=== PATIENT | female | born 1995 | race African-American/Black ===

== ENCOUNTER 2022-08-13 08:40 | Emergency (ER) | payer MEDICAID, SELFPAY ==
[2022-08-13 08:45] VITALS: BP 122/99; PULSE 83; RESP 18; TEMP 36.9; O2SAT 97; BMI 32.4
--- OUTSIDE RECORDS SUMMARY | 2022-08-13 09:08 | XMS_ITS | Clinical Summary ---
:1995 Author Organization [facility] Address [address], [place] [address] Care Team Providers Name Role Phone Unavailable Primary Care Provider Unavailable Source Comments You are receiving this document as you are listed as the primary care provider,follow-up provider, or the patient has been referred to you for consultation.This is in compliance with the Medicare and Medicaid EHR Incentive Program,which states Providers who transition their patient to another setting of careor provider of care or refers their patient to another provider of care shouldprovide summarycare record for each transition of care or referral. [facility] Allergies No known active allergies Medications Medication Sig Dispensed Refills Start Date End Date Status ULTICARE MINI PEN 0 12/25/2020 A ctive NEEDLES Blood Glucose Use to test test 1 Kit 0 06/04/2021 Active Monitoring Suppl blood sugars (ACCU-CHEK GUIDE) w/Device KITIndications: Uncontrolled type 2 diabetes mellitus with hyperglycemia (HRC) insulin NPH, human Inject 18 Units 30 mL 3 11/02/2021 12/2 05/2022 Active isophane, (HUMULIN subcutaneously every NPH) 100 UNIT/ML evening. injectionIndication s: Uncontrolled type 2 diabetes mellitus with hyperglycemia (HRC), Obesity, unspecified obesity severity, unspecified obesity type (HRC) ACCU-CHEK GUIDE Use 5-6 Each to test 200 Strip 6 02/01/2022 Active test daily. stripIndications: Uncontrolled type 2 diabetes mellitus with hyperglycemia (HRC) ACCU-CHEK SOFTCLIX Use 4-6 Each to test 200 Each 6 02/01/2022 Active lancetsIndications: daily. Uncontrolled type 2 diabetes mellitus with hyperglycemia (HRC) NOVOLOG FLEXPEN 100 Inject 20-25 units 75 mL 3 02/11/2022 Active UNIT/ML pen with each meal injectionIndication s: Uncontrolled type 2 diabetes mellitus with hyperglycemia (HRC), Obesity, unspecified obesity severity, unspecified obesity type (HRC) Active Problems Problem Noted Date Uncontrolled type 2 diabetes mellitus with hyperglycem ia 05/13/2021 complicated by pre-existing type 2 diabetes in first trimester 05/13/2021 Obesity, unspecified obesity severity, unspecified obe sity type 05/13/2021 Social History Tobacco Use Types Packs/Day Years Used Date Smoking Tobacco: Never Smokeless Tobacco: Never Alcohol Use Standard Drinks/Week Comments Never 0 (1 standard drink = 0.6 oz pure alcoho l) Alcohol Habits Answer Date Recorded How often do you have a drink containing alcohol? Never 05/08/2021 How many drinks containing alcohol do you have on a typical Not asked day when you are drinking? How often do you have six or more drinks on one occasion? No t asked Comment: Not asked Sex Assigned at Date Recorded Not on file Last Filed Vital Signs Vital Sign Reading Time Taken Comments Blood Pressure 127/96 01/12/2021 11:21 AM WOOD LATHE OPERATOR Pulse 79 01/12/2021 11:21 AM WOOD LATHE OPERATOR Temperature - - Respiratory Rate - - Oxygen Saturation - - Inhaled Oxygen Concentration - - Weight 87.1 kg (192 lb 1.6 oz) 01/12/2021 11:21 AM WOOD LATHE OPERATOR Height 165.1 cm (5' 5) 01/12/2021 11:21 AM WOOD LATHE OPERATOR Body Mass Index 31.97 01/12/2021 11:21 AM WOOD LATHE OPERATOR Plan of Treatment Upcoming Encounters Date Type Specialty Care Team Description 09/08/2022 Telemedicine Endocrinology Marsha Acosta ra, MD [address] [facility] [id number] (Wo rk) Health Maintenance Due Date Last Done Comments Cervical Cancer Screening Due 1993 Diabetes: Foot Exam 1993 COVID-19 Vaccine (#1) 1993 Pneumococcal (1 - PCV) 1999 HIV Screening (Preventive 2009 Services) Adult Preventive Visit 2011 DTaP/Tdap/Td (1 - Tdap) 2012 HepB (1) 2012 Diabetes: HGBA1C 03/28/2021 12/29/2020, 12/29/2020 Diabetes: Creatinine 12/29/2021 12/29/2020 Diabetes: Urine Microalbumin 12/29/2021 12/29/2020 Diabetes: Eye Exam 01/27/2022 01/27/2021 Influenza (#1) 2022 12/18/2020, 12/18/2020, 10/22/2019 Diabetes: Lipid Panel 12/29/2025 12/29/2020 Zoster/Shingles (1 of 2) 2043 HPV Vaccine Aged Out 12/18/2020, No longer eligib le based 05/13/2020, on patient's age to 10/22/2019 complete [facility] to [facility] Hep C Screening (Preventive Completed 01/12/2021 Services) HepA Aged Out No longer eligib le based on patient's age to complete this to pic Hib Aged Out No longer eligib le based on patient's age to complete this to pic IPV (Polio) Aged Out No longer eligib le based on patient's age to complete this to pic MCV4 Aged Out No longer eligib le based on patient's age to complete this to pic
--- OUTSIDE RECORDS SUMMARY | 2022-08-13 09:08 | XMS_ITS | Encounter Summary ---
:1995 Author Organization [facility] Address [address] [address] Care Team Providers Name Role Phone Unavailable Primary Care Provider Unavailable Encounter Details Date Type Department Care Team Description 02/11/2022 Notes/Orders [facility] [address] Lavern Santos Uncont rollgoldie type 2 diabetes mellitus with hyperglycemia (HRC); Endocrinology RN Obesity, unspecified obesity severity, unspecified obesity type [address] [place] [address] Social History Tobacco Use Types Packs/Day Years [...] Assigned at Date Recorded Not on file documented as of this encounter Progress Notes Lavern Santos RN - 02/11/2022 9:22 AM CDT Pt called asking for an updated Rx of Novolog to reflect her current dose of 20- 25 units per meal. She is 7 months and her OB increased her dose. She is out of insulin as of today. Please review Rx and sign if appropriate, thank you! documented in this encounter Plan of Treatment Upcoming Encounters Date Type Specialty Care Team Description 09/08/2022 Telemedicine Endocrinology Marsha Acosta ra, MD [address] [facility] [address] [id number] (Wo rk) documented as of this encounter Visit Diagnoses Diagnosis Uncontrolled type 2 diabetes mellitus wi th hyperglycemia (HRC) Obesity, unspecified obesity severity, u nspecified obesity type (HRC) documented in this encounter
--- OUTSIDE RECORDS SUMMARY | 2022-08-13 09:08 | XMS_ITS | Encounter Summary ---
:1995 Author Organization [facility] Address [address], [place] [address] Care Team Providers Name Role Phone Unavailable Primary Care Provider Unavailable Reason for Visit Reason Onset Date Comments Refill 02/11/2022 Encounter Details Date Type Department Care Team Description 02/11/2022 Refill [facility] 3800 Jeanette Flynn PA-C Refill Endocrinology [address] [place] [address] [place], [place] [id number] [phone] Social History Tobacco Use Types Packs/Day Years [...] on file documented as of this encounter Plan of Treatment Upcoming Encounters Date Type Specialty Care Team Description 09/08/2022 Telemedicine Endocrinology Marsha Acosta ra, MD [address] [facility] N [id number] (Wo rk) documented as of this encounter Visit Diagnoses Diagnosis Uncontrolled type 2 diabetes mellitus wi th hyperglycemia (HRC) Obesity, unspecified obesity severity, u nspecified obesity type (HRC) documented in this encounter
--- OUTSIDE RECORDS SUMMARY | 2022-08-13 09:08 | XMS_ITS | Encounter Summary ---
:1995 Author Organization [facility] Address [address] [address] Care Team Providers Name Role Phone Unavailable Primary Care Provider Unavailable Reason for Visit Reason Onset Date Comments Refill 02/01/2022 Encounter Details Date Type Department Care Team Description 02/01/2022 Refill [facility] 3800 Elizabeth Rodríguez MD Refill Endocrinology [address] [place] [address] [place] [address] [phone] Social History Tobacco Use Types Packs/Day Years [...] on file documented as of this encounter Nursing Notes Henrietta Otero RN - 02/01/2022 12:01 PM CDT Renewed medication per medication refill protocol. Requested Prescriptions Signed Prescriptions Disp Refills ??? ACCU-CHEK GUIDE test strip 200 Strip 6 Sig: Use 5-6 Each to test daily. Authorizing Provider: SANJU RODRÍGUEZ Ordering User: HENRIETTA OTERO ??? ACCU-CHEK SOFTCLIX lancets 200 Each 6 Sig: Use 4-6 Each to test daily. Authorizing Provider: SANJU RODRÍGUEZ Ordering User: HENRIETTA OTERO documented in this encounter Plan of Treatment Upcoming Encounters Date Type Specialty Care Team Description 09/08/2022 Telemedicine Endocrinology Marsha Rodríguez ra, MD [address] [facility] [id number] (Wo rk) documented as of this encounter Visit Diagnoses Diagnosis Uncontrolled type 2 diabetes mellitus wi th hyperglycemia (HRC) - Primary documented in this encounter
--- OUTSIDE RECORDS SUMMARY | 2022-08-13 09:09 | XMS_ITS | Encounter Summary ---
:1995 Author Organization [facility] Address [address], [place] [address] Care Team Providers Name Role Phone Unavailable Primary Care Provider Unavailable Encounter Details Date Type Department Care Team Description 11/02/2021 Telephone [facility] 3800 Celina Acosta , Endocrinology [address] [place] [address] [place] [address] (Wo rk) Social History Tobacco Use Types Packs/Day Years [...] documented as of this encounter Nursing Notes Jeanette Flynn PA-C - 11/02/2021 1:41 PM CST Prescriptions signed and sent in Dr. Acosta's absence. Thank you, Jeanette Flynn PA-C 11/02/2021, 1:41 PM ICAL LANGUAGES PROFESSOR Elizabeth Vaca RN - 11/02/2021 1:31 PM CST Pharmacy calling in. Pt is at pharmacy for refill. They do not have updated rx at [facility]. See note from 10/13. Please see pending rx and send if approved. Pt verified dosing with pharmacy. Routing to refrigeration service inspector as Dr. Acosta not in. ICAL LANGUAGES PROFESSOR documented in this encounter Plan of Treatment Upcoming Encounters Date Type Specialty Care Team Description 09/08/2022 Telemedicine Endocrinology Marsha Acosta ra, MD [address] [facility] N [id number] (Wo rk) documented as of this encounter Visit Diagnoses Diagnosis Uncontrolled type 2 diabetes mellitus wi th hyperglycemia (HRC) Obesity, unspecified obesity severity, u nspecified obesity type (HRC) documented in this encounter
--- OUTSIDE RECORDS SUMMARY | 2022-08-13 09:09 | XMS_ITS | Encounter Summary ---
:1995 Author Organization [employer] Address [address] [address] Care Team Providers Name Role Phone Unavailable Primary Care Provider Unavailable Reason for Visit Reason Comments Medication Change Encounter Details Date Type Department Care Team Description 10/09/2021 Telephone [facility] 38[address] Celina Acosta edication Change Endocrinology TMD [address] [place] [address] [address] [place], [place] [phone] (Wo rk) Social History Tobacco Use Types [...] documented as of this encounter Nursing Notes Tracey Clark, RN - 10/09/2021 2:00 PM CST Pt returning call for below message. She verbalizes understanding and is agreeable to the plan of care. She does not want to schedule with Grisel Alcala yet, stating she will call back another time. CARE RN Tracey Clark, RN - 10/09/2021 1:21 PM CST LVM for pt to call back for below. CARE RN Celina Acosta MD - 10/09/2021 12:55 PM CST She can start with just once at night and at 16 units only and follow up with Grisel in 1-[address] she will not have any lows. We will slowly titrate it depending on sugars. Celina Acosta MD Endocrinology Service CARE RN Tracey Clark, SAIMA - 10/09/2021 12:33 PM CST Pt calling today questioning new prescription for NPH insulin. She was under the understanding her new long acting insulin was going to be taken at night. She wants to verify she was prescribed the right drug with the right instructions. Reviewed visit note with pt- she still insisted MD be notified of her questions. CARE RN documented in this encounter Plan of Treatment Upcoming Encounters Date Type Specialty Care Team Description 09/08/2022 Telemedicine Endocrinology Marsha Acosta ra, MD [address] [facility] [address] [facility] [address] (Wo rk) documented as of this encounter Visit Diagnoses Not on filedocumented in this encounter
--- OUTSIDE RECORDS SUMMARY | 2022-08-13 09:09 | XMS_ITS | Encounter Summary ---
:1995 Author Organization [facility] Address [address], [place] [address] Care Team Providers Name Role Phone Unavailable Primary Care Provider Unavailable Reason for Visit Reason Comments Follow-up Encounter Details Date Type Department Care Team Description 06/03/2021 Telephone [facility] 3800 Sanju Rodríguez , Follow-up Endocrinology [address] [place] [address] [place], [place] [phone] (Wo rk) Social History Tobacco Use Types [...] as of this encounter Progress Notes Lavern Richmond, RN - 06/04/2021 9:37 AM CDT Addended by: LAVERN RICHMOND on: 06/04/2021 09:37 AM Modules accepted: Orders documented in this encounter Nursing Notes Lavern Richmond RN - 06/04/2021 9:35 AM CDT Pt. Verbalized understanding, agrees with plan, and has no further questions. Requested Prescriptions Signed Prescriptions Disp Refills ??? metFORMIN XR (GLUCOPHAGE XR) 500 MG 24 hour release tablet 30 Tablet 6 Sig: Take 1 Tablet by mouth every evening with a meal. Authorizing Provider: SANJU RODRÍGUEZ ??? Blood Glucose Monitoring Suppl (ACCU-CHEK GUIDE) w/Device KIT 1 Kit 0 Sig: Use to test test blood sugars Authorizing Provider: SANJU RODRÍGUEZ Ordering User: LAVERN RICHMOND Pt asked for a new meter as well. Lavern Richmond RN - 06/04/2021 8:50 AM CDT Left voicemail for Pt. To call back for message below. Sanju Rodríguez MD - 06/03/2021 5:44 PM CDT PLAN: DC insulin. Start Metformin 500 mg BID. FU in 3 months. Sanju Rodríguez MD Endocrinology Service Elizabeth Vaca RN - 06/03/2021 11:27 AM CDT Pt wanted to call and updated that she is no longer . She states since she is no longer , she should not use insulin. She wants to know what she should continue on now. She states her meter is reading the same numbers if she eats or not. If she tests before eating it will be 100 or less, and 1 hour after eating it is the same. She states she is getting multiple error messages. Pt wants you to advise. documented in this encounter Plan of Treatment Upcoming Encounters Date Type Specialty Care Team Description 09/08/2022 Telemedicine Endocrinology Marsha Rodríguez ra, MD [address] [facility] [address] [id number] (Wo rk) documented as of this encounter Visit Diagnoses Diagnosis Uncontrolled type 2 diabetes mellitus wi th hyperglycemia (HRC) - Primary documented in this encounter
--- OUTSIDE RECORDS SUMMARY | 2022-08-13 09:09 | XMS_ITS | Encounter Summary ---
:1995 Author Organization [facility] Address [address] [address] Care Team Providers Name Role Phone Unavailable Primary Care Provider Unavailable Reason for Visit Reason Comments Appt. Needed referral Encounter Details Date Type Department Care Team Description 12/26/[address] [facility] 3800 Nurse, [id number] End Appt. Needed Endocrinology [address] (referral) [address] [place] [id number] Social History Tobacco Use Types Packs/Day Years Used Date Smoking Tobacco: Never Assessed Sex Assigned at Date Recorded Not on file documented as of this encounter Nursing Notes Evangelina Smith - 12/26/2020 10:28 AM CST Faxed referral rec'd from [facility] for Hyperglycemia and DM2, records sent to scan doc AL SCIENCE INSTRUCTOR documented in this encounter Plan of Treatment Upcoming Encounters Date Type Specialty Care Team Description 09/08/2022 Telemedicine Endocrinology Marsha Acosta ra, MD [address] [facility] N [id number] (Wo rk) documented as of this encounter Visit Diagnoses Not on filedocumented in this encounter
--- OUTSIDE RECORDS SUMMARY | 2022-08-13 09:09 | XMS_ITS | Encounter Summary ---
:1995 Author Organization [facility] Address [address], [place] [address] Care Team Providers Name Role Phone Unavailable Primary Care Provider Unavailable Reason for Visit Reason Comments Blood Glucose Readings Encounter Details Date Type Department Care Team Description 10/13/2021 Telephone [facility] [address] Celina Acosta lood Glucose Readings Endocrinology MD Rasheed [address] [facility] [address] [facility] [place] [address] [phone] (Wo rk) Social History Tobacco Use Types [...] documented as of this encounter Nursing Notes Lavern Santos RN - 10/15/2021 2:49 PM CST LVM on Pt's recording with message below. WARE TOOLS BUILD ENGINEER Celina Acosta MD - 10/15/2021 2:37 PM CST Please set visit with me or one of our PA. In the mean time, increase Humulin to 18 units, novolog to 14 units per meal. Celina Acosta MD Endocrinology Service WARE TOOLS BUILD ENGINEER Lavern Santos, RN - 10/13/2021 3:58 PM CST Pt called to report high blood sugars. Novolog 12 units with each meal Humulin 16 units in PM 10/13 after breakfast 162, before lunch 153 12/ bedtime 161, 185 12/ before lunch 125, after lunch 148 These are the only readings Pt had at time of her call. Nurse: Can leave a detailed VM. WARE TOOLS BUILD ENGINEER documented in this encounter Plan of Treatment Upcoming Encounters Date Type Specialty Care Team Description 09/08/2022 Telemedicine Endocrinology Marsha Acosta ra, MD [address] [facility] [address] [id number] (Wo rk) documented as of this encounter Visit Diagnoses Not on filedocumented in this encounter
--- OUTSIDE RECORDS SUMMARY | 2022-08-13 09:09 | XMS_ITS | Encounter Summary ---
:1995 Author Organization [facility] Address [address], [place] [address] Care Team Providers Name Role Phone Unavailable Primary Care Provider Unavailable Reason for Referral Consult/Transfer Care (Routine) - Closed Specialty Diagnoses / Procedures Referred By Contact Refer red To Contact Diagnoses Eye pain, bilateral Sanju Rodríguez MD [address] [place], [place] [address] Referral ID Status Reason Start Date Expiration Date Visits Requ ested Visits Authorized [id number] Closed 01/12/2021 04/13/2022 1 1 Scheduling Instructions Your provider has recommended an appoint ment with V[address]ana Rend[facility]. You may call [phone] to schedule your appoi ntment. STANT COMMUNITY DIRECTOR Reason for Visit Reason Comments Diabetes Encounter Details Date Type Department Care Team Description 01/12/2021 Office Visit Sanju Donovan Uncontrol led type 2 diabetes mellitus with hyperglycemia (HRC) (Primary Dx); Endocrinology Akash Iqbal MD Eye pain, bilateral [address] [facility] [place] [address] [address] [phone] [place] [address] Social History Tobacco Use Types Packs/Day Years Used Date Smoking Tobacco: Never Smokeless Tobacco: Never Sex Assigned at Date Recorded Not on file documented as of this encounter Last Filed Vital Signs Vital Sign Reading Time Taken Comments Blood Pressure 127/96 01/12/2021 11:21 AM ASSISTANT COMMUNITY DIRECTOR Pulse 79 01/12/2021 11:21 AM ASSISTANT COMMUNITY DIRECTOR Temperature - - Respiratory Rate - - Oxygen Saturation - - Inhaled Oxygen Concentration - - Weight 87.1 kg (192 lb 1.6 oz) 01/12/2021 11:21 AM ASSISTANT COMMUNITY DIRECTOR Height 165.1 cm (5' 5) 01/12/2021 11:21 AM ASSISTANT COMMUNITY DIRECTOR Body Mass Index 31.97 01/12/2021 11:21 AM ASSISTANT COMMUNITY DIRECTOR documented in this encounter Patient Instructions Patient InstructionsShSanju bucio MD - 01/12/2021 11:00 AM ASSISTANT COMMUNITY DIRECTOR Stop Lantus and before meal Humalog after you start using Bydureon. Start Bydureon 2 mg every week This medication will require you to change doses based on your blood sugar. See below for specific details: Blood sugar <150, give 0 units Blood sugar 151-200, give 2 units Blood sugar 201-250, give 4 units If higher than 251-300, give 6 units If higher than 301 use 8 units and call your doctor STANT COMMUNITY DIRECTOR documented in this encounter Progress Notes Sanju Rodríguez MD - 01/12/2021 11:00 AM ASSISTANT COMMUNITY DIRECTOR Addended by: SANJU RODRÍGUEZ on: 01/12/2021 03:54 PM Modules accepted: Orders STANT COMMUNITY DIRECTOR Sanju Rodríguez MD - 01/12/2021 11:00 AM CST ENDOCRINOLOGY VISIT OFFICE VISIT Date of visit: 01/12/2021 REASON FOR VISIT: Type 2 DM INTERVAL HISTORY: Ermelinda presents today for follow-up on type 2 diabetes mellitus, was late for appt. She was diagnosed with type 2 diabetes mellitus in December 2020. Ermelinda gained nearly 20 lbs over the last year or 2 after moving to [place] from [place]. She had polyuria and polydipsia and decided to go to the PCP. Her vision was blurry. Blood test showed BG>400 She was intially started on Metformin but BG did not improve, random testing was 530; when the dose was increased to 1000 mg daily, she had nausea She was then started on Glargine 10 units with Humalog 6 units with meals. During initial visit with me, we did a C-peptide levels which were normal, christ and other antibodies were negative. During our last visit, dose of Lantus was increased. She is currently taking 18 units. She continues to take Humalog 5 units with each meal. She did not bring her blood glucose meter but states that morning blood sugars are in the 70s and she feels shaky in the morning. She otherwise feels well except for pain in her eye. It is bilateral, retro orbital, and she has been seeing some halos around the like source No symptoms of neuropathy. No polyuria or polydipsia. Weight has remained stable, she is interested in weight loss I reviewed the lab results with the patient. We did not discuss about the elevated ALT levels but I have ordered full hepatic panel and hepatitispanel ASSESSMENT Ermelinda Calderon is a 25 y.o. female with: Hyperglycemia from Diabetes mellitus, type unknown. Diagnosed 12/2020 Weight gain, obesity BMI 31.4 Elevated LFTs Retro-orbital pain Barriers to achieving glycemic goals: None identified. PLAN: Start Bydureon 2 mg every week, I discussed the side effects with her in detail (no family history of thyroid cancers, no personal history of pancreatitis) She had side effects from metformin, we will hold this off. In future, we can restart metformin at 500 mg every day. Once she has started Bydureon some a she can use Humalog as sliding scale 2 units for every 50 mg/dLrise over 150. She can discontinue Lantus as well as pre meal Humalog Prevention: I made eye referral today because of the retro-orbital pain for assessment of glaucoma Return in about 3 months (around 04/14/2021) for Blood sugar review.. Sanju Rodríguez MD Endocrinology Service Test and/or medications prescribed today: Orders Placed This Encounter ??? Hepatic Function Panel ??? Hepatitis Panel with Reflex to Confirmation ??? Ophthalmology Consult-Adult/Peds Patient Instructions Stop Lantus and before meal Humalog after you start using Bydureon. Start Bydureon 2 mg every week This medication will require you to change doses based on your blood sugar. See below for specific details: Blood sugar <150, give 0 units Blood sugar 151-200, give 2 units Blood sugar 201-250, give 4 units If higher than 251-300, give 6 units If higher than 301 use 8 units and call your doctor HPI: Diabetes mellitus: Newly diagnosed. 12/2020 Ermelinda gained nearly 20 lbs over the last year or 2 after moving to [place] from [place]. She had polyuria and polydipsia and decided to go to the PCP Her vision was blurry. Blood test showed BG>400 She was intially started on Metformin but BG did not improve, random testing was 530 She was then started on Glargine 10 units with Humalog 6 units with meals. Diabetes Complications: None Current Diabetes Treatment Regimen: Lantus 18 units daily Humalog 5 units with meal Relevant PMSFSH: MGM with T2DM Pump Data: Meter Download Summary: No meter Diet: Eating lower carb Exercise: Started exercising, BG improves with exercise. Weight trend Wt Readings from Last 4 Encounters: 01/12/21 192 lb 1.6 oz (87.1 kg) 12/29/20 188 lb 8 oz (85.5 kg) A1c today is No components found for: A1C Review of Systems No polyuria or polydipsia. 10 point ROS was otherwise unremarkable. I have reviewed PMH/ PSH / FH / SH / MED / ALL in [facility]. OBJECTIVE BP (!) 127/96 (BP Location: Right Arm, BP Cuff Size: Large) Pulse 79 Ht 5' 5 (1.651 m) Wt 192lb 1.6 oz (87.1 kg) BMI 31.97 kg/m?? Constitutional: Pleasant and cooperative. No distress. EYES: PER, EOMI HEENT: Mouth/Throat: Mucous membrane is moist. No adenopathy. No large goiter Cardiovascular: RRR, S1, S2 normal. No tachycardia Pulmonary/Chest: CTAB. No wheezing or rales Abdominal: +BS. Nontender to palpation. Neurological: Alert. Normal speech and gait. Extremities: No clubbing, cyanosis or inflammation Skin: normal texture, color Lymphatic: no cervical lymphadenopathy. Psychological: appropriate mood In House Labs: Lab Results Component Value Date Hemoglobin A1C 11.5 (H) 12/29/2020 Hemoglobin A1C, POCT 10.5 (A) 12/29/2020 STANT COMMUNITY DIRECTOR documented in this encounter Plan of Treatment Upcoming Encounters Date Type Specialty Care Team Description 09/08/2022 Telemedicine Endocrinology Marsha Rodríguez ra, MD [address] [facility] [id number] (Wo rk) Scheduled Referrals Name Type Priority Associated Diagnoses Order S chedule Ophthalmology Referral Routine Eye pain, bilateral Ordered : 01/12/2021 Consult-Adult/Peds documented as of this encounter Results Hepatitis Panel with Reflex to Confirmation (01/12/2021 12:13 PM ASSISTANT COMMUNITY DIRECTOR) [facility] Method Time Signature Hepatitis A Negative Negative 01/12/2021 [facility] Antibody, IgM (Non (Non 8:06 PM ASSISTANT COMMUNITY DIRECTOR LABORATORY Reactive) Reactive) Comment: IgM anti-HAV not detected. Does not exclude the possibility of exposure to or infection with HAV. Levels of IgM ant i-HAV may be below the cut-off in early infection. Hepatitis Bc Negative (Non Negative 01/12/2021 8:[address] Antibody,IgM Reactive) (Non-Reactive) PM ASSISTANT COMMUNITY DIRECTOR LABORATORY Comment: IgM anti-HBc not detected. Does not exclude the possibility of exposure to or infection with HBV. Hepatitis B Negative (Non Negative (Non 01/12/2021 8:06 [facility] Surface Antigen Reactive) Reactive) PM ASSISTANT COMMUNITY DIRECTOR LABORATORY Hepatitis C Negative (Non Negative (Non 01/12/2021 8:06 [facility] Antibody Reactive) Reactive) PM ASSISTANT COMMUNITY DIRECTOR LABORATORY Comment: Antibodies to HCV not detected. Does not exclude the possiblity of exposure to HCV. Specimen Anatomical Collection Method / Collection Time Recei chantelle Time (Source) Location / Volume Laterality Blood Venipuncture / 01/12/2021 12:13 03/08/202 1 Unknown PM ASSISTANT COMMUNITY DIRECTOR 12:13 PM ASSISTANT COMMUNITY DIRECTOR Sanju Rodríguez MD LAB_1 Performing Organization Address City/State/ZIP Code Phon e Number [facility] [address] [place] [address] (ABNORMAL) Hepatic Function Panel (01/12/2021 12:13 PM ASSISTANT COMMUNITY DIRECTOR) [facility] Method Time Signature Alkaline 91 40 - 150 01/12/2021 [facility] Phosphatase U/L 3:05 PM ASSISTANT COMMUNITY DIRECTOR LABORATORY Bilirubin, Total 0.2 0.2 - 1.2 01/12/2021 [facility] mg/dL 3:05 PM ASSISTANT COMMUNITY DIRECTOR LABORATORY Bilirubin, 0.1 0.0 - 0.5 01/12/2021 [facility] Direct mg/dL 3:05 PM ASSISTANT COMMUNITY DIRECTOR LABORATORY AST (SGOT) 21 10 - 40 01/12/2021 [facility] U/L 3:05 PM ASSISTANT COMMUNITY DIRECTOR LABORATORY ALT (SGPT) 26 0 - 55 U/L 01/12/2021 [facility] 3:05 PM ASSISTANT COMMUNITY DIRECTOR LABORATORY Protein, Total 6.7 6.4 - 8.3 01/12/2021 [facility] g/dL 3:05 PM ASSISTANT COMMUNITY DIRECTOR LABORATORY Albumin 3.1 (L) 3.5 - 5.0 01/12/2021 [facility] g/dL 3:05 PM ASSISTANT COMMUNITY DIRECTOR LABORATORY Specimen Anatomical Collection Method / Collection Time Recei chantelle Time (Source) Location / Volume Laterality Blood Venipuncture / 01/12/2021 12:13 1 Unknown PM ASSISTANT COMMUNITY DIRECTOR 12:13 PM ASSISTANT COMMUNITY DIRECTOR Sanju Rodríguez MD LAB_1 Performing Organization Address City/State/ZIP Code Phon e Number [facility] [address] [place] [address] documented in this encounter Visit Diagnoses Diagnosis Uncontrolled type 2 diabetes mellitus wi th hyperglycemia (HRC) - Primary Eye pain, bilateral documented in this encounter
--- OUTSIDE RECORDS SUMMARY | 2022-08-13 09:09 | XMS_ITS | Encounter Summary ---
:1995 Author [facility] Address [address] [address] Care Team Providers Name Role Phone Unavailable Primary Care Provider Unavailable Reason for Visit Reason Comments LAB RESULTS Encounter Details Date Type Department Care Team Description 03/02/2021 Telephone [facility] [address] , LAB RESULTS Endocrinology [address] [place] [address] [place], [place] [address] (Wo rk) Social History Tobacco Use Types Packs/Day Years Used Date Smoking Tobacco: Never Smokeless Tobacco: Never Sex Assigned at Date Recorded Not on file documented as of this encounter Nursing Notes Lavern Asher RN - 03/02/2021 9:38 AM CDT Pt. Verbalized understanding, agrees with plan, and has no further questions. Lavern Asher RN - 03/02/2021 8:58 AM CDT Left voicemail for Pt. To call back for message below. Lavern Asher RN - 03/02/2021 8:58 AM CDT ----- Message from Celina Acosta MD sent at 03/01/2021 2:49 PM CDT ----- Please report to Ermelinda that lipase is normal -- no evidence to support pancreatitis, which is reassuring. Best regards, Celina Acosta MD Endocrinology Service documented in this encounter Plan of Treatment Upcoming Encounters Date Type Specialty Care Team Description 09/08/2022 Telemedicine Endocrinology Marsha Acosta ra, MD [address] [facility] [place] [address] (Wo rk) documented as of this encounter Visit Diagnoses Not on filedocumented in this encounter
--- OUTSIDE RECORDS SUMMARY | 2022-08-13 09:09 | XMS_ITS | Encounter Summary ---
:1995 Author Organization [email or web address] Address [address], [place] [address] Care Team Providers Name Role Phone Unavailable Primary Care Provider Unavailable Reason for Visit Reason Comments Appt. Needed 2 week f/u with Gr[facility] Encounter Details Date Type Department Care Team Description 10/02/2021 Telephone [facility] 38[address] Nurse, [id number] End Appt. Needed (2 week Endocrinology [address] f/u with Grisel) [address] [place] [id number] Social History Tobacco Use Types Packs/Day Years [...] this encounter Nursing Notes Evangelina Smith - 10/02/2021 11:22 AM CST LVM to schedule 2W f/u with [facility] pt does not have [facility] LY SIGN LANGUAGE INTERPRETER documented in this encounter Plan of Treatment Upcoming Encounters Date Type Specialty Care Team Description 09/08/2022 Telemedicine Endocrinology Marsha Acosta ra, MD [address] [facility] N [id number] (Wo rk) documented as of this encounter Visit Diagnoses Not on filedocumented in this encounter
--- OUTSIDE RECORDS SUMMARY | 2022-08-13 09:09 | XMS_ITS | Encounter Summary ---
:1995 Author Organization [facility] Address [address], [place] [address] Care Team Providers Name Role Phone Unavailable Primary Care Provider Unavailable Reason for Visit Reason Comments LAB RESULTS Encounter Details Date Type Department Care Team Description 01/06/2021 Telephone [facility] [address] , LAB RESULTS Endocrinology [address] [place] [address] [place], [place] [id number] (Wo rk) Social History Tobacco Use Types Packs/Day Years Used Date Smoking Tobacco: Never Smokeless Tobacco: Never Sex Assigned at Date Recorded Not on file documented as of this encounter Nursing Notes Lavern Asher, RN - 01/06/2021 4:29 PM CST Pt already spoke to a previous nurse about this. ER MACHINE Lavern Asher RN - 01/06/2021 4:28 PM CST ----- Message from Celina Acosta MD sent at 01/06/2021 3:54 PM ETCHER MACHINE ----- Please report to Ms. Calderon that labs show uncontrolled A1c, elevated LDL, and is consistent with type 2 diabetes. One of the test for liver enzyme is slightly high which can be from weight gain but we will follow this lab in future labs. Also, please change the appt to next available (1 -2 week) to discuss medication changes. Celina Acosta MD Endocrinology Service ER MACHINE documented in this encounter Plan of Treatment Upcoming Encounters Date Type Specialty Care Team Description 09/08/2022 Telemedicine Endocrinology Marsha Acosta ra, MD [address] [facility] [place] [id number] (Wo rk) documented as of this encounter Visit Diagnoses Not on filedocumented in this encounter
--- OUTSIDE RECORDS SUMMARY | 2022-08-13 09:09 | XMS_ITS | Encounter Summary ---
:1995 Author Organization [facility] Address [address], [place] [address] Care Team Providers Name Role Phone Unavailable Primary Care Provider Unavailable Reason for Visit Reason Comments Medication Questions Encounter Details Date Type Department Care Team Description 01/12/2021 Telephone [facility] [address] edication Questions Endocrinology MD Ras[place] [address] [facility] [address] [facility] [place] [address] [phone] (Wo rk) Social History Tobacco Use Types Packs/Day Years Used Date Smoking Tobacco: Never Smokeless Tobacco: Never Sex Assigned at Date Recorded Not on file documented as of this encounter Nursing Notes Nelli Serrano RN - 01/14/2021 10:44 AM CST Called pt; left a detailed vm (see ok to leave msg below) outlining message below. LER SECTIONS ASSEMBLER Wagner Castellanos RN - 01/12/2021 4:05 PM CST Images from the original note were not included. Celina Acosta MD Endo Pn Nursing Team 1 Bydureon was sent to [facility]. Metformin: We planned not to start this at this time given the risk of side effects of starting 2 medications. She should start Bydureon and stop the insulin as discussed. If the sugars are higher, call clinic with BG report and we will plan to add Metformin. Thanks RTS Left message requesting patient return call for provider recommendations above. LER SECTIONS ASSEMBLER Grace Ryan RN - 01/12/2021 1:28 PM CST Patient calling requesting prescription for metformin and bydureon. Scripts not previously filled byour department, RN unable to sign. Pt. States she is not sure what doses and when to take these medications, please advise and order asindicated. Thank you NURSE: okay to LVM LER SECTIONS ASSEMBLER documented in this encounter Plan of Treatment Upcoming Encounters Date Type Specialty Care Team Description 09/08/2022 Telemedicine Endocrinology Marsha Acosta ra, MD [address] [facility] [place] [address] (Wo rk) documented as of this encounter Visit Diagnoses Not on filedocumented in this encounter
--- OUTSIDE RECORDS SUMMARY | 2022-08-13 09:09 | XMS_ITS | Encounter Summary ---
:1995 Author Organization [facility] Address [address], [place] [address] Care Team Providers Name Role Phone Unavailable Primary Care Provider Unavailable Encounter Details Date Type Department Care Team Description 02/27/2021 Lab Visit [facility] Uncontrolled type 2 diabetes [address] [facility] mellitus [place] [address] ([facility]) [phone] Social History Tobacco Use Types Packs/Day Years Used Date Smoking Tobacco: Never Smokeless Tobacco: Never Sex Assigned at Date Recorded Not on file documented as of this encounter Plan of Treatment Upcoming Encounters Date Type Specialty Care Team Description 09/08/2022 Telemedicine Endocrinology Marsha Acosta ra, MD [address] [facility] [address] (Wo rk) documented as of this encounter Procedures Procedure Name Priority Date/Time Associated Diagnosis Comme nts LIPASE Routine 02/27/2021 4:38 PM Uncontrolled type 2 Re sults for this CDT diabetes mellitus with proce dure are in hyperglycemia (HRC) the resu lts section. documented in this encounter Results Lipase (02/27/2021 4:38 PM CDT) P athologist Signature Lipase 19 8 - 78 U/L 02/27/2021 [place] 5:20 PM CDT LABORATORY Specimen Anatomical Collection Method / Collection Time Recei chantelle Time (Source) Location / Volume Laterality Blood Venipuncture / 02/27/2021 4:38 02/27/2021 4:38 Unknown PM CDT PM CDT Celina Aocsta MD LAB_1 Performing Organization Address City/State/ZIP Code Phon e Number [facility] [address] [place] [address] documented in this encounter Visit Diagnoses Diagnosis Uncontrolled type 2 diabetes mellitus wi th hyperglycemia (HRC) documented in this encounter
--- OUTSIDE RECORDS SUMMARY | 2022-08-13 09:09 | XMS_ITS | Encounter Summary ---
:1995 Author Organization [facility] Address [address], [place] [address] Care Team Providers Name Role Phone Unavailable Primary Care Provider Unavailable Reason for Visit Reason Comments Diabetes Eye Exam Pt 5 mins late Encounter Details Date Type Department Care Team Description 01/27/2021 Office Visit [place] [address] Bryanna Kim, OD Diabetes mellitus type 2 without retinop athy (HRC) (Primary Dx); Ophthalmology [address] [facility] Examination [place] on; [address] [place]; [place], [place] Dry eyes [id number] [phone] (Wo rk) Social History Tobacco Use Types Packs/Day Years Used Date Smoking Tobacco: Never Smokeless Tobacco: Never Sex Assigned at Date Recorded Not on file documented as of this encounter Progress Notes AndreinaBryanna hadley, OD - 01/27/2021 1:40 PM CDT General medical assessment: Patient is alert and feeling well. Medical history, current medications,and allergies reviewed. Assessment: 1. Diabetes mellitus type 2 without retinopathy (HRC) 2. Examination of eyes and vision 3. [place] 4. Dry eyes Plan: 1. No diabetic retinopathy both eyes. Patient educated on taking medications as directed, good bloodsugar control, healthy diet, routine exercise, and regular follow-ups with PCP. Monitor annually with dilated eye exam. 2-3. No glasses necessary at this time. 4. Discussed relationship between intermittent eye pain and dry eyes. Advised to use artifical tearsBID-QID PRN painful/watery eyes. Call if symptoms worsen or persist. RTC 1 year or sooner with any changes. documented in this encounter Plan of Treatment Upcoming Encounters Date Type Specialty Care Team Description 09/08/2022 Telemedicine Endocrinology Marsha Acosta ra, MD [address] [facility] [place] [address] (Wo rk) documented as of this encounter Visit Diagnoses Diagnosis Diabetes mellitus type 2 without retinop athy (HRC) - Primary Type II or unspecified type diabetes sushma litus without mention of complication, not stated as uncontrolled Examination of eyes and vision [place] Screening for other eye conditions Dry eyes Tear film insufficiency, unspecified documented in this encounter
--- OUTSIDE RECORDS SUMMARY | 2022-08-13 09:09 | XMS_ITS | Encounter Summary ---
:1995 [facility] Address [address], [place] [address] Care Team Providers Name Role Phone Unavailable Primary Care Provider Unavailable Encounter Details Date Type Department Care Team Description 01/12/2021 Lab Visit [facility] Uncontrolled type 2 diabetes [id number] [facility] [place] [address] ([facility]) [phone] Social History Tobacco Use Types Packs/Day Years Used Date Smoking Tobacco: Never Smokeless Tobacco: Never Sex Assigned at Date Recorded Not on file documented as of this encounter Plan of Treatment Upcoming Encounters Date Type Specialty Care Team Description 09/08/2022 Telemedicine Endocrinology Marsha Acosta ra, MD [address] [facility] [id number] (Wo rk) documented as of this encounter Procedures Procedure Name Priority Date/Time Associated Diagnosis Comme nts HEPATITIS PANEL ACUTE Routine 01/12/2021 12:13 Uncontrolled ty pe 2 Results for this WITH REFLEX TO PM [facility]PERATOR diabetes mellitus procedur e are in CONFIRMATION with hyperglycemia the [facility] ([facility]) section. LIVER PANEL(HEPATIC Routine 01/12/2021 12:13 Uncontrolled type 2 Results for this FUNCTION PANEL) PM [employer]PER[facility] diabetes mellitus procedu re are in with hyperglycemia the [facility] ([facility]) section. documented in this encounter Results Hepatitis Panel with Reflex to Confirmation (01/12/2021 12:13 PM LIGHT OIL OPERATOR) [facility] Method Time Signature Hepatitis A Negative Negative 01/12/2021 [facility] Antibody, IgM (Non (Non 8:06 PM [facility] Reactive) Reactive) Comment: IgM anti-HAV not detected. Does not exclude the possibility of exposure to or infection with HAV. Levels of IgM ant i-HAV may be below the cut-off in early infection. Hepatitis Bc Negative (Non Negative 01/12/2021 8:[address] Antibody,IgM Reactive) (Non-Reactive) PM [facility] Comment: IgM anti-HBc not detected. Does not exclude the possibility of exposure to or infection with HBV. Hepatitis B Negative (Non Negative (Non 01/12/2021 8:06 [facility] Surface Antigen Reactive) Reactive) PM [facility] Hepatitis C Negative (Non Negative (Non 01/12/2021 8:06 [facility] Antibody Reactive) Reactive) PM [facility] Comment: Antibodies to HCV not detected. Does not exclude the possiblity of exposure to HCV. Specimen Anatomical Collection Method / Collection Time Recei chantelle Time (Source) Location / Volume Laterality Blood Venipuncture / 01/12/2021 12:13 Unknown PM [facility]IL OPERATOR 12:13 PM L[facility] OIL OPERATOR Celina Acosta MD LAB_1 Performing Organization Address City/State/ZIP Code Phon e Number [facility] [address] [place] [address] (ABNORMAL) Hepatic Function Panel (01/12/2021 12:13 PM LIGHT OIL OPERATOR) [facility] Method Time Signature Alkaline 91 40 - 150 01/12/2021 [facility] Phosphatase U/L 3:05 PM [facility] Bilirubin, Total 0.2 0.2 - 1.2 01/12/2021 [facility] mg/dL 3:05 PM [facility] Bilirubin, 0.1 0.0 - 0.5 01/12/2021 [facility] Direct mg/dL 3:05 PM [facility] AST (SGOT) 21 10 - 40 01/12/2021 [facility] U/L 3:05 PM [facility] ALT (SGPT) 26 0 - 55 U/L 01/12/2021 [facility] 3:05 PM [facility] Protein, Total 6.7 6.4 - 8.3 01/12/2021 [facility] g/dL 3:05 PM [facility] Albumin 3.1 (L) 3.5 - 5.0 01/12/2021 [facility] g/dL 3:05 PM [facility] Specimen Anatomical Collection Method / Collection Time Recei chantelle Time (Source) Location / Volume Laterality Blood Venipuncture / 01/12/2021 12:13 1 Unknown PM LIGHT OIL OPERATOR 12:13 PM LIGHT OIL OPERATOR Celina Acosta MD LAB_1 Performing Organization Address City/State/[facility] Code Phon e Number [facility] [id number] [place] [address] documented in this encounter Visit Diagnoses Diagnosis Uncontrolled type 2 diabetes mellitus wi th hyperglycemia (HRC) documented in this encounter
--- OUTSIDE RECORDS SUMMARY | 2022-08-13 09:09 | XMS_ITS | Encounter Summary ---
:1995 Author Organization [facility] Address [address] [address] Care Team Providers Name Role Phone Unavailable Primary Care Provider Unavailable Reason for Visit Reason Comments Appt. Needed 4W f/u w/APC Encounter Details Date Type Department Care Team Description 05/14/2021 Telephone [facility] [address] Celina Acosta ppt. Needed (4W f/u Endocrinology T, w/APC) [address] [facility] [place] [address] [phone] (Wo rk) Social History Tobacco Use Types [...] this encounter Nursing Notes Evangelina Smith - 06/02/2021 9:44 AM CDT LVM #2 to schedule 4W f/u w/[facility] Evangelina Smith - 05/14/2021 11:17 AM CDT LVM to schedule 4W f/u with one of the [employer] [facility]/PA's documented in this encounter Plan of Treatment Upcoming Encounters Date Type Specialty Care Team Description 09/08/2022 Telemedicine Endocrinology Marsha Acosta ra, MD [address] [facility] Alexandra SHEIKH [id number] (Wo rk) documented as of this encounter Visit Diagnoses Not on filedocumented in this encounter
--- OUTSIDE RECORDS SUMMARY | 2022-08-13 09:09 | XMS_ITS | Encounter Summary ---
:1995 Author Organization [facility] Address [address], [place] [address] Care Team Providers Name Role Phone Unavailable Primary Care Provider Unavailable Reason for Referral Consult/Transfer Care (Routine) - Closed Specialty Diagnoses / Procedures Referred By Contact Refer red To Contact Diagnoses Uncontrolled type 2 diabetes mellitus with hyperglycemia (HRC) Celina Acosta MD [address] [place], [place] [address] Referral ID Status Reason Start Date Expiration Date Visits Requ ested Visits Authorized [id number] Closed 05/13/2021 08/12/2022 1 1 Scheduling Instructions Your provider has recommended an appoint ment with [facility]. You may call [phone] to schedule yo ur appointment. We suggest you call your health insurance company about your cove rage and benefits for this appointment. Reason for Visit Reason Comments Follow-up Encounter Details Date Type Department Care Team Description 05/13/2021 Telemedicine [facility] [address] Celina Acosta Unc ontrolled type 2 diabetes mellitus with hyperglycemia (HRC) (Primary Dx); Brian Iqbal MD complicated by pre-existing ty pe 2 diabetes in first trimester; Yasmany Rendon [address], unspecified obesity severity, unspecified obesity [place] [address] [phone] Social History Tobacco Use Types Packs/Day Years [...] documented as of this encounter Progress Notes aWgner Castellanos RN - 05/13/2021 3:00 PM CDT LVM on 05/08 requesting pt return call for chart prep. Colin Marshall RN - 05/13/2021 3:00 PM CDT Pre-Visit Planning for Phone/Video Visit: Diabetes Pre-visit planning completed. Reviewed the following: - Medications (pended refills) - Pharmacy - Allergies - Last foot & eye exam - Tobacco/alcohol use Current Diabetes Medications Insulin: Glargine (Lantus) 10 units daily Oral: Metformin (Glucophage) 500 mg daily Insulin: Aspart (Novolog) 5 units TID AC Patient Concerns: Pt wants to know if there are alternative treatments to insulin, that is a non-injectable. Reported Glucose Results: Date Fasting 1-2 hr post Pre-lunch 1-2 hr post Pre-dinner 1-2 hr post HS 05/08 105 136 7/ 105 135 106 133 05/06 116 121 05/05 05/03* 121 146* 146* 146* 05/02 134 172 190 No data No data *blood glucose stayed the same per pt. Celina Acosta MD - 05/13/2021 3:00 PM CDT ENDOCRINOLOGY VISIT OFFICE VISIT Date of visit: 05/13/2021 REASON FOR VISIT: Type 2 DM HPI Ermelinda presents today for follow-up on type 2 diabetes mellitus She was diagnosed with type 2 diabetes mellitus in December 2020. Ermelinda gained nearly 20 lbs over the last year or 2 after moving to [place] from [place]. She had polyuria and polydipsia and decided to go to the PCP. Her vision was blurry. Blood test showed BG>400 With Metformin but BG did not improve, random testing was 530; when the dose was increased to 1000 mg daily, she had nausea She was then started on Glargine 10 units with Humalog 6 units with meals. During initial visit with me, we did a C-peptide levels which were normal, christ and other antibodies were negative. ROS otherwise noncontributory to current presentation. I have reviewed PMH / PSH / FH and SH, Medications and Allergies in Epic today. Relevant PMSFSH: MGM with T2DM Diet: discussed spreading the carbs thru out the day. Exercise: encouraged using treadmill. INTERVAL HISTORY 7 weeks now. Saw OB -- advised to start Glargine and Aspart. Unclear if she stopped it in the interim She has been using it, but concerned about using glargine during after she read blogs. Also worried about using belly site. Reassured. BG reviewed, AM sugars are higher than target range. ASSESSMENT Ermelinda Calderon is a 26 y.o. female with: T2DM Diagnosed 12/2020, sub-optimal control without DM complications. First trimester . Weight gain, Obesity BMI 31.4 Elevated LFTs,, resolved Barriers to achieving glycemic goals: Reluctance to use insulin. Discussed importance of using insulin during , can try differentoptions after delivery. (Bydureon was covered but it is no longer manufactured) Side effects from metformin. : Discussed insulin resistance, safest options for sugar management during . PLAN: Switch to levemir 14 units daily. Fasting <95 desired. Novolog 5 units per meal. Post meal <120 desired. Learn carb count - closely work with CDE, FARZANA teams to closely follow progress. Return in about 4 weeks (around 06/10/2021) for Blood sugar review., With Diabetic PA. Celina Acosta MD Endocrinology Service Test and/or medications prescribed today: Orders Placed This Encounter ??? Diabetes Education Visit ??? insulin detemir (LEVEMIR FLEXTOUCH) 100 UNIT/ML pen There are no Patient Instructions on file for this visit. Weight trend Wt Readings from Last 4 Encounters: 01/12/21 192 lb 1.6 oz (87.1 kg) 12/29/20 188 lb 8 oz (85.5 kg) A1c today is No components found for: A1C In House Labs: Lab Results Component Value Date Hemoglobin A1C 11.5 (H) 12/29/2020 Hemoglobin A1C 10.5 (A) 12/29/2020 documented in this encounter Plan of Treatment Upcoming Encounters Date Type Specialty Care Team Description 09/08/2022 Telemedicine Endocrinology Marsha Acosta ra, MD [address] [facility] [id number] (Wo rk) Scheduled Referrals Name Type Priority Associated Diagnoses Order S chedule Diabetes Education Referral Routine Uncontrolled type 2 Or dered: 05/13/2021 Visit diabetes mellitus with hyperglycemia (HRC) documented as of this encounter Visit Diagnoses Diagnosis Uncontrolled type 2 diabetes mellitus wi th hyperglycemia (HRC) - Primary complicated by pre-existing ty pe 2 diabetes in first trimester Obesity, unspecified obesity severity, u nspecified obesity type (HRC) documented in this encounter
--- OUTSIDE RECORDS SUMMARY | 2022-08-13 09:09 | XMS_ITS | Encounter Summary ---
:1995 Author Organization [facility] Address [address], [place] [address] Care Team Providers Name Role Phone Unavailable Primary Care Provider Unavailable Reason for Visit Reason Comments Diabetes Encounter Details Date Type Department Care Team Description 12/29/2020 Office Visit [place] Celina Acosta [facility] led type 2 Endocrinology Akash Iqbal MD diabetes mellitus with [address] ADOP [address] [facility] hyperglycemia (HRC) [place] [address] Blvd (Primary Dx) [phone] [place], [place] [id number] Social History Tobacco Use Types Packs/Day Years Used Date Smoking Tobacco: Never Smokeless Tobacco: Never Sex Assigned at Date Recorded Not on file documented as of this encounter Last Filed Vital Signs Vital Sign Reading Time Taken Comments Blood Pressure 119/82 12/29/2020 1:52 PM TEXTILE ENGINEER Pulse 87 12/29/2020 1:52 PM TEXTILE ENGINEER Temperature - - Respiratory Rate - - Oxygen Saturation - - Inhaled Oxygen Concentration - - Weight 85.5 kg (188 lb 8 oz) 12/29/2020 1:52 PM TEXTILE ENGINEER Height 165.1 cm (5' 5) 12/29/2020 1:52 PM TEXTILE ENGINEER Body Mass Index 31.37 12/29/2020 1:52 PM TEXTILE ENGINEER documented in this encounter Progress Notes Demetri Rubalcava - 12/29/2020 1:30 PM CST Images from the original note were not included. ILE ENGINEER Celina Acosta MD - 12/29/2020 1:30 PM CST ENDOCRINOLOGY VISIT OFFICE VISIT Date of visit: 12/29/2020 REASON FOR VISIT: NEW ONSET DM ASSESSMENT Ermelinda Calderon is a 25 y.o. female with: Hyperglycemia from Diabetes mellitus, type unknown. Diagnosed 12/2020 Weight gain, obesity BMI 31.4 Barriers to achieving glycemic goals: None identified. PLAN: Check insulin Ab panel. Check C-peptide and glucose. glargine -- reduce dose to 18 units, given patients concern for low BG Continue Humalog 6 units with meals. She had side effects from metformin, we will hold this off until we have labs. Prevention: Regular preventive exams should include urine eval, foot and eye. Hypoglycemia prevention: CAD / PAD prevention: Return in about 4 weeks (around 01/26/2021) for Lab review.. Celina Acosta MD Endocrinology Service Test and/or medications prescribed today: Orders Placed This Encounter ??? Insulin Antibodies Panel ??? Glutamic Acid Decarboxylase Antibody ??? IA-2 Antibody ??? Islet Cell IGG Antibody ??? Glucose ??? C-Peptide, Serum or Plasma ??? Basic Metabolic Panel ??? LDL Cholesterol, Direct Measured ??? CK, Total ??? Vitamin B12 Only ??? Hgb A1C ??? TSH with Free T4 (if TSH Abnormal) ??? Microalbumin/Creatinine Ratio ??? ALT (SGPT) ??? POCT glycosylated hemoglobin (Hb A1C) There are no Patient Instructions on file for this visit. HPI: Diabetes mellitus: Newly diagnosed. 12/2020 Ermelinda gained nearly 20 lbs over the last year or 2 after moving to [place] from [place]. She had polyuria and polydipsia and decided to go to the PCP Her vision was blurry. Blood test showed BG>400 She was intially started on Metformin but BG did not improve, random testing was 530 She was then started on Glargine 10 units with Humalog 6 units with meals. 6 days ago, Glargine was increased to 20 units Yesterday BG improved to 150s and she lowered the Lantus to 10 units. Diabetes Complications: None Current Diabetes Treatment Regimen: Lantus 20 units daily Humalog 5 units with meal Relevant PMSFSH: MGM with T2DM Pump Data: Meter Download Summary: Reviewed. BG -- in 300-450 range when Lantus was 10 units per day. BG 150 with Lantus 20 units plus 6 units of Humalog with meals. Diet: Eating lower carb Exercise: Started exercising, BG improves with exercise. Weight trend Wt Readings from Last 4 Encounters: 12/29/20 188 lb 8 oz (85.5 kg) A1c today is No components found for: A1C Review of Systems No polyuria or polydipsia. 10 point ROS was otherwise unremarkable. I have reviewed PMH/ PSH / FH / SH / MED / ALL in [facility]. OBJECTIVE BP 119/82 (BP Location: Right Arm, BP Cuff Size: Regular) Pulse 87 Ht 5' 5 (1.651 m) Wt 188 lb 8 oz (85.5 kg) BMI 31.37 kg/m?? Constitutional: Pleasant and cooperative. No distress. [...] Labs: Lab Results Component Value Date Hemoglobin A1C, POCT 10.5 (A) 12/29/2020 ILE ENGINEER documented in this encounter Plan of Treatment Upcoming Encounters Date Type Specialty Care Team Description 09/08/2022 Telemedicine Endocrinology Marsha Acosta ra, MD [address] [facility] [place] N [address] (Wo rk) documented as of this encounter Procedures Procedure Name Priority Date/Time Associated Diagnosis Comme nts POCT GLYCOSYLATED Routine 12/29/2020 2:12 Uncontrolled type 2 Results for this HEMOGLOBIN (HGB A1C) PM TEXTILE ENGINEER diabetes mellitus pr ocedure are in with hyperglycemia [facility] ts (HRC) section. documented in this encounter Results Microalbumin/Creatinine Ratio (12/29/2020 2:51 PM TEXTILE ENGINEER) athologist Signature Albumin, 27.4 mg/L 12/29/2020 [facility] Urine, Random 4:45 PM [facility] Creatinine, 165 >20 mg/dL 12/29/2020 [facility] Urine, Random 4:45 PM TEXTILE ENGINEER LABOR[facility] Albumin/Creati 17 <30 mg/g 12/29/2020 [facility] nine Ratio, 4:45 PM TEXTILE ENGINEER LABORATORY Urine, Random Specimen Anatomical Collection Method Collection Time Receive d Time (Source) Location / / Volume Laterality Urine Non-blood 12/29/2020 2:51 PM 2:51 Collection / TEXTILE ENGINEER PM TEXTILE ENGINEER Unknown Celina Acosta MD LAB_1 Performing Organization Address City/[facility]/ZIP Code Phon e Number [facility] [address] [place], [place] [phone] (ABNORMAL) ALT (SGPT) (12/29/2020 2:32 PM TEXTILE ENGINEER) athologist [facility] ALT (SGPT) 61 (H) 0 - 55 U/L 12/29/2020 [facility] 4:19 PM TEXTILE ENGINEER LABORATORY Specimen Anatomical Collection Method / Collection Time Recei chantelle Time (Source) Location / Volume Laterality Blood Venipuncture / 12/29/2020 2:32 12/29/2020 2:32 Unknown PM TEXTILE ENGINEER PM TEXTILE ENGINEER Celina Acosta MD LAB_1 Performing Organization Address City/[facility]/ZIP [facility] Phon e Number [facility] [address] [place], [place] [phone] TSH with Free T4 (if TSH Abnormal) (12/29/2020 2:32 PM TEXTILE ENGINEER) athologist Signature TSH, Reflex 2.39 0.30 - 4.50 12/29/2020 [facility] uIU/mL 7:10 PM TEXT[facility]INEER LAB[facility] Specimen Anatomical Collection Method / Collection Time Recei chantelle Time (Source) Location / Volume Laterality Blood Venipuncture / 12/29/2020 2:32 12/29/2020 2:32 Unknown PM TEXTILE ENGINEER PM TEXTILE ENGINEER Narrative [facility] - 12/29/2020 7:10 P M TEXTILE ENGINEER Lab will automatically reflex to Free T4 when TSH results are <0.30 uIU/mL or >4.50 mIU/mL. Celina Acosta MD LAB_1 Performing Organization Address City/[facility] Phon e Number [facility] [address] [place] [address] (ABNORMAL) Hgb A1C (12/29/2020 2:32 PM TEXTILE ENGINEER) [facility] Method Time Signature Hemoglobin A1C 11.5 (H) <=5.6 % 12/30/2020 [facility] 12:24 PM TEXTILE ENGINEER CENTRAL LAB Specimen Anatomical Collection Method / Collection Time Recei chantelle Time (Source) Location / Volume Laterality Blood Venipuncture / 12/29/2020 2:32 12/29/2020 2:32 Unknown PM TEXTILE ENGINEER PM TEXTILE ENGINEER Narrative [facility] - 12/30/2020 12:24 PM TEXTILE ENGINEER For patients not previously diagnosed with diabetes: 5.7-6.4%: Increased risk for diabetes 6.5% and greater: Diagnostic for diabete s For patients diagnosed with diabetes: <8.0%: Goal of therapy for ages 18-75 Clinicians may recommend a higher or low er goal for specific individuals. Celina Acosta MD LAB_1 Performing Organization Address City/[facility] Phon e Number [facility] [address] [address] Vitamin B12 Only (12/29/2020 2:32 PM TEXTILE ENGINEER) athologist Signature Vitamin B12 680 144 - 684 12/29/2020 [facility] pg/mL 7:10 PM TEXTILE ENGINEER LABORATORY Specimen Anatomical Collection Method / Collection Time Recei chantelle Time (Source) Location / Volume Laterality Blood Venipuncture / 12/29/2020 2:32 12/29/2020 2:32 Unknown PM TEXTILE ENGINEER PM TEXTILE ENGINEER Celina Acosta MD LAB_1 Performing Organization Address City/State/ZIP Code Phon e Number [facility] [address] [place] [address] CK, Total (12/29/2020 2:32 PM TEXTILE ENGINEER) P athologist Signature CK, Total 75 29 - 168 12/29/2020 [place] U/L 4:19 PM TEXTILE ENGINEER LABORATORY Specimen Anatomical Collection Method / Collection Time Recei chantelle Time (Source) Location / Volume Laterality Blood Venipuncture / 12/29/2020 2:32 12/29/2020 2:32 Unknown PM TEXTILE ENGINEER PM TEXTILE ENGINEER Celina Acosta MD LAB_1 Performing Organization Address City/[facility]/ZIP Code Phon e Number [facility] [address] [place], [place] [phone] (ABNORMAL) LDL Cholesterol, Direct Measured (12/29/2020 2:32 PM TEXTILE ENGINEER) P athologist Signature LDL, Direct 160 (H) <=130 12/29/2020 [facility] mg/dL 4:19 PM TEXTILE ENGINEER LABORATORY Specimen Anatomical Collection Method / Collection Time Recei chantelle Time (Source) Location / Volume Laterality Blood Venipuncture / 12/29/2020 2:32 12/29/2020 2:32 Unknown PM TEXTILE ENGINEER PM TEXTILE ENGINEER Celina Acosta MD LAB_1 Performing Organization Address City/[facility]/ZIP Code Phon e Number [facility] [address] [place] [phone] (ABNORMAL) Basic Metabolic Panel (12/29/2020 2:32 PM TEXTILE ENGINEER) Analysis Performed At Patho logist Time Signature Sodium 137 136 - 145 12/29/2020 [place] mmol/L 4:19 PM TEXTILE ENGINEER LABORATORY Potassium 3.8 3.5 - 5.1 12/29/2020 [place] mmol/L 4:19 PM TEXTILE ENGINEER LABORATORY Chloride 105 98 - 109 12/29/2020 [place] mmol/L 4:19 PM TEXTILE ENGINEER LABORATORY CO2 24 20 - 29 12/29/2020 [place] mmol/L 4:19 PM TEXTILE ENGINEER LABORATORY Anion Gap 8 7 - 16 12/29/2020 [facility] mmol/L 4:19 PM TEXTILE ENGINEER LABORATORY Calcium 8.9 8.4 - 10.4 12/29/2020 [facility] mg/dL 4:19 PM TEXTILE ENGINEER LABORATORY BUN 11 7 - 26 12/29/2020 [facility] mg/dL 4:19 PM TEXTILE ENGINEER LABORATORY Creatinine 0.60 0.55 - 12/29/2020 [facility] 1.02 mg/dL 4:19 PM TEXTILE ENGINEER LABORATORY GFR, Est If >60 >60 12/29/2020 [facility] mL/min/1.7 4:19 PM TEXTILE ENGINEER LABORATORY [place] 3m2 Glucose 273 (H) 70 - 100 12/29/2020 [facility] mg/dL 4:19 PM TEXTILE ENGINEER LABORATORY Comment: The given reference range is fo r the fasting state. Non-fasting reference range for glucose is 70 - 180 mg/dL. Hours Fasting 2 12/29/2020 4:19 PM TEXTILE ENGINEER [facility] Specimen Anatomical Collection Method / Collection Time Recei chantelle Time (Source) Location / Volume Laterality Blood Venipuncture / 12/29/2020 2:32 12/29/2020 2:32 Unknown PM TEXTILE ENGINEER PM TEXTILE ENGINEER Celina Acosta MD LAB_1 Performing Organization Address City/State/ZIP Code Phon e Number [address] [phone] C-Peptide, Serum or Plasma (12/29/2020 2:32 PM TEXTILE ENGINEER) athologist Signature C-Peptide 2.2 0.8 - 3.5 12/31/2020 [facility] ng/mL 2:38 PM TEXTILE ENGINEER Comment: INTERPRETIVE INFORMATION: C-Peptide, Ser um or Plasma Reference Interval applies to fasting sp ecimens. To convert to nmol/L, multiply by 0.33 Performed By: [facility] [address] [place] [address] Group Supervisor Yard: Yaneli Lopez MD Specimen Anatomical Collection Method / Collection Time Recei chantelle Time (Source) Location / Volume Laterality Blood Venipuncture / 12/29/2020 2:32 12/29/2020 2:32 Unknown PM TEXTILE ENGINEER PM TEXTILE ENGINEER Celina Acosta MD LAB_1 Performing Organization Address City/State/[facility] Phon e Number [facility] [address] [place], [place] [phone] Islet Cell IGG Antibody (12/29/2020 2:32 PM TEXTILE ENGINEER) athologist Signature Islet Cell <1:4 <1:4 12/31/2020 [facility] Antibody 5:20 PM TEXTILE ENGINEER LAB[facility]ATORIES Comment: INTERPRETIVE INFORMATION: Islet Cell Ab, IgG Islet cell antibodies (ICAs) are associa yair with type 1 diabetes (TID), an autoimmune endocrine disorder. ICAs may be present years before the onset of clinical symptoms. T o calculate Juvenile Diabetes Foundation (JDF) units: multipl y the titer x 5 (1:8 ??8 x 5 = 40 JDF Units). This test was developed and its performa nce characteristics determined by [facility]. It has not been cleared or approved by the [place] Food and Drug Adminis tration. This test was performed in a CLIA certified laboratory and is intended for clinical purposes. Performed By: [facility] [address] [place] [address] Group Supervisor Yard: Yaneli Lopez MD Specimen Anatomical Collection Method / Collection Time Recei chantelle Time (Source) Location / Volume Laterality Blood Venipuncture / 12/29/2020 2:32 12/29/2020 2:32 Unknown PM TEXTILE ENGINEER PM TEXTILE ENGINEER Celina Acosta MD LAB_1 Performing Organization Address [facility] Phon e Number [facility] [address] [place], [place] [phone] IA-2 Antibody (12/29/2020 2:32 PM TEXTILE ENGINEER) athologist Signature IA-2 Antibody <5.4 0.0 - 7.4 01/02/2021 [facility] U/mL 11:01 AM TEXTILE ENGINEER LABORATORIES Comment: INTERPRETIVE INFORMATION: Islet Antigen- 2 (IA-2) ?A utoantibody, Serum A value greater than or equal to 7.5 Uni ts/mL is considered positive for IA-2 autoantibodies. This assay is intended for the quantitat tani determination of autoantibodies to Islet Antigen-2 (IA-2) in human serum. Results should be interpreted within the context of clinical symptoms. Performed By: [facility] [address] [place] [address] Group Supervisor Yard: Yaneli Lopez MD Specimen Anatomical Collection Method / Collection Time Recei chantelle Time (Source) Location / Volume Laterality Blood Venipuncture / 12/29/2020 2:32 12/29/2020 2:32 Unknown PM TEXTILE ENGINEER PM TEXTILE ENGINEER Celina Acosta MD LAB_1 Performing Organization Address [facility] e Number [place] [phone] Glutamic Acid Decarboxylase Antibody (12/29/2020 2:32 PM TEXTILE ENGINEER) Patholo gist Method Time Signature GLUTAMIC ACID <5.0 0.0 - 5.0 01/01/2021 [facility] DECARBOXYLASE IU/mL 5:34 PM TEXTILE ENGINEER LABORATORIES ANTIBODY Comment: INTERPRETIVE INFORMATION: ??Glutamic Aci d Decarboxylase Antibody A value greater than 5.0 IU/mL is consid ered positive for Glutamic Acid Decarboxylase Antibody (RACHEL Ab). Th is assay is intended for the semi-quantitative determination of t he RACHEL Ab in human serum. Results should be interpreted within the context of clinical symptoms. Performed By: [facility] [address] [place] [address] Group Supervisor Yard: Yaneli Lopez MD Specimen Anatomical Collection Method / Collection Time Recei chantelle Time (Source) Location / Volume Laterality Blood Venipuncture / 12/29/2020 2:32 12/29/2020 2:32 Unknown PM TEXTILE ENGINEER PM TEXTILE ENGINEER Celina Acosta MD LAB_1 Performing Organization Address [facility] Phon e Number [place] [phone] Insulin Antibodies Panel (12/29/2020 2:32 PM TEXTILE ENGINEER) Analysis Performed At Patho logist Time Signature Insulin <0.4 0.0 - 0.4 01/07/2021 [facility] Antibodies U/mL 12:45 PM TEXTILE ENGINEER LABORATORIES Comment: INTERPRETIVE INFORMATION: Insulin Antibo dy A value greater than 0.4 Kronus Units/mL is considered positive for Insulin Antibody. Kronus units are a rbitrary. Kronus Units = U/mL. This assay is intended for the semi-mode titative determination of antibodies to endogenous insulin or anti bodies to exogenous insulin in human serum. Antibodies to ex ogenous insulin therapies may be detected using this method. The m agnitude of the measured result is not related to disease progres chiquita. Results should be interpreted within the context of clinic al symptoms. Performed By: [facility] [address] [place] [address] Group Supervisor Yard: Yaneli Lopez MD Specimen Anatomical Collection Method / Collection Time Recei chantelle Time (Source) Location / Volume Laterality Blood Venipuncture / 12/29/2020 2:32 12/29/2020 2:32 Unknown PM TEXTILE ENGINEER PM TEXTILE ENGINEER Narrative [facility] - 01/07/2021 12:45 PM TEXTILE ENGINEER Test delayed. Expected completion 01/11/21 . Due to Unexpected bolus of specimens. Celina Acosta MD LAB_1 Performing Organization Address City/[facility] Code Phon e Number [facility] [address] [place], [place] [phone] (ABNORMAL) POCT glycosylated hemoglobin (Hb A1C) (12/29/2020 2:12 PM TEXTILE ENGINEER) Analysis Performed At Patho logist Time Signature Hemoglobin A1C 10.5 (A) 5.6 % POCT (Rapid) Cartridge Lot# [id number] POCT Specimen (Source) Anatomical Collection Method Collection Time Re ceived Time Location / / Volume Laterality Blood 12/29/2020 2:12 PM TEXTILE ENGINEER Celina Acosta MD ET POINT OF CARE TEST ENTER/ EDIT ORDERABLES Performing Organization Address City/[facility]/ZIP Code Phon e Number POCT documented in this encounter Visit Diagnoses Diagnosis Uncontrolled type 2 diabetes mellitus wi th hyperglycemia (HRC) - Primary documented in this encounter
--- OUTSIDE RECORDS SUMMARY | 2022-08-13 09:09 | XMS_ITS | Encounter Summary ---
:1995 Author Organization [facility] Address [address] [place] [address] Care Team Providers Name Role Phone Unavailable Primary Care Provider Unavailable Reason for Visit Reason Comments Referral Patient Calling Back Encounter Details Date Type Department Care Team Description 01/13/2021 Telephone Alyson Needs Pcp, Referral; [facility] Ophthalmology Assignment Calling Back [address] [place] [address] [place], [place] [phone] Social History Tobacco Use Types Packs/Day Years Used Date Smoking Tobacco: Never Smokeless Tobacco: Never Sex Assigned at Date Recorded Not on file documented as of this encounter Nursing Notes Yany Langston - 01/13/2021 1:38 PM CST Made a CEDM check with TS [employer] Emilee Johnson - 01/13/2021 1:17 PM CST Pt calling back [employer] Renetta Linton COT - 01/13/2021 10:19 AM CST LMTCB [employer] Isabela Flaherty - 01/13/2021 10:14 AM CST Patient has referral for eye pain and halos. [employer] RESEARCH documented in this encounter Plan of Treatment Upcoming Encounters Date Type Specialty Care Team Description 09/08/2022 Telemedicine Endocrinology Marsha Acosta ra, MD [address] [facility] Alexandra SHEIKH [address] (Wo rk) documented as of this encounter Visit Diagnoses Not on filedocumented in this encounter
--- OUTSIDE RECORDS SUMMARY | 2022-08-13 09:09 | XMS_ITS | Encounter Summary ---
:1995 Author Organization [facility] Address [address], [place] [address] Care Team Providers Name Role Phone Unavailable Primary Care Provider Unavailable Reason for Visit Reason Comments Appt. Needed Encounter Details Date Type Department Care Team Description 12/30/2020 Telephone [facility] [address] Celina Acosta , Appt. Needed Endocrinology [address] [place] [address] [place] [address] [phone] (Wo rk) Social History Tobacco Use Types Packs/Day Years Used Date Smoking Tobacco: Never Smokeless Tobacco: Never Sex Assigned at Date Recorded Not on file documented as of this encounter Nursing Notes Evangelina Smith - 12/30/2020 12:13 PM CST LVM to schedule 4 week f/u with Dr. Acosta ICAL RESOURCE NURSE documented in this encounter Plan of Treatment Upcoming Encounters Date Type Specialty Care Team Description 09/08/2022 Telemedicine Endocrinology Marsha Acosta ra, [address] [facility] [id number] (Wo rk) documented as of this encounter Visit Diagnoses Not on filedocumented in this encounter
--- OUTSIDE RECORDS SUMMARY | 2022-08-13 09:09 | XMS_ITS | Encounter Summary ---
:1995 Author Organization [facility] Address [address], [place] [address] Care Team Providers Name Role Phone Unavailable Primary Care Provider Unavailable Reason for Referral Consult/Transfer Care (Routine) - New Request Specialty Diagnoses / Procedures Referred By Contact Refer red To Contact Diagnoses Uncontrolled type 2 diabetes mellitus with hyperglycemia (HRC) Obesity, unspecified obesity severity, unspecified obesity type (HRC) Celina Acosta MD [address] [place], [place] [address] Referral ID Status Reason Start Date Expiration Date Visits V isits Requested Authorized [id number] New Request 09/30/2021 12/30/2022 1 1 Scheduling Instructions Your provider has recommended an appoint ment with [facility]. You may call [phone] to schedule yo ur appointment. We suggest you call your health insurance company about your cove rage and benefits for this appointment. [employer] Encounter Details Date Type Department Care Team Description 09/30/2021 Telemedicine [facility] [address] Celina Acosta [facility] ontrolled type 2 diabetes mellitus with hyperglycemia (HRC) (Primary Dx); Endocrinology Akash Iqbal MD Obesity, unspecified obesity severity, u nspecified obesity type [address] [place] [address] [phone] Social History Tobacco Use Types Packs/Day Years [...] on file documented as of this encounter Patient Instructions Patient InstructionsShCelina bucio MD - 09/30/2021 3:00 PM [employer] Switch to NPH. Fasting glucose should be less than 95 Novolog 10 units per meal. Post meal At 1 hour should be less than 140 Learn carb count - closely work with CDE, FARZANA teams to closely follow progress. [employer] documented in this encounter Progress Notes Celina Acosta MD - 09/30/2021 3:00 PM CST ENDOCRINOLOGY VISIT OFFICE VISIT Date of visit: 09/30/2021 REASON FOR VISIT: Type 2 DM DAVE Wadsworth presents today for follow-up on type 2 diabetes mellitus She was diagnosed with type 2 diabetes mellitus in December 2020. Ermelinda gained nearly 20 lbs over the last year or 2 after moving to [place] from [place]. She had polyuria and polydipsia [...] normal, christ and other antibodies were negative. In summer she had an ectopic . INTERVAL HISTORY 11 weeks now. She is using Metformin but causing GI distress. Levemir - injections sites have bruise, bump and itchiness, happens with every injection. BG data no available. Fasting 100-120 Prandial at 1 hour >140 on many occasion by her accounts. ROS otherwise noncontributory to current presentation. I have reviewed PMH / PSH / FH and SH, Medications and Allergies in Epic today. Relevant PMSFSH: MGM with T2DM Diet: discussed spreading the carbs thru out the day. Exercise: encouraged using treadmill. ASSESSMENT Ermelinda Calderon is a 26 y.o. female with: T2DM Diagnosed 12/2020, sub-optimal control without DM complications. First trimester . Weight gain, Obesity BMI 31.4 Elevated LFTs, resolved Barriers to achieving glycemic goals: Possibly higher carb diet - spread thru out the day. Side effects from metformin. : Discussed insulin resistance, safest options for sugar management during . PLAN: Switch to NPH. Fasting glucose should be less than 95 Novolog 10 units per meal. Post meal At 1 hour should be less than 140 Learn carb count - closely work with CDE, FARZANA teams to closely follow progress. Return in about 2 weeks (around 10/14/2021) for Blood sugar review. With Grisel Alcala. Celina Acosta MD Endocrinology Service Test and/or medications prescribed today: Orders Placed This Encounter ??? NOVOLOG FLEXPEN 100 UNIT/ML pen injection ??? insulin NPH, human isophane, (HUMULIN NPH) 100 UNIT/ML injection There are no Patient Instructions on file for this visit. Weight trend Wt Readings from Last 4 Encounters: 01/12/21 192 lb 1.6 oz (87.1 kg) 12/29/20 188 lb 8 oz (85.5 kg) A1c today is No components found for: A1C In House Labs: Lab Results Component Value Date Hemoglobin A1C 11.5 (H) 12/29/2020 Hemoglobin A1C 10.5 (A) 12/29/2020 [employer] documented in this encounter Plan of Treatment Upcoming Encounters Date Type Specialty Care Team Description 09/08/2022 Telemedicine Endocrinology Marsha Acosta ra, MD [address] [place] [id number] (Wo rk) Scheduled Referrals Name Type Priority Associated Diagnoses Order S [facility] Referral Routine Uncontrolled type 2 Or dered: 09/30/2021 Visit diabetes mellitus with hyperglycemia (H RC) Obesity, unspecified obesity severity, unspecified obesity type documented as of this encounter Visit Diagnoses Diagnosis Uncontrolled type 2 diabetes mellitus wi th hyperglycemia (HRC) - Primary Obesity, unspecified obesity severity, u nspecified obesity type (HRC) documented in this encounter
--- OUTSIDE RECORDS SUMMARY | 2022-08-13 09:09 | XMS_ITS | Encounter Summary ---
:1995 Author Organization [facility] Address [address] [address] Care Team Providers Name Role Phone Unavailable Primary Care Provider Unavailable Encounter Details Date Type Department Care Team Description 12/29/2020 Lab Visit [facility] Uncontrolled type 2 diabetes [id number] [facility] [place] [address] ([facility]) [phone] Social History Tobacco Use Types Packs/Day Years Used Date Smoking Tobacco: Never Smokeless Tobacco: Never Sex Assigned at Date Recorded Not on file documented as of this encounter Progress Notes Celina Acosta MD - 12/29/2020 3:50 PM CST Please report to Ms. Calderon that labs [...] medication changes. Celina Acosta MD Endocrinology Service [facility] documented in this encounter Plan of Treatment Upcoming Encounters Date Type Specialty Care Team Description 09/08/2022 Telemedicine Endocrinology Marsha Acosta ra, MD [address] [facility] [address] [address] [place] [address] (Wo rk) documented as of this encounter Procedures Procedure Name Priority Date/Time Associated Diagnosis Comme nts ALBUMIN/CREAT RATIO Routine 12/29/2020 2:51 Uncontrolled type 2 Results for this PM [facility] diabetes mellitus procedure are in with hyperglycemia the resul ts (HRC) section. ISLET CELL IGG Routine 12/29/2020 2:32 Uncontrolled type 2 Res ults for this ANTIBODY PM [facility] diabetes mellitus procedure are in with hyperglycemia the resul ts (HRC) section. INSULIN ANTIBODIES Routine 12/29/2020 2:32 Uncontrolled type 2 Results for this PANEL PM [facility] diabetes mellitus procedure are in with hyperglycemia the resul ts (HRC) section. GLUTAMIC ACID Routine 12/29/2020 2:32 Uncontrolled type 2 Resu lts for this DECARBOXYLASE PM [facility] diabetes mellitus procedure are in ANTIBODY with hyperglycemia the resul ts (HRC) section. C-PEPTIDE, SERUM Routine 12/29/2020 2:32 Uncontrolled type 2 R esults for this PM [facility] diabetes mellitus procedure are in with hyperglycemia the resul ts (HRC) section. IA-2 ANTIBODY Routine 12/29/2020 2:32 Uncontrolled type 2 Resu lts for this PM [facility] diabetes mellitus procedure are in with hyperglycemia the resul ts (HRC) section. LDL CHOLESTEROL, Routine 12/29/2020 2:32 Uncontrolled type 2 R esults for this DIRECT MEASURED PM [facility] diabetes mellitus procedu re are in with hyperglycemia the resul ts (HRC) section. BASIC METABOLIC PANEL Routine 12/29/2020 2:32 Uncontrolled typ e 2 Results for this PM [facility] diabetes mellitus procedure are in with hyperglycemia the resul ts (HRC) section. TSH, SENSITIVE (WITH Routine 12/29/2020 2:32 Uncontrolled type 2 Results for this REFLEX) PM [facility] diabetes mellitus procedure are in with hyperglycemia the resul ts (HRC) section. HGB A1C Routine 12/29/2020 2:32 Uncontrolled type 2 Resul ts for this PM [facility] diabetes mellitus procedure are in with hyperglycemia the resul ts (HRC) section. VITAMIN B12 ONLY Routine 12/29/2020 2:32 Uncontrolled type 2 R esults for this PM [facility] diabetes mellitus procedure are in with hyperglycemia the resul ts (HRC) section. ALT (SGPT) Routine 12/29/2020 2:32 Uncontrolled type 2 Resul ts for this PM [facility] diabetes mellitus procedure are in with hyperglycemia the resul ts (HRC) section. CK, TOTAL Routine 12/29/2020 2:32 Uncontrolled type 2 Resul ts for this PM [facility] diabetes mellitus procedure are in with hyperglycemia the resul ts (HRC) section. documented in this encounter Results Microalbumin/Creatinine Ratio (12/29/2020 2:51 PM [facility]) athologist Signature Albumin, 27.4 mg/L 12/29/2020 [facility] Urine, Random 4:45 PM [facility] Creatinine, 165 >20 mg/dL 12/29/2020 [facility] Urine, Random 4:45 PM [facility] Albumin/Creati 17 <30 mg/g 12/29/2020 [facility] nine Ratio, 4:45 PM [facility] Urine, Random Specimen Anatomical Collection Method Collection Time Receive d Time (Source) Location / / Volume Laterality Urine Non-blood 12/29/2020 2:51 PM 2:51 Collection / [facility] PM [facility] Unknown Celina Acosta MD LAB_1 Performing Organization Address [place]/ZIP Code [facility] [address] [place], [place] [phone] (ABNORMAL) ALT (SGPT) (12/29/2020 2:32 PM [facility]) athologist Signature ALT (SGPT) 61 (H) 0 - 55 U/L 12/29/2020 [facility] 4:19 PM [facility] Specimen Anatomical Collection Method / Collection Time Recei chantelle Time (Source) Location / Volume Laterality Blood Venipuncture / 12/29/2020 2:32 12/29/2020 2:32 Unknown PM [facility] PM [facility] Celina Acosta MD LAB_1 Performing Organization Address [facility]/ZIP [facility] e [facility]ATORY [address] [place], [place] [phone] TSH with Free T4 (if TSH Abnormal) (12/29/2020 2:32 PM [facility]) athologist Signature TSH, Reflex 2.39 0.30 - 4.50 12/29/2020 [facility] uIU/mL 7:10 PM [facility] Specimen Anatomical Collection Method / Collection Time Recei chantelle Time (Source) Location / Volume Laterality Blood Venipuncture / 12/29/2020 2:32 12/29/2020 2:32 Unknown PM [facility] PM [facility] Narrative [facility] - 12/29/2020 7:10 P M [facility] Lab will automatically reflex to Free T4 when TSH results are <0.30 uIU/mL or >4.50 mIU/mL. Celina Acosta MD LAB_1 Performing Organization Address [place]/ZIP Code Phon e Number [facility] [address] [place] [address] (ABNORMAL) Hgb A1C (12/29/2020 2:32 PM R[facility] TI[facility]) [facility] gist Method Time Signature Hemoglobin A1C 11.5 (H) <=5.6 % 12/30/2020 [facility] 12:24 PM [facility] Specimen Anatomical Collection Method / Collection Time Recei chantelle Time (Source) Location / Volume Laterality Blood Venipuncture / 12/29/2020 2:32 12/29/2020 2:32 Unknown PM [facility] PM [facility] Narrative [facility] - 12/30/2020 12:24 PM [facility] For patients not previously diagnosed with diabetes: 5.7-6.4%: Increased risk for diabetes 6.5% and greater: Diagnostic for diabete s For patients diagnosed with diabetes: <8.0%: Goal of therapy for ages 18-75 Clinicians may recommend a higher or low er goal for specific individuals. Celina Acosta MD LAB_1 Performing Organization Address [place] Code Phon e Number [facility] [address] [address] Vitamin B12 Only (12/29/2020 2:32 PM [facility]) athologist Signature Vitamin B12 680 213 - 816 12/29/2020 [facility] pg/mL 7:10 PM [facility] Specimen Anatomical Collection Method / Collection Time Recei chantelle Time (Source) Location / Volume Laterality Blood Venipuncture / 12/29/2020 2:32 12/29/2020 2:32 Unknown PM [facility] PM [facility] Celina Acosta MD LAB_1 Performing Organization Address [place] Phon e Number [facility] [address] [place] [address] CK, Total (12/29/2020 2:32 PM R[facility] TILE [facility]) athologist Signature CK, Total 75 29 - 168 12/29/2020 [facility] U/L 4:19 PM [facility] Specimen Anatomical Collection Method / Collection Time Recei chantelle Time (Source) Location / Volume Laterality Blood Venipuncture / 12/29/2020 2:32 12/29/2020 2:32 Unknown PM [facility] PM [facility] Celina Acosta MD LAB_1 Performing Organization Address [place]/ZIP Code Phon e Number [facility] [address] [place], [place] [phone] (ABNORMAL) LDL Cholesterol, Direct Measured (12/29/2020 2:32 PM [facility]) athologist Signature LDL, Direct 160 (H) <=130 12/29/2020 [facility] mg/dL 4:19 PM [facility] Specimen Anatomical Collection Method / Collection Time Recei chantelle Time (Source) Location / Volume Laterality Blood Venipuncture / 12/29/2020 2:32 12/29/2020 2:32 Unknown PM [facility] PM [facility] Celina Acosta MD LAB_1 Performing Organization Address [place]/ZIP Code Phon e Number [facility] [address] [place], [place] [phone] (ABNORMAL) Basic Metabolic Panel (12/29/2020 2:32 PM ROOFING TILE [facility]) Analysis Performed At Patho logist Time [facility] Sodium 137 136 - 145 12/29/2020 [facility] mmol/L 4:19 PM [facility] Potassium 3.8 3.5 - 5.1 12/29/2020 [facility] mmol/L 4:19 PM [facility] Chloride 105 98 - 109 12/29/2020 [facility] mmol/L 4:19 PM [facility] CO2 24 20 - 29 12/29/2020 [facility] mmol/L 4:19 PM [facility] Anion Gap 8 7 - 16 12/29/2020 [facility] mmol/L 4:19 PM [facility] Calcium 8.9 8.4 - 10.4 12/29/2020 [facility] mg/dL 4:19 PM [facility] BUN 11 7 - 26 12/29/2020 [facility] mg/dL 4:19 PM [facility] Creatinine 0.60 0.55 - 12/29/2020 [facility] 1.02 mg/dL 4:19 PM [facility] GFR, Est If >60 >60 12/29/2020 [facility] mL/min/1.7 4:19 PM [facility] Hungarian 3m2 Glucose 273 (H) 70 - 100 12/29/2020 [facility] mg/dL 4:19 PM [facility] Comment: The given reference range is fo r the fasting state. Non-fasting reference range for glucose is 70 - 180 mg/dL. Hours Fasting 2 12/29/2020 4:19 PM [facility] Specimen Anatomical Collection Method / Collection Time Recei chantelle Time (Source) Location / Volume Laterality Blood Venipuncture / 12/29/2020 2:32 12/29/2020 2:32 Unknown PM [facility] PM [facility] Celina Acosta MD LAB_1 Performing Organization Address City/[facility]/ZIP Code Phon e Number [facility] [address] [place] [phone] C-Peptide, Serum or Plasma (12/29/2020 2:32 PM ROO[facility] TILE [facility]) [facility] C-Peptide 2.2 0.8 - 3.5 12/31/2020 [facility] ng/mL 2:38 PM [facility] Comment: INTERPRETIVE INFORMATION: C-Peptide, Ser um or Plasma Reference Interval applies to fasting sp ecimens. To convert to nmol/L, multiply by 0.33 Performed By: [facility] [address] [place] [id number] Handbag Designer: Yaneli Lopez MD Specimen Anatomical Collection Method / Collection Time Recei chantelle Time (Source) Location / Volume Laterality Blood Venipuncture / 12/29/2020 2:32 12/29/2020 2:32 Unknown PM [facility] PM [facility] Celina Acosta MD LAB_1 Performing Organization Address [place]/ZIP [facility] Phon e Number [facility] [employer] [address] [phone] Islet Cell IGG Antibody (12/29/2020 2:32 PM R[facility] TILE [facility]) P athologist Signature Islet Cell <1:4 <1:4 12/31/2020 [facility] Antibody 5:20 PM [facility] Comment: INTERPRETIVE INFORMATION: Islet Cell Ab, [...] and its performa nce characteristics determined by [facility]. It has not been cleared or approved by the [place] Food and Drug Adminis tration. This test was performed in a CLIA certified laboratory and is intended for clinical purposes. Performed By: [facility] [address] [place] [id number] Handbag Designer: Yaneli Lopez MD Specimen Anatomical Collection Method / Collection Time Recei chantelle Time (Source) Location / Volume Laterality Blood Venipuncture / 12/29/2020 2:32 12/29/2020 2:32 Unknown PM [facility] TILE [facility] PM [facility] Cleina Acosta MD LAB_1 Performing Organization Address City/State/ZIP Code [facility]on [facility] [address] [place] [phone] IA-2 Antibody (12/29/2020 2:32 PM ROOFING TILE SORTER) athologist Signature IA-2 Antibody <5.4 0.0 - 7.4 01/02/2021 [facility] U/mL 11:01 AM [facility] Comment: INTERPRETIVE INFORMATION: Islet Antigen- 2 (IA-2) ?A utoantibody, Serum A value greater than or equal to 7.5 Uni ts/mL is considered positive for IA-2 autoantibodies. This assay is intended for the quantitat tani determination of autoantibodies to Islet Antigen-2 (IA-2) in human serum. Results should be interpreted within the context of clinical symptoms. Performed By: [facility] [address] [place] [id number] Handbag Designer: Yaneli Lopez MD Specimen Anatomical Collection Method / Collection Time Recei chantelle Time (Source) Location / Volume Laterality Blood Venipuncture / 12/29/2020 2:32 12/29/2020 2:32 Unknown PM [facility] PM [facility] Celina Acosta MD LAB_1 Performing Organization Address [place] Phon e Number [facility] [address] [place] [address] [phone] Glutamic Acid Decarboxylase Antibody (12/29/2020 2:32 PM R[facility]) Patholo gist Method Time Signature GLUTAMIC ACID <5.0 0.0 - 5.0 01/01/2021 [facility] DECARBOXYLASE IU/mL 5:34 PM [facility] ANTIBODY Comment: INTERPRETIVE INFORMATION: ??Glutamic Aci d Decarboxylase Antibody A value greater than 5.0 IU/mL is consid ered positive for Glutamic Acid Decarboxylase Antibody (RACHEL Ab). Th is assay is intended for the semi-quantitative determination of t he RACHEL Ab in human serum. Results should be interpreted within the context of clinical symptoms. Performed By: [facility] [address] [place] [id number] Handbag Designer: Yaneli Lopez MD Specimen Anatomical Collection Method / Collection Time Recei chantelle Time (Source) Location / Volume Laterality Blood Venipuncture / 12/29/2020 2:32 12/29/2020 2:32 Unknown PM [facility] PM [facility] Celina Acosta MD LAB_1 Performing Organization Address [place] Phon e Number [facility] [address] [place] [phone] Insulin Antibodies Panel (12/29/2020 2:32 PM ROO[facility]ING TI[facility]) Analysis Performed At Patho logist Time Signature Insulin <0.4 0.0 - 0.4 01/07/2021 [facility] Antibodies U/mL 12:45 PM [facility] Comment: INTERPRETIVE INFORMATION: Insulin Antibo dy [...] context of clinic al symptoms. Performed By: [facility] [address] [place] [address] Handbag Designer: Yaneli Lopez MD Specimen Anatomical Collection Method / Collection Time Recei chantelle Time (Source) Location / Volume Laterality Blood Venipuncture / 12/29/2020 2:32 12/29/2020 2:32 Unknown PM [facility] PM [facility] Narrative [facility] - 01/07/2021 12:45 PM [facility] Test delayed. Expected completion 01/11/21 . Due to Unexpected bolus of specimens. Celina Acosta MD LAB_1 Performing Organization Address City/State/ZIP Code Phon e Number [facility] [address] [place] [phone] documented in this encounter Visit Diagnoses Diagnosis Uncontrolled type 2 diabetes mellitus wi th hyperglycemia (HRC) documented in this encounter
--- OUTSIDE RECORDS SUMMARY | 2022-08-13 09:09 | XMS_ITS | Clinical Summary ---
:1995 Author Organization [employer] [facility] [place] [address] Care Team Providers Name Role Phone Wagner Kaye MD Primary Care Provider [phone] Allergies Active Allergy Reactions Severity Noted Date Comments Norethindrone *Unknown Unknown 03/02/2021 Medications Medication Sig Dispensed Refills Start Date End Date Status blood sugar diagnostic TEST 3 TIMES 0 12/19/2020 Active (Accu-Chek Guide test DAILY BEFORE strips) strip MEALS. blood-glucose meter USE TO TEST 3 0 12/19/2020 Active TIMES DAILY BEFORE MEALS. ibuprofen (Motrin IB) Take 1-3 Tablets 100 Tablet 0 03/01/2022 Active 200 mg (200-600 mg) by tabletIndications: S/P mouth every 6 section hours if needed (for uterine cramping). Take with food. Breast Pump Electric breast 1 Each 0 03/10/2022 A ctive PurchaseIndications: pump for home use Lactating mother for breast feeding at 39 weeks . FELIZ 04/27/22 Accu-Chek Softclix USE TO TEST BLOOD 0 06/25/2022 Active Lancets GLUCOSE 4-6 TIMES DAILY. UltiCare Pen Needle 31 use to inject 4 0 02/04/2022 Active gauge x 1/4 times daily drospirenone-ethinyl Take 1 Tablet by 84 Tablet 4 07/08/2022 Active estradioL (ERMELINDA) mouth once daily. 3-0.03 mg tabletIndications: state, Encounter for initial prescription of contraceptive pills Hospital, Clinic, or Ordered Dose Route Frequency Start Date End D ate Status Other Facility Administered Medication medroxyPROGESTERone 150 mg IM Q 3 MONTHS (12 08/12/202209/09 Active acetate (contraceptive) WEEKS) 3 (DEPO-PROVERA) injection 150 mgIndications: Encounter for contraceptive management, unspecified type Active Problems Problem Noted Date Heartburn during in third trimester 02/27/20 22 Preeclampsia, third trimester 02/17/2022 History of delivery, currently in thi rd trimester 01/14/2022 Insulin dependent type 2 diabetes mellitus 12/17/2021 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, antepartum 12/17/2021 Hx of preeclampsia, prior , currently pregnan t, third trimester 11/17/2021 History of delivery, currently 11/17 Overview: Normal appearing FUNDAL placenta in curr ent MPP Level II (12/17/21) 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 Abnormal position of kidney 11/17/2021 Overview: Left kidney located in pelvis Positive RPR test 11/17/2021 Overview: Reported from [facility] from l abs collected on 09/04/21, negative treponema 09/04/21. Obesity, unspecified obesity severity, unspecified obe sity type 05/13/2021 Mixed hyperlipidemia 03/03/2021 Hepatic steatosis 12/20/2020 Overview: per US from [facility] Diabetes mellitus affecting in third trimest er Resolved Problems Problem Noted Date Resolved Date Community acquired pneumonia 02/17/2022 02/23/2022 Elevated troponin 02/17/2022 02/20/2022 Wheezing 02/16/2022 02/23/2022 Subchorionic hemorrhage 11/20/2021 01/14/2022 Overview: In right uterine horn, Noted in ED on . Gestational sac noted in left horn at this time. Vaginal bleeding in , first trimester 09/29/2021 01/14/2022 Overview: Small amount of hemorrhage noted on US, ED visit, 09/29/21 Encounters Date Type Specialty Care Team Description 08/10/2022 Telephone Josh rAdon MD Questio ns 07/15/2022 Telephone Josh Ardon MD Results 07/08/2022 Office Visit Josh Ardon MD Physica l (Pt never had PP visit. DOD 02/26 ) 07/08/2022 Travel from Last 3 Months Immunizations Name Administration Dates Next Due HPV 9 (Gardasil 9) 12/18/2020, 05/13/2020, 10/22/2019 Hepatitis B (Adult) 07/08/2022 Influenza RIV4 (Age 18+ Years) PRESERV 12/18/2020 FREE Influenza, IIV4 10/14/2021, 10/22/2019 Tdap 02/25/2022 Family History Medical History Relation Name Comments defects Daughter Congenital heart disease Daughter No Known Problems Father No Known Problems Half-Brother 1 No Known Problems Half-Brother 2 No Known Problems Half-Brother 3 No Known Problems Half-Brother 4 No Known Problems Half-Sister 1 No Known Problems Half-Sister 2 No Known Problems Half-Sister 3 No Known Problems Half-Sister 4 Liver disease Maternal Grandfather Diabetes Maternal Grandmother Heart Disease Maternal Grandmother Hypertension Maternal Grandmother Hypertension Mother No Known Problems Paternal Grandfather No Known Problems Paternal Grandmother Relation Name Status Comments Daughter Alive Hole in heart and Dandy-Walker syndrome with some fluid on t he brain otherwise doing well Father Half-Brother 1 Half-Brother 2 Alive Half-Brother 3 Alive Half-Brother 4 Alive Half-Sister 1 Alive Half-Sister 2 Alive Half-Sister 3 Alive Half-Sister 4 Alive Maternal Grandfather Maternal Grandmother Alive Mother Alive Paternal Grandfather Paternal Grandmother Sister Alive Social History Tobacco Use Types Packs/Day Years Used Date Never Smoker Smokeless Tobacco: Never Used Alcohol Use Standard Drinks/Week Comments Never 0 (1 standard drink = 0.6 oz pure alcoho l) Alcohol Habits Answer Date Recorded How often do you have a drink containing alcohol? Never 03/02/2021 How many drinks containing alcohol do you have on a typical Not asked day when you are drinking? How often do you have six or more drinks on one occasion? No t asked Comment: Not asked Sex Assigned at Date Recorded Female 11/14/2021 12:29 AM PROMOTIONS SPECIALIST Obstetrics History Para Term AB IAB SAB Ectopic Multiple Living Live Births 4 2 0 2 2 0 1 1 0 2 2 Date Outcome GA Total Labor/2nd/3rd Weight Sex Delivery Anes PTL Rosalia A 1 A5 Name Clin Labor 01/22 31w 0.99 kg F Arabella Silvia 0d (2 lb 3 ng oz) Complications: Preeclampsia Delivery Location: Hospital ([facility] [place]) Comments: section for agnes ech presentation at 31 weeks after diagnosis of IUGR and preeclampsia 2019 SAB Comments: Didn't even know I was no complications 05/2021 Ectopic 12w0d Comments: Declined surgery, no tub al rupture 02/26/2022 31w3d 0h 0h F General Living 8 8 [facility], [place], 01m 01m ERMELINDA Garcia MD Complications: None Delivery Location: Hospital ([address] L&D TRIAGE) Last Filed Vital Signs Vital Sign Reading Time Taken Comments Blood Pressure 116/70 07/08/2022 10:07 AM CDT Pulse 84 03/05/2022 8:45 PM CDT Temperature 36.8 ??C (98.3 ??F) 03/05/2022 6:45 PM CDT Respiratory Rate 18 03/05/2022 6:45 PM CDT Oxygen Saturation 99% 03/05/2022 6:45 PM CDT Inhaled Oxygen Concentration - - Weight 88.9 kg (196 lb) 07/08/2022 10:07 AM CDT Height 165.1 cm (5' 5) 07/08/2022 10:07 AM CDT Body Mass Index 32.62 07/08/2022 10:07 AM CDT Plan of Treatment Health Maintenance Due Date Last Done Comments Pneumococcal series for age 19-64 (1 1999 - PCV) COVID-19 vaccine series (3 - Booster 10/30/2021 09/04/2021, 07/17/2021 for Moderna series) Influenza for age 9-49 07/08/2022 10/14/2021, 12/18/2020, 10/22/2019 Hepatitis B series for Diabetes (2 of 08/05/2022 07/08/2022 3 - Risk 3-dose series) BMI (ht and wt on same day) for age 0907/08/2023 07/08/2022, 03/02/2021 18+ Depression screening for age 12+ 07/08/2023 07/08/2022, 09/2022 Pap test for age 21-65 07/08/2025 07/08/2022, 07/08/2022, 10/22/2019 Tetanus booster 02/26/2032 02/25/2022 Tdap Completed 02/25/2022 Hepatitis C screening for age 18-79 Completed 07/08/2022 Procedures Procedure Name Priority Date/Time Associated Diagnosis Comme nts LUTEINIZING HORMONE Routine 07/08/2022 11:23 Irregular menses Results for this AM CDT procedure are i n the results section. FSH Routine 07/08/2022 11:23 Irregular menses Results for this AM CDT procedure are i n the results section. ANTI HCV Routine 07/08/2022 11:23 Encounter for HCV Result s for this AM CDT screening test for procedure are in low risk patient the results section. CBC W PLT NO DIFF Routine 07/08/2022 11:23 state Re sults for this AM CDT procedure are i n the results section. HEMOGLOBIN A1C Routine 07/08/2022 11:23 Screening for Results for this SCREENING AM CDT diabetes mellitus procedure are in (DM) the results section. BASIC METABOLIC Routine 07/08/2022 11:23 Generalized edema Res ults for this PANEL AM CDT procedure are i n the results section. T4,FREE Routine 07/08/2022 11:23 Weight gain Results for this AM CDT Generalized edema procedure are in the results section. TSH Routine 07/08/2022 11:23 Weight gain Results for this AM CDT Generalized edema procedure are in the results section. SILO WORKER THIN PREP PAP Routine 07/08/2022 10:40 Screening for Resul ts for this SCREEN IMAGED AM CDT malignant neoplasm procedur e are in of cervix the results section. HPV THIN PREP Routine 07/08/2022 10:40 Screening for Results f or this AM CDT malignant neoplasm procedure are in of cervix the results section. from Last 3 Months Results (ABNORMAL) HEMOGLOBIN A1C SCREENING (07/08/2022 11:23 AM CDT) Analysis Performed At Patho logist Time Signature HEMOGLOBIN A1C 6.9 (H) <=6.4 % 07/09/2022 [facility] SCREENING 11:21 AM CDT LABORATORY-EMMY TRAL LABORATORY Specimen Anatomical Collection Method / Collection Time Recei chantelle Time (Source) Location / Volume Laterality Blood BLOOD SPECIMEN / Venipuncture / 07/08/2022 11:23 07/08 Unknown Unknown AM CDT 11:23 AM CDT Narrative [facility] LABORATORY-CENTRAL LABORAT ORY - 07/09/2022 11:21 AM CDT ? (<5.7%) ?Normal ? (5.7% to 6.4%) ? Indicates pr ediabetes ? (>=6.5%) ? Confirms diabetes Falsely low levels may be seen with: Recent Transfusion, Recent Significant B lood Loss, Hemolytic Diseases, or Falsely elevated levels may be seen with : Untreated Anemias, Splenectomy Josh Ardon MD CHEMISTRY Performing Organization Address City/State/ZIP Code Phon e Number [facility] [address] [place] [address] LABORATORY-CENTRAL 2000 LABORATORY TSH (07/08/2022 11:23 AM CDT) P athologist Signature TSH 1.90 0.35 - 4.94 07/09/2022 [facility] [employer] uIU/mL 1:01 AM CDT LABORATORY-CENTR AL LABORATORY Specimen Anatomical Collection Method / Collection Time Recei chantelle Time (Source) Location / Volume Laterality Blood BLOOD SPECIMEN / Venipuncture / 07/08/2022 11:23 07/08 Unknown Unknown AM CDT 11:23 AM CDT Narrative [facility] LABORATORY-CENTRAL LABORAT ORY - 07/09/2022 1:01 AM CDT In Adults, TSH values between 5.00 and 10.00 uIU/ml do not necessarily indicate the presence of Hyp othyroidism. Correlation with clinical findings such as presence of goiter and/or Thyroperoxidase (TPO) Antibody ma y be helpful. For more information please refer to CANDACE 20 ; 291: 228-238. Josh Ardon MD CHEMISTRY Performing Organization Address [facility] Phon e Number [facility] [address] [place] [address] [place] [address] LABORATORY-CENTRAL 2000 LABORATORY ANTI HCV (07/08/2022 11:23 AM CDT) [facility] gist Method Time Signature HEPATITIS C Non-Reacti Non-Reacti 07/09/2022 [facility] ANTIBODY ve ve 1:08 AM CDT LABORATORY-EMMY TRAL LABORATORY Comment: Antibodies to HCV not detected; does not exclude the possibility of exposure to HCV. Specimen Anatomical Collection Method / Collection Time Recei chantelle Time (Source) Location / Volume Laterality Blood BLOOD SPECIMEN / Venipuncture / 07/08/2022 11:23 07/08 Unknown Unknown AM CDT 11:23 AM CDT Josh Ardon MD SEND OUTS Performing Organization Address [facility] Phon e Number [facility] [address] [place] [address] [place] [address] LABORATORY-CENTRAL 1999 LABORATORY CBC W PLT NO DIFF (07/08/2022 11:23 AM CDT) athologist Signature WHITE BLOOD 5.5 4.5 - 11.0 07/08/2022 [facility] COUNT thou/cu mm 11:[address] [facility] RED BLOOD COUNT 4.93 4.00 - 07/08/2022 [facility] 5.20 11:28 AM CDT [facility] mil/cu mm MEDICAL CLINIC HEMOGLOBIN 13.8 12.0 - 07/08/2022 [facility] 16.0 g/dL 11:[address] [facility] HEMATOCRIT 42.5 33.0 - 07/08/2022 [facility] 51.0 % 11:[address] [facility] MCV 86 80 - 100 07/08/2022 [facility] fL 11:[address] [facility] MCH 28.0 26.0 - 07/08/2022 [facility] 34.0 pg 11:[address] [facility] MCHC 32.5 32.0 - 07/08/2022 [facility] 36.0 g/dL 11:[address] [facility] RDW 13.2 11.5 - 07/08/2022 [facility] 15.5 % 11:[address] [facility] PLATELET COUNT 362 140 - 440 07/08/2022 [facility] thou/cu mm 11:[address] [facility] MPV 9.1 6.5 - 11.0 07/08/2022 [facility] fL 11:[address] [facility] NRBC 0.0 % 07/08/2022 [facility] 11:[address] [facility] ABS NRBC 0.0 thou /cu 07/08/2022 [facility] mm 11:[address] [facility] Specimen Anatomical Collection Method / Collection Time Recei chantelle Time (Source) Location / Volume Laterality Blood BLOOD SPECIMEN / Venipuncture / 07/08/2022 11:23 07/08 Unknown Unknown AM CDT 11:23 AM CDT Josh Ardon MD HEMATOLOGY Performing Organization Address City/State/ZIP Code [facility] e Number [facility] [address] [place], [place] [address] MEDICAL CLINIC LUTEINIZING HORMONE (07/08/2022 11:23 AM CDT) P athologist Signature LUTEINIZING 5.4 mIU/mL 07/09/2022 [facility] HORMONE 6:05 AM CDT LABORATORY-EMMY TRAL LABORATORY Specimen Anatomical Collection Method / Collection Time Recei chantelle Time (Source) Location / Volume Laterality Blood BLOOD SPECIMEN / Venipuncture / 07/08/2022 11:23 07/08 Unknown Unknown AM CDT 11:23 AM CDT Narrative [facility] LABORATORY-CENTRAL LABORAT ORY - 07/09/2022 6:05 AM CDT ? Female: ??Follicular ? (2.4-6.6) ?Ovulatory Peak ? (9.1-74.2) ?Luteal ? (0.9-9.3) ?Post Menopausal ?(10.4-64.6) ? Male: ? (1.1-8.7) ?? Josh Ardon MD CHEMISTRY Performing Organization Address City/State/ZIP Code Phon e Number [facility] [address] [place] [address] LABORATORY-CENTRAL 2000 LABORATORY T4,FREE (07/08/2022 11:23 AM CDT) P athologist Signature T4,FREE 0.90 0.70 - 1.80 07/09/2022 [facility] ng/dL 1:01 AM CDT LABORATORY-CENTR AL LABORATORY Specimen Anatomical Collection Method / Collection Time Recei chantelle Time (Source) Location / Volume Laterality Blood BLOOD SPECIMEN / Venipuncture / 07/08/2022 11:23 07/08 Unknown Unknown AM CDT 11:23 AM CDT Josh Ardon MD CHEMISTRY Performing Organization Address City/State/ZIP Code Phon e Number [facility] [address] [place] [address] LABORATORY-CENTRAL 2000 LABORATORY FSH (07/08/2022 11:23 AM CDT) P athologist Signature FSH 9.1 mIU/mL 07/09/2022 [facility] 6:07 AM CDT LABORATORY-CENTR AL LABORATORY Specimen Anatomical Collection Method / Collection Time Recei chantelle Time (Source) Location / Volume Laterality Blood BLOOD SPECIMEN / Venipuncture / 07/08/2022 11:23 07/08 Unknown Unknown AM CDT 11:23 AM CDT Narrative [facility] LABORATORY-CENTRAL LABORAT ORY - 07/09/2022 6:07 AM CDT ? Female: ??Follicular ? (3.0-8.1) ?Ovulatory Peak ? (2.6-16.7) ?Luteal ? (1.4-5.5) ?Post Menopausal ?(26.7-133.4) ? Male: ? (1.0-12.0) Josh Ardon MD CHEMISTRY Performing Organization Address City/State/ZIP Code Phon e Number [facility] [address] [place] [address] LABORATORY-CENTRAL 2000 LABORATORY (ABNORMAL) BASIC METABOLIC PANEL (07/08/2022 11:23 AM CDT) Analysis Performed At Patho logist Time Signature SODIUM 138 135 - 145 07/09/2022 [facility] mmol/L 1:05 AM CDT LABORATORY-EMMY TRAL LABORATORY POTASSIUM 4.4 3.5 - 5.0 07/09/2022 [facility] mmol/L 1:05 AM CDT LABORATORY-EMMY TRAL LABORATORY CHLORIDE 104 98 - 110 07/09/2022 [facility] mmol/L 1:05 AM CDT LABORATORY-EMMY TRAL LABORATORY CO2,TOTAL 23 21 - 31 07/09/2022 [facility] mmol/L 1:05 AM CDT LABORATORY-EMMY TRAL LABORATORY ANION GAP 11 5 - 18 07/09/2022 [facility] 1:05 AM CDT LABORATORY-EMMY TRAL LABORATORY GLUCOSE 164 (H) 65 - 100 07/09/2022 [facility] mg/dL 1:05 AM CDT LABORATORY-EMMY TRAL LABORATORY CALCIUM 9.1 8.5 - 10.5 07/09/2022 [facility] mg/dL 1:05 AM CDT LABORATORY-EMMY TRAL LABORATORY BUN 11 8 - 25 07/09/2022 [facility] mg/dL 1:05 AM CDT LABORATORY-EMMY TRAL LABORATORY CREATININE 0.77 0.57 - 07/09/2022 [facility] 1.11 mg/dL 1:05 AM CDT LABORATORY-EMMY TRAL LABORATORY BUN/CREAT RATIO 14 10 - 20 07/09/2022 [facility] 1:05 AM CDT LABORATORY-EMMY TRAL LABORATORY eGFR >90 >90 07/09/2022 [facility] mL/min/1.7 1:05 AM CDT LABORATORY-EMMY 3m2 TRAL LABORATORY Comment: As of 2022, eGFR is calcu lated by the CKD-EPI creatinine equation without race adjustment. eGFR can be inf luenced by muscle mass, exercise, and diet. The reported eGFR is an estimation only and is only applicable if the renal function is stable. Specimen Anatomical Collection Method / Collection Time Recei chantelle Time (Source) Location / Volume Laterality Blood BLOOD SPECIMEN / Venipuncture / 07/08/2022 11:23 07/08 Unknown Unknown AM CDT 11:23 AM CDT Josh Ardon MD CHEMISTRY Performing Organization Address City/State/ZIP Code Phon e Number [facility] [address] [place] [address] LABORATORY-CENTRAL 2000 LABORATORY SILO WORKER THIN PREP PAP SCREEN IMAGED (07/08/2022 10:40 AM CDT) Component Value Ref Test Analysis Performed At [facility] gist Range Method Time Signature Case Report Gynecologic Cytology Report ? Case: [id number] ? 07/20/2022 [facility] Authorizing Provider: ??Josh Ardon MD ? Collected: ? 07/08/2022 1040 ? 3:12 PM HEALTH Ordering Location: ? [facility] Received: ?07/08/2022 1235 ? CDT LABOR ATORY-C ? Clinic ? ENTRAL First Screen: ? [facility] ? LABORATORY Specimen: ?SILO WORKER ThinPrep Vial Screening, Cervical ? INTERPRETATION NEGATIVE FOR (none) 07/20/2022 [facility] E lectronically /RESULT INTRAEPITHELIAL 3:12 PM HEALTH sign ed by LESION OR CDT LABORATORY-C [facility] on MALIGNANCY (NIL) ENTRAL 07/08 at LABORATORY 3:12 PM SPECIMEN Satisfactory for evaluation 07/20/2022 [facility] No endocervical component seen 3:12 PM HEALTH CDT LABORATORY-C ENTRAL LABORATORY HPV REQUEST HPV and PAP 07/20/2022 [facility] 3:12 PM HEALTH CDT LABORATORY-C ENTRAL LABORATORY Date of LMP 06/28/2022 07/20/2022 [facility] 3:12 PM HEALTH CDT LABORATORY-C ENTRAL LABORATORY Last Pap Date 10/22/19 07/20/2022 [facility] 3:12 PM HEALTH CDT LABORATORY-C ENTRAL LABORATORY Last Pap NIL 07/20/2022 [facility] Result 3:12 PM HEALTH CDT LABORATORY-C ENTRAL LABORATORY Abnormal Pap No 07/20/2022 [facility] or [place] Bx in 3:12 PM HEALTH last 5 years CDT LABORATORY-C ENTRAL LABORATORY Menstrual Regular Periods 07/20/2022 [facility] Status 3:12 PM HEALTH CDT LABORATORY-C ENTRAL LABORATORY [place] Bx Done No 07/20/2022 [facility] 3:12 PM HEALTH CDT LABORATORY-C ENTRAL LABORATORY Additional None given 07/20/2022 [facility] 3:12 PM [facility] CDT LABORATORY-C ENTRAL LABORATORY Comment: Cytology is screened at [facility] - [address], [place] [address] and [facility] - [address] [place] [address], [place] [address] and [facility] - [address] [place] [address] Interpreted at [facility], Central Laboratory - [address], [place] [address] Automated Review Successful 07/20/2022 3:12 PM CDT [facility] LABORATORY-CENTRAL L ABORATORY Comment: Specimen processed successfully by automated irrigator sprinkling system device, ThinPrep Imaging System, [employer] ANCILLARY TESTING HPV Ordered, 07/20/2022 3:12 PM [facility] SILO WORKER Please see CDT LABORATORY-CENTRAL separate report LABORATORY Note The pap test is a 07/20/2022 3:12 PM [facility] screening CDT LABORATORY-CENTRAL technique, not a LABORATORY diagnostic procedure. It is used primarily to screen for squamous cancers and precursor lesions. Published studies have shown that it is subject to both false negative and false positive results. The pap test should not be used as the sole means to diagnose or exclude pre-malignant and malignant lesions. Specimen Anatomical Collection Method Collection Time Receive d Time (Source) Location / / Volume Laterality Other (Cervical) Non-Blood / 07/08/2022 10:40 022 Unknown AM CDT 12:35 PM CDT Josh Ardon MD PATHOLOGY/CYTOLOGY Performing Organization Address City/State/ZIP Code Phon e Number [facility] [address] [place] [address] LABORATORY-CENTRAL 2000 LABORATORY HPV HIGH RISK (07/08/2022 10:40 AM CDT) Analysis Performed At Patho logist Time Signature TYPE 16 Negative Negative 07/13/2022 [facility] 2:34 PM CDT LABORATORY-EMMY TRAL LABORATORY TYPE 18 Negative Negative 07/13/2022 [facility] 2:34 PM CDT LABORATORY-EMMY TRAL LABORATORY OTHER HIGH Negative Negative 07/13/2022 [facility] RISK TYPES 2:34 PM CDT LABORATORY-EMMY TRAL LABORATORY Specimen Anatomical Collection Method Collection Time Receive d Time (Source) Location / / Volume Laterality Other (Cervical) Non-Blood / 07/08/2022 10:40 022 8:47 Unknown AM CDT AM CDT Narrative [facility] LABORATORY-CENTRAL LABORAT ORY - 07/13/2022 2:34 PM CDT HPV types 16, 18, 31, 33, 35, 39, 45, 51, 52, 56, 58, 59, 66 and 68 DNA were undetectable or below the pre-set threshold. Methodology: [employer]00 HPV Test Josh Ardon MD MICROBIOLOGY Performing Organization Address City/State/ZIP Code Phon e Number [facility] [address] [place] [address] LABORATORY-CENTRAL 2000 LABORATORY from Last 3 Months Insurance Payer Benefit Plan / Subscriber ID Effective Dates Phone Addre ss Type Group JOSE MARIA MOISE MA [id number] 2021-Present [address] [place] [address] Ermelinda Calderon Personal/Family Self 1995 [address] (Home) [address], [place] [address] Advance Directives Latest Code Status on File Code Status Date Activated Date Inactivated Comments Full Code 03/03/2022 2:50 AM 03/03/2022 12:10 PM Code Status Discussion: Reviewed Preferences Full Code 02/17/2022 7:08 AM 03/01/2022 8:54 PM Code Status Discussion: Reviewed Preferences Full Code 02/16/2022 5:29 PM 02/17/2022 7:08 AM Code Status Discussion: Unable to Assess Preferences, Provid er to review later Care Teams Salt Plant Operator Relationship Specialty Start Date End Date Wagner Kaye MD PCP - General Family Practice 08/03/21 [facility] [place] [address]
--- OUTSIDE RECORDS SUMMARY | 2022-08-13 09:09 | XMS_ITS | Encounter Summary ---
:1995 Author Organization [facility] Address [address], [place] [address] Care Team Providers Name Role Phone Unavailable Primary Care Provider Unavailable Reason for Visit Reason Comments LAB RESULTS Encounter Details Date Type Department Care Team Description 01/06/2021 Telephone [facility] [address] , LAB RESULTS Endocrinology [address] [place] [address] [place], [place] [phone] (Wo rk) Social History Tobacco Use Types Packs/Day Years Used Date Smoking Tobacco: Never Smokeless Tobacco: Never Sex Assigned at Date Recorded Not on file documented as of this encounter Nursing Notes Colin Marshall RN - 01/06/2021 4:21 PM CST Called Pt. And relayed message below. Pt. Verbalized understanding, agrees with plan, and has no further questions. OCOL OFFICER Colin Marshall RN - 01/06/2021 4:17 PM CST ----- Message from Celina Acosta MD sent at 01/06/2021 3:54 PM PROTOCOL OFFICER ----- Please report to Ms. Calderon that [...] medication changes. Celina Acosta MD Endocrinology Service OCOL OFFICER documented in this encounter Plan of Treatment Upcoming Encounters Date Type Specialty Care Team Description 09/08/2022 Telemedicine Endocrinology Marsha Acosta ra, MD [address] [facility] [id number] (Wo rk) documented as of this encounter Visit Diagnoses Not on filedocumented in this encounter
--- OUTSIDE RECORDS SUMMARY | 2022-08-13 09:09 | XMS_ITS | Encounter Summary ---
:1995 Author Organization [employer] Address [address] [address] Care Team Providers Name Role Phone Unavailable Primary Care Provider Unavailable Reason for Visit Reason Comments Other Encounter Details Date Type Department Care Team Description 02/27/2021 Telephone [facility] [address] , Other Endocrinology MD [address] [place] [address] [place] [address] (Wo rk) Social History Tobacco Use Types Packs/Day Years Used Date Smoking Tobacco: Never Smokeless Tobacco: Never Sex Assigned at Date Recorded Not on file documented as of this encounter Nursing Notes Nelli Serrano RN - 02/27/2021 3:46 PM CDT Pt returned call; recommendations below given. Pt will go in today and have labs done. Wagner Castellanos RN - 02/27/2021 3:39 PM CDT LVM requesting pt return call for provider recommendations below. Celina Acosta MD - 02/27/2021 3:33 PM CDT Agree with the plan Hold off on Bydureon. Labs ordered - she can do them today. FU next week, ok to use same day. Celina Acosta MD Endocrinology Service Wagner Castellanos, RN - 02/27/2021 1:17 PM CDT Pt calls stating that she has been experiencing severe side effects form Bydureon since starting it.States she has been taking Bydureon weekly for about a month and has been experiencing significant nausea and vomiting as well as upper abdominal pain for 2-3 days after taking her dose. She states thepain does subside some about 2-3 days after the dose, but then returns when she takes the next dose. Pt is due for her next dose of Bydureon this evening. Advised pt to not take another dose until she hears back from Dr. Acosta. Also advised pt that she should consider being evaluated in urgent careas a side effect of GLP-1s can be pancreatitis. Will update Dr. Acosta about the above. documented in this encounter Plan of Treatment Upcoming Encounters Date Type Specialty Care Team Description 09/08/2022 Telemedicine Endocrinology Marsha Acosta ra, MD [address] [facility] [id number] (Wo rk) documented as of this encounter Results Lipase (02/27/2021 4:38 PM CDT) athologist Signature Lipase 19 8 - 78 U/L 02/27/2021 [place] 5:20 PM CDT LABORATORY Specimen Anatomical Collection Method / Collection Time Recei chantelle Time (Source) Location / Volume Laterality Blood Venipuncture / 02/27/2021 4:38 02/27/2021 4:38 Unknown PM CDT PM CDT Celina Acosta MD LAB_1 Performing Organization Address City/State/ZIP Code Phon e Number [facility] [address] [place] [address] documented in this encounter Visit Diagnoses Diagnosis Uncontrolled type 2 diabetes mellitus wi th hyperglycemia (HRC) - Primary documented in this encounter
--- OUTSIDE RECORDS SUMMARY | 2022-08-13 09:09 | XMS_ITS | Encounter Summary ---
:1995 Author [facility] Address [address] [address] Care Team Providers Name Role Phone Unavailable Primary Care Provider Unavailable Reason for Visit Reason Onset Date Comments Medication Questions 04/01/2021 Isaac Encounter Details Date Type Department Care Team Description 04/01/2021 Telephone [facility] [address] Sanju Rodríguez edication Questions Brian Iqbal MD ([facility] ) [address] [facility] [address] [place] [phone] (Wo rk) Social History Tobacco Use Types Packs/Day Years Used Date Smoking Tobacco: Never Smokeless Tobacco: Never Sex Assigned at Date Recorded Not on file documented as of this encounter Nursing Notes Colin Marshall RN - 05/01/2021 4:10 PM CDT Called patient and relayed message below. Patient verbalized understanding, agrees with plan, and has no further questions at this time. Sanju Rodríguez MD - 05/01/2021 3:28 PM CDT Insulin is the safest option during . I recommend she keep a record of sugars: Fasting, 2 hours after meals, and bedtime She should bring that in when she sees me in May. Diet and exercise: low starch in diet, supplement with proteins and veggies Moderate exercise such as daily 30-60 min walks. Sanju Rodríguez MD Endocrinology Service Colin Marshall RN - 05/01/2021 2:48 PM CDT Pt now, has f/u visit 05/13, and wants to know if Vicotza will be safe for before prescribing that. Please advise. Detailed VM ok per pt. Colin Marshall RN - 05/01/2021 2:27 PM CDT Called patient and relayed message below. Patient verbalized understanding, agrees with plan. She recently found out she was , and would like an appt to connect prior to starting Victoza. Transferred to scheduling. Colin Marshall RN - 04/10/2021 3:18 PM CDT 4th message left for patient. They have been unable to be reached and are not active on MyChart. Closing this encounter. Lavern Asher RN - 04/08/2021 8:50 AM CDT Left voicemail for Pt. To call back for message below. Colin Marshall RN - 04/03/2021 4:37 PM CDT Left patient message regarding plan of care, and instructed them to call us back. Nelli Serrano RN - 04/03/2021 9:58 AM CDT Called pt; left a 2nd vm for her to call us back. Wagner Castellanos RN - 04/02/2021 3:34 PM CDT LVM requesting pt return call to discuss the below. Sanju Rodríguez MD - 04/02/2021 3:23 PM CDT Please report to Ermelinda that her insurance only approves Victoza, and Bydureon is no longer covered.Victoza is a daily dosing but can lead to weight loss and would be an excellent option. We can switch it if she is agreeable. Thanks Sanju Rodríguez MD Endocrinology Service Wagner Castellanos RN - 04/02/2021 2:17 PM CDT Please see below message from DA. Insurance won't cover the Bydureon B-Cise pen unless the below criteria are met. The old Bydureon pen is no longer being manufactured. Ok to switch to Victoza if Ok with pt? Has this patient had a trial and failure of at least two formulary alternatives in the same class (or just one if two do not exist)? The preferred alternatives include the following: BYDUREON PEN,BYETTA,JANUVIA,ONGLYZA,TRADJENTA,VICTOZA 2-NASIR Please advise if patient can switch Jeaneth Ryan RN - 04/01/2021 12:04 PM CDT B-Cise pen sent. Requested Prescriptions Signed Prescriptions Disp Refills ??? exenatide ER (BYDUREON BCISE) 2 MG/0.85ML injection pen 12 Pen 3 Sig: Inject 1 Pen subcutaneously once a week. Authorizing Provider: SANJU RODRÍGUEZ Ordering User: JEANETH RYAN Refilled per RN protocol Cinthya Raya - 04/01/2021 11:59 AM CDT MEDICATION CHANGE REQUEST: Fax received from pharmacy stating that exenatide ER (BYDUREON) 2 MG pen injector is no longer available. Please advise pharmacy if there is an appropriate substitute. Thank you. Please see telephone encounter 02/27/21 [facility] PH: [phone] documented in this encounter Plan of Treatment Upcoming Encounters Date Type Specialty Care Team Description 09/08/2022 Telemedicine Endocrinology Marsha Rodríguez ra, MD [address] [facility] [place] [address] (Wo rk) documented as of this encounter Visit Diagnoses Not on filedocumented in this encounter
--- OUTSIDE RECORDS SUMMARY | 2022-08-13 09:09 | XMS_ITS | Encounter Summary ---
:[address] [facility] Address [address], [place] [address] Care Team Providers Name Role Phone Unavailable Primary Care Provider Unavailable Reason for Visit Reason Comments LAB RESULTS Encounter Details Date Type Department Care Team Description 01/13/2021 Telephone [facility] [address] , LAB RESULTS Endocrinology [address] [place] [address] [place], [place] [phone] (Wo rk) Social History Tobacco Use Types Packs/Day Years Used Date Smoking Tobacco: Never Smokeless Tobacco: Never Sex Assigned at Date Recorded Not on file documented as of this encounter Nursing Notes Grace Ryan RN - 01/14/2021 1:17 PM CST Called Pt. And relayed message below. Left call back number if Pt. Has any further questions or concerns. MAKER Celina Acosta MD - 01/14/2021 12:52 PM CST No metformin -- but may be needed in future if sugars are still high, as planned. Celina Acosta MD Endocrinology Service MAKER Colin Marshall RN - 01/13/2021 2:45 PM CST Called Pt. And relayed message below. Pt. Verbalized understanding, agrees with plan, and has no further questions. Pt also wants to know about monitoring of high LDL cholesterol jessi, as well as if Metformin is required at this time. Detailed VM ok per pt. MAKER Colin Marshall RN - 01/13/2021 2:45 PM CST ----- Message from Celina Acosta MD sent at 01/13/2021 10:58 AM BODY MAKER ----- Please report to Ermelinda that the liver function test returned completely normal and hepatitis panel was negative as well for Hepatitis A, B and C. No further testing is needed. Celina Acosta MD Endocrinology Service MAKER documented in this encounter Plan of Treatment Upcoming Encounters Date Type Specialty Care Team Description 09/08/2022 Telemedicine Endocrinology Marsha Acosta ra, MD [address] [facility] Alexandra [place] [id number] (Wo rk) documented as of this encounter Visit Diagnoses Not on filedocumented in this encounter
--- NOTE | 2022-08-13 09:15 | ED.ABDPAIN ---
HPI - Abdominal Pain General Chief Complaint: Abdominal Pain Stated Complaint: pain in stomach History of Present Illness HPI narrative: This 27-year-old female comes in reporting upper epigastric abdominal pain with vomiting. This began several days ago when she began taking an diet medication that she acquired online. She does not report any fevers. She states that she has a history of diabetes. Currently she does not have any nausea. She states that the pain in her upper epigastric region became severe last night. Related Data Previous Rx's Medication Instructions Recorded pantoprazole 20 mg tablet,delayed 20 mg PO DAILY #20 tabs 08/13/22 release (Protonix) Allergies Allergy/AdvReac Type Severity Reaction Status Date / Time No Known Drug Allergies Allergy Verified 08/13/22 08:44 Review of Systems Status of ROS Reports: 10 or more systems reviewed and unremarkable except as noted in History and below Narrative Constitutional: No fevers, no weight gain or loss. Eyes: No discharge. No vision changes. HENT: No congestion, no sore throat, no ear pain. Cardiovascular: No chest pain, no palpitations. Respiratory: No shortness of breath, no wheezes, no cough. Gastrointestinal: Abdominal pain and vomiting as described above. No diarrhea. Genitourinary: No dysuria, no hematuria. Musculoskeletal: Normal range of motion. Skin: No rashes, no pruritis. Neurological: No dizziness, weakness, sensory change, speech change. Endo/Heme/Allergies: No bruising or bleeding. No polydipsia. Pysch: no suicidality, no anxiety, no insomnia. All other systems reviewed and are negative. PFSH PFS Social History Smoking Status: Never smoker Do you use any of these nicotine containing products: None Second hand tobacco smoke exposure: No How often do you have a drink containing alcohol: never How often do you have six or more drinks on one occasion: Never AUDIT-C Alcohol total score: 0 Non-prescribed substance use: other Non-prescribed substance use details: diet pills service: No Exam Narrative: Exam Narrative: Constitutional: Well-developed, well-nourished, no acute distress. HEENT: Normocephalic, atraumatic. Neck: Normal range of motion. Nontender. Supple. Heart: Regular. No murmurs. Normal rate. Intact distal pulses. Lungs: Clear to auscultation. No chest discomfort. No wheezes, rhonchi, or rales. Abdomen: Normal bowel sounds. Upper epigastric tenderness. No rebound tenderness. Genitalia: Deferred. Back: No midline tenderness. Normal range of motion. Extremities: Normal range of motion. No injury. Skin: Intact. No rash. Warm. No erythema or pallor. Neurologic: No altered sensation. No weakness. Alert and oriented. Psychiatric: No suicidality. No anxiety or depression. No insomnia. Nursing notes and vitals signs are reviewed. Const: Vital Signs, click to edit/add: Vital Signs - 24 hr 08/13/22 08:45 08/13/22 11:52 Temperature 98.4 F Pulse Rate [Pulse Oximeter] 83 83 Respiratory Rate 18 18 Blood Pressure [Le ft Upper Arm] 122/99 H 130/85 Pulse Oximetry 97 100 Oxygen Delivery Me thod Room Air Course Vital Signs Vital signs: Initial Vital Signs Temperature 98.4 F 08/13/22 08:45 Temperature Source Temporal Artery Scan 08/13/22 08:45 Pulse Rate 83 08/13/22 08:45 Pulse Rhythm 08/13/22 08:45 Respiratory Rate 18 08/13/22 08:45 Blood Pressure 122/99 H 08/13/22 08:45 Blood Pressure Mean 106 08/13/22 08:45 Pulse Oximetry 97 08/13/22 08:45 Oxygen Delivery Method 08/13/22 08:45 Vital Signs Temperature 98.4 F 08/13/22 08:45 Pulse Rate 83 08/13/22 08:45 Respiratory Rate 18 08/13/22 08:45 Blood Pressure 122/99 H 08/13/22 08:45 Pulse Oximetry 97 08/13/22 08:45 Oxygen Delivery Method 08/13/22 08:45 Temperature 98.4 F 08/13/22 08:45 Pulse Rate 83 08/13/22 11:52 Respiratory Rate 18 08/13/22 11:52 Blood Pressure 130/85 08/13/22 11:52 Pulse Oximetry 100 08/13/22 11:52 Oxygen Delivery Method 08/13/22 08:45 MDM - Abdominal Pain MDM Narrative Medical decision making narrative: This patient comes in with upper epigastric pain typical of a gastritis. She did receive an oral dose of Zofran and a GI cocktail. She states that the GI cocktail brought great relief to her symptoms. Lab results returned with reassuring findings also. Her glucose is elevated at 275. She does have a prior history of diabetes. She is okay to return home. She did receive a prescription for Protonix. Lab Data Labs: Lab Results 08/13/22 08/13/22 Range/Units 09:45 09:45 WBC 9.55 (4.50-11.00) K/uL RBC 4.29 (4.00-5.20) m/uL Hgb 12.1 (12.0-16.0) gm/dL Hct 36.3 (33.0-51.0) % MCV 85 (80-100) fL MCH 28 (26-34) pg MCHC 33 (32-36) gm/dL RDW Coeff of Yolanda 13.1 (11.5-15.5) % Plt Count 382 (140-440) K/uL Neut % (Auto) 55.9 (42.0-72.0) % Lymph % (Auto) 37.8 (20-44) % Rooks % (Auto) 4.9 (0.0-11.0) % Eos % (Auto) 0.9 (0.0-7.0) % Baso % (Auto) 0.1 (0.0-3.0) % Neut # (Auto) 5.33 (1.7-7.0) K/uL Lymph # (Auto) 3.61 H (0.90-2.90) K/uL Rooks # (Auto) 0.50 (0.00-0.90) K/UL Eos # (Auto) 0.09 (0.00-0.50) K/uL Baso # (Auto) 0.01 (0.00-0.30) K/uL Abs Immat Gran (auto) 0.04 (0.00-0.30) K/uL Sodium 135 (135-149) mmol/L Potassium 4.1 (3.6-5.1) mmol/L Chloride 101 (96-114) mmol/L Carbon Dioxide 24 (20-32) mmol/L BUN 14 (5-24) mg/dL Creatinine 0.6 (0.5-1.5) mg/dL Estimated Creat Clear 124.49 Estimated GFR 125 ml/min Glucose 275 H (60-115) mg/dL Calcium 9.1 (8.4-10.6) mg/dL Total Bilirubin 0.2 (0.1-1.5) mg/dL Direct Bilirubin 0.0 (0.0-0.5) mg/dL AST 33 (12-35) U/L ALT 30 (4-35) U/L Alkaline Phosphatase 110 (40-150) U/L Total Protein 7.2 (6.0-8.3) g/dL Albumin 3.9 (3.3-5.0) g/dL Lipase 71 (23-300) U/L Discharge Plan Discharge Clinical Impression: Gastritis Patient Disposition: Home, Self-Care Condition: Improved Additional Instructions: Take medication as directed and needed. Follow up with MD or return if worsening. Prescriptions: New pantoprazole [Protonix] 20 mg tablet,delayed release (DR/EC) 20 mg PO DAILY Qty: 20 2RF Follow Up/Referrals: Daysi Almonte MD [Primary Care Provider] - Stand Alone Forms: Dou[employer] Alleyth Info Instructions
[2022-08-13] MEDS: GI COCKTAIL (VISC LIDO/ANTACID) 30 ML PO (09:22)
[2022-08-13 10:14] LABS: Basophils Absolute Auto 0.01 K/uL (0.00-0.30); Basophils Percent Auto 0.1 % (0.0-3.0); Eosinophils Absolute Auto 0.09 K/uL (0.00-0.50); Eosinophils Percent Auto 0.9 % (0.0-7.0); Hematocrit 36.3 % (33.0-51.0); Hemoglobin* 12.1 gm/dL (12.0-16.0); Immature Granulocytes Abs Auto 0.04 K/uL (0.00-0.30); Lymphocytes Absolute Auto 3.61 K/uL (0.90-2.90); Lymphocytes Percent Auto 37.8 % (20-44); Mean Corpuscular HGB Conc 33 gm/dL (32-36); Mean Corpuscular Hemoglobin 28 pg (26-34); Mean Corpuscular Volume 85 fL (80-100); Monocytes Percent Auto 4.9 % (0.0-11.0); Neutrophils Absolute Auto 5.33 K/uL (1.7-7.0); Neutrophils Percent Auto 55.9 % (42.0-72.0); Platelet Count* 382 K/uL (140-440); RDW Coefficient of Variation % 13.1 % (11.5-15.5); Red Blood Count 4.29 m/uL (4.00-5.20); White Blood Count* 9.55 K/uL (4.50-11.00)
[2022-08-13 10:16] LABS: Slide Review Reflex No
[2022-08-13 11:45] LABS: Albumin* 3.9 g/dL (3.3-5.0); Chloride* 101 mmol/L (96-114); Sodium* 135 mmol/L (135-149)
[2022-08-13 11:46] LABS: Potassium* 4.1 mmol/L (3.6-5.1)
[2022-08-13 11:48] LABS: Alkaline Phosphatase* 110 U/L (40-150); Aspartate Amino Transferase* 33 U/L (12-35); Bilirubin Total* 0.2 mg/dL (0.1-1.5); Blood Urea Nitrogen* 14 mg/dL (5-24); Calcium* 9.1 mg/dL (8.4-10.6); Carbon Dioxide* 24 mmol/L (20-32); Creatinine* 0.6 mg/dL (0.5-1.5); Est. Creatinine Clearance* 124.49; Estimated Glomerular Filt Rate 125 ml/min; Glucose* 275 mg/dL (60-115); Total Protein* 7.2 g/dL (6.0-8.3)
[2022-08-13 11:49] LABS: Alanine Aminotransferase* 30 U/L (4-35); Lipase* 71 U/L (23-300)
[2022-08-13 11:52] VITALS: BP 130/85; PULSE 83; RESP 18; O2SAT 100
== END 2022-08-13 12:44 | disposition home or self-care (01) ==
PROVIDERS: Emergency Provider Emergency Medicine Emergency Medical Services; PCP Obstetrics & Gynecology
DX: K29.70 Gastritis, unspecified, without bleeding (principal)
CPT/HCPCS: 36415; 80048; 80076; 83690; 85025; 99283; 99284; A9270

== ENCOUNTER 2022-09-24 16:09 | Outpatient (CLI) | payer MEDICAID, SELFPAY ==
--- OUTSIDE RECORDS SUMMARY | 2022-09-24 17:39 | XMS_ITS | Encounter Summary ---
:1995 Author Organization [facility] Address [address] [place] [address] Care Team Providers Name Role Phone Unavailable Primary Care Provider Unavailable Reason for Visit Reason Comments Prior Authorization For Medication Encounter Details Date Type Department Care Team Description 09/13/2022 Telephone [facility] [address] or Authorization For Endocrinology Akash Iqbal MD Medication [address] [facility] [place] [address] [phone] (Wo rk) Social History Tobacco Use Types [...] drinks on one occasion? No t asked Sex Assigned at Date Recorded Not on file documented as of this encounter Nursing Notes Jade Wong - 09/15/2022 8:34 AM CST Thank you. Appeal has been submitted electronically with provided rationale. IAN TUTOR Celina Acosta MD - 09/14/2022 3:15 PM CST I would like to appeal this decision since patient has used some of these medications and did not work / developed side effects from them. Celina Acosta MD Endocrinology Service IAN TUTOR Jade Wong - 09/14/2022 2:05 PM CST Denial letter states formulary alternatives include: Rik Gray Victoza. This would have beenrouted to Dr. Acosta, but I do not see he's had an opportunity to respond on if an alternative is appropriate. Routing again on how to proceed. IAN TUTOR Rachelle Jo, SAIMA - 09/13/2022 11:03 AM CST Pt calling in about Ozempic Rx and PA status. It appears that the PA was denied but it the notes don't give explanation, or if any alternatives are covered? DA: please advise. IAN TUTOR documented in this encounter Plan of Treatment Not on filedocumented as of this encounter Visit Diagnoses Not on filedocumented in this encounter
--- OUTSIDE RECORDS SUMMARY | 2022-09-24 17:39 | XMS_ITS | Encounter Summary ---
:1995 Author Organization [facility] Address [address], [place] [address] Care Team Providers Name Role Phone Unavailable Primary Care Provider Unavailable Reason for Visit Reason Comments Follow-up Encounter Details Date Type Department Care Team Description 09/08/[address] [facility] [address] Un[facility] ontrolled type 2 Endocrinology Akash Iqbal MD diabetes mellitus with [address] erglycemia ([facility]) [address] (Primary Dx) [place] [address] [phone] Social History Tobacco Use Types Packs/Day Years [...] as of this encounter Plan of Treatment Not on filedocumented as of this encounter Visit Diagnoses Diagnosis Uncontrolled type 2 diabetes mellitus wi th hyperglycemia (HRC) - Primary documented in this encounter
--- OUTSIDE RECORDS SUMMARY | 2022-09-24 17:39 | XMS_ITS | Encounter Summary ---
:1995 Author [facility] Address [address] [place] [address] Care Team Providers Name Role Phone Unavailable Primary Care Provider Unavailable Reason for Visit Reason Comments Appt. Needed 2 week f/u with Grisel Encounter Details Date Type Department Care Team Description 10/02/2021 Telephone [facility] 38[address] Nurse, P3800 End Appt. Needed (2 week Endocrinology [address] f/u with Grisel) [address] [place] [id number] Social History Tobacco Use Types Packs/Day Years [...] with Grisel pt does not have [facility] documented in this encounter Plan of Treatment Not on filedocumented as of this encounter Visit Diagnoses Not on filedocumented in this encounter
--- OUTSIDE RECORDS SUMMARY | 2022-09-24 17:39 | XMS_ITS | Clinical Summary ---
:1995 [facility] Address [address] [place] [address] Care Team Providers Name Role Phone Unavailable [...] for each transition of care or referral. [place] Allergies No known active allergies Medications Medication Sig Dispensed Refills Start Date End Date Status ULTICARE MINI PEN 0 12/25/2020 A ctive NEEDLES Blood Glucose Use to test test 1 Kit 0 06/04/2021 Active Monitoring Suppl blood sugars (ACCU-CHEK GUIDE) w/Device KITIndications: Uncontrolled type 2 diabetes mellitus with hyperglycemia (HRC) insulin NPH, human Inject 18 Units 30 mL 3 11/02/202110/08 Active isophane, (HUMULIN subcutaneously every NPH) 100 UNIT/ML evening. injectionIndication s: Uncontrolled type 2 diabetes mellitus with hyperglycemia (HRC), Obesity, unspecified obesity severity, unspecified obesity type (HRC) Additional Information Patient not taking. Reported on 09/08/2022 ACCU-CHEK GUIDE test Use 5-6 Each to 200 Strip 6 02/01/2022 Active stripIndications: test daily. Uncontrolled type 2 diabetes mellitus with hyperglycemia (HRC) ACCU-CHEK SOFTCLIX Use 4-6 Each to 200 Each 6 02/01/2022 Active lancetsIndications: test daily. Uncontrolled type 2 diabetes mellitus with hyperglycemia (HRC) NOVOLOG FLEXPEN 100 Inject 20-25 units 75 mL 3 02/11/2022 Active UNIT/ML pen with each meal injectionIndications: Uncontrolled type 2 diabetes mellitus with hyperglycemia (HRC), Obesity, unspecified obesity severity, unspecified obesity type (HRC) semaglutide (OZEMPIC) Inject 0.5 mg 1.5 mL 3 09/24/2022 Active 2 MG/1.5ML subcutaneously once injectionIndications: a week. Uncontrolled type 2 diabetes mellitus with hyperglycemia (HRC) semaglutide (OZEMPIC) Inject 0.25 mg 1.5 mL 3 09/08/2022 Discontinued 2 MG/1.5ML subcutaneously once (*Med change OR injectionIndications: a week. same med OR Uncontrolled type 2 reorder, new diabetes mellitus with dose/directions) hyperglycemia (HRC) Active Problems Problem Noted Date Uncontrolled type 2 diabetes mellitus with hyperglycem ia 05/13/2021 complicated by pre-existing type 2 diabetes in first trimester 05/13/2021 Obesity, unspecified obesity severity, unspecified obe sity type 05/13/2021 Encounters Date Type Specialty Care Team Description 09/24/2022 Telephone Endocrinology Celina Acosta MD 09/13/2022 Telephone Endocrinology Celina Acosta Prior Authorization For MD Rasheed Medication 09/08/2022 Telemedicine Endocrinology Celina Acosta Uncont rolled type 2 MD Rasheed diabetes [facility] with hyperglycemia ( HRC) (Primary Dx) 09/08/2022 Telephone Endocrinology Celina Acosta Follow -up MD Rasheed from Last 3 Months Social History Tobacco Use Types Packs/Day Years [...] Comments Blood Pressure 127/96 01/12/2021 11:21 AM WASTE RECLAIMER Pulse 79 01/12/2021 11:21 AM WASTE RECLAIMER Temperature - - Respiratory Rate - - Oxygen Saturation - - Inhaled Oxygen Concentration - - Weight 87.1 kg (192 lb 1.6 oz) 01/12/2021 11:21 AM WASTE RECLAIMER Height 165.1 cm (5' 5) 01/12/2021 11:21 AM WASTE RECLAIMER Body Mass Index 31.97 01/12/2021 11:21 AM WASTE RECLAIMER Plan of Treatment Health Maintenance Due Date Last Done Comments Cervical Cancer Screening 1993 Due Diabetes: Foot Exam 1993 COVID-19 Vaccine (#1) 1993 Pneumococcal (1 - PCV) 1999 HIV Screening (Preventive 2009 Services) Adult Preventive Visit 2011 HepB (1) 2012 Diabetes: HGBA1C 03/28/2021 12/29/2020, 12/29/2020 Diabetes: Creatinine 12/29/2021 12/29/2020 Diabetes: Urine 12/29/2021 12/29/2020 Microalbumin Diabetes: Eye Exam 01/27/2022 01/27/2021 Diabetes: Lipid Panel 12/29/2025 12/29/2020 DTaP/Tdap/Td (2 - Tdap) 02/26/2032 02/25/2022 Zoster/Shingles (1 of 2) 2043 HPV Vaccine Aged Out 12/18/2020, 05/13/2020, No longe r eligible 10/22/2019 based on patient 's age to complete this topic Hep C Screening (Preventive Completed 01/12/2021 Services) Influenza Completed 07/14/2022, 10/14/2021, 12/18/2020, Additional history exists HepA Aged Out No longer eligib le based on patient 's age to complete this topic Hib Aged Out No longer eligib le based on patient 's age to complete this topic IPV (Polio) Aged Out No longer eligib le based on patient 's age to complete this topic MCV4 Aged Out No longer eligib le based on patient 's age to complete this topic Insurance Payer Benefit Plan / Subscriber ID Effective Dates Phone Addre ss Type Group [facility] [id number] 2021-Present [phone] CLAIMS Medicaid [address] [place] [address]
--- OUTSIDE RECORDS SUMMARY | 2022-09-24 17:39 | XMS_ITS | Encounter Summary ---
:1995 [facility] Address [address] [place] [address] Care Team Providers Name Role Phone Unavailable Primary Care Provider Unavailable Reason for Visit Reason Onset Date Comments Refill 02/01/2022 Encounter Details Date Type Department Care Team Description 02/01/2022 Refill [facility] [address] Elizabeth Rodríguez MD Refill Endocrinology [address] [place] [address] [place] [address] [phone] Social History Tobacco Use Types Packs/Day Years [...] daily. Authorizing Provider: SANJU RODRÍGUEZ Ordering User: HENIRETTA OTERO documented in this encounter Plan of Treatment Not on filedocumented as of this encounter Visit Diagnoses Diagnosis Uncontrolled type 2 diabetes mellitus wi th hyperglycemia (HRC) - Primary documented in this encounter
--- OUTSIDE RECORDS SUMMARY | 2022-09-24 17:39 | XMS_ITS | Encounter Summary ---
:1995 Author Organization [facility] Address [address] [place] [address] Care Team Providers Name Role Phone Unavailable Primary Care Provider Unavailable Reason for Visit Reason Comments Follow-up Encounter Details Date Type Department Care Team Description 09/08/2022 Telephone [facility] [address] Celina Acosta , Follow-up Endocrinology [address] [place] [address] [place], [place] [id number] (Wo rk) Social History Tobacco Use Types [...] documented as of this encounter Nursing Notes Sabine Burns RN - 09/08/2022 4:00 PM CDT The patient is calling to report that she does not want to take the medication that will make her pee out the sugar. If the short does not work, or the insurance does not accept it, the patient is ok with taking something that does not give side effects and it does not have to be weight loss medication. documented in this encounter Plan of Treatment Not on filedocumented as of this encounter Visit Diagnoses Not on filedocumented in this encounter
--- OUTSIDE RECORDS SUMMARY | 2022-09-24 17:39 | XMS_ITS | Encounter Summary ---
:1995 [facility] Address [address] [place] [address] Care Team Providers Name Role Phone Unavailable Primary Care Provider Unavailable Encounter Details Date Type Department Care Team Description 11/02/2021 Telephone [facility] [address] Celina Acosta , Endocrinology [address] [place] [address] [place] [address] (Wo rk) Social History Tobacco [...] you, Jeanette Flynn PA-C 11/02/2021, 1:41 PM [employer] INST[employer]ER Elizabeth Vaca RN - 11/02/2021 1:31 PM CST Pharmacy calling in. Pt is at pharmacy for refill. They do not have updated rx at [facility]. See note from 10/13. Please see pending rx and send if approved. Pt verified dosing with pharmacy. 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 Acosta not in. 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
--- OUTSIDE RECORDS SUMMARY | 2022-09-24 17:39 | XMS_ITS | Clinical Summary ---
:1995 Author Organization [employer] [place] [address] Care Team Providers Name Role Phone Wagner Kaye MD Primary Care Provider [phone] Allergies Active Allergy Reactions Severity Noted Date Comments Norethindrone *Unknown Unknown 03/02/2021 Medications Medication Sig Dispensed Refills Start End Date Status Date blood sugar diagnostic TEST 3 TIMES DAILY 0 12/19/19 2 Active (Accu-Chek Guide test BEFORE MEALS. 1 strips) strip blood-glucose meter USE TO TEST 3 0 Active TIMES DAILY BEFORE 1 MEALS. ibuprofen (Motrin IB) Take 1-3 Tablets 100 Tablet 0 Active 200 mg (200-600 mg) by 2 tabletIndications: S/P mouth every 6 section hours if needed (for uterine cramping). Take with food. Breast Pump Electric breast 1 Each 0 Ac tive PurchaseIndications: pump for home use 2 Lactating mother for breast feeding at 39 weeks . FELIZ 04/27/22 Accu-Chek Softclix USE TO TEST BLOOD 0 Active Lancets GLUCOSE 4-6 TIMES 2 DAILY. UltiCare Pen Needle 31 use to inject 4 0 Active gauge x 1/4 times daily 2 drospirenone-ethinyl Take 1 Tablet by 84 Tablet 4 Active estradioL (ERMELINDA) mouth once daily. 2 3-0.03 mg tabletIndications: state, Encounter for initial prescription of contraceptive pills medroxyPROGESTERone Inject 150 mg 1 Each 3 Active acetate, contraceptive, intramuscular 2 (Depo-Provera) every 3 months. injectionIndications: Encounter for initial prescription of injectable contraceptive Hospital, Clinic, or Ordered Dose Route Frequency Start Date End D ate Status Other Facility Administered Medication medroxyPROGESTERone 150 mg IM Q 3 MONTHS (12 08/12/202209/09 Active acetate (contraceptive) WEEKS) 3 (DEPO-PROVERA) injection 150 mgIndications: Encounter for contraceptive management, unspecified type Active Problems Problem Noted Date Pap smear for cervical cancer screening 08/27/2022 Overview: 07/2022 NIL/HPV negative. Plan: Pap/HPV d ue 07/2027 Heartburn during in third trimester 02/27/20 Preeclampsia, third trimester 02/17/2022 History of delivery, [...] in second trimester 11/17/2021 Overview: labs from [facility] 1 : Blood type: A+ Antibodies: Negative HCV: Negative HbsAg: Negative HIV: Negative Hgb A1c: 5.9 RPR: Reactive Treponema: Negative Hgb: 11.8 Plt: 395 Rubella ig.6 09/24/21 UA: NL TGC: Negative located in left uterine horn p er US from [place] on 09/29/21, subchorionic hemorrhage noted in right horn at this time. Abnormal position of kidney 11/17/2021 Overview: Left kidney located in pelvis Positive RPR test 11/17/2021 Overview: Reported from [place] from l abs collected on 09/04/21, negative treponema 09/04/21. Obesity, unspecified obesity severity, unspecified obe sity type 05/13/2021 Mixed hyperlipidemia 03/03/2021 Hepatic steatosis 12/20/2020 Overview: per [facility] from [facility] Diabetes mellitus affecting in third trimest [...] Encounters Date Type Specialty Care Team Description 08/16/2022 Nurse/Clinic Staff Only Immu nization/Injection (MedroxyProgest erone) 08/16/2022 Travel 08/10/2022 Telephone Josh Ardon, Questions 07/15/2022 Telephone Josh Ardon, Results 07/08/2022 Office Visit Josh Ardon, Physical ( Pt never had MD PP visit. 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 Obstetrics History Para Term AB IAB SAB Ectopic Multiple Living Live Births 4 2 0 2 2 0 1 1 0 2 2 Date Outcome GA Total Labor/2nd/3rd Weight Sex Delivery Anes PTL Rosalia A 1 A5 Name Clin Labor 01/22 31w 0.99 kg F Arabella Silvia 0d (2 lb 3 ng oz) Complications: Preeclampsia Delivery Location: Hospital ([facility] in [place]) Comments: section for agnes ech presentation at 31 weeks after diagnosis of IUGR and preeclampsia 2019 SAB Comments: Didn't even know I was no complications 05/2021 Ectopic 12w0d Comments: Declined surgery, no tub al rupture 02/26/2022 31w3d 0h 0h F General Living 8 8 MARIA EUGENIA,BG Bran, 01m 01m ERMELINDA Garcia MD Complications: None Delivery Location: Hospital ([facility] 2000 L&D TRIAGE) Last Filed Vital Signs Vital Sign Reading Time Taken Comments Blood Pressure 110/76 08/16/2022 11:37 AM CDT Pulse 84 03/05/2022 8:45 PM CDT Temperature 36.8 ??C (98.3 ??F) 03/05/2022 6:45 PM CDT Respiratory Rate 18 03/05/2022 6:45 PM CDT Oxygen Saturation 99% 03/05/2022 6:45 PM CDT Inhaled Oxygen Concentration - - Weight 89.7 kg (197 lb 12.8 oz) 08/16/2022 11:37 AM CDT Height 165.1 cm (5' 5) 07/08/2022 10:07 AM CDT Body Mass Index 32.92 07/08/2022 10:07 AM CDT Plan of Treatment [...] 07/08/2022, 09/2022 Pap test for age 21-65 07/08/2027 07/08/2022, 07/08/2022, 10/22/2019 Tetanus booster 02/26/2032 02/25/2022 [...] edema procedure are in the results section. ASSEMBLER CRIMPER THIN PREP PAP Routine 07/08/2022 10:40 Screening [...] HEMOGLOBIN A1C 6.9 (H) <=6.4 % 07/09/2022 [facility] SCREENING 11:21 AM CDT LABORATORY-[facility] TRAL LABORATORY Specimen Anatomical Collection Method / Collection Time Recei chantelle Time (Source) Location / Volume Laterality Blood BLOOD SPECIMEN / Venipuncture / 07/08/2022 11:23 07/08 Unknown Unknown AM CDT 11:23 AM CDT Narrative [facility] LABORATORY-CENTRAL LABORAT ORY - 07/09/2022 11:21 AM CDT ? (<5.7%) ?Normal ? (5.7% to 6.4%) ? Indicates pr ediabetes ? (>=6.5%) ? Confirms diabetes Falsely low levels may be seen with: Recent Transfusion, Recent Significant B lood Loss, Hemolytic Diseases, or Falsely elevated levels may be seen with : Untreated Anemias, Splenectomy Josh Ardon MD CHEMISTRY Performing Organization Address City/[facility]/ZIP Code Phon e Number [employer] [address] [place] [address] LABORATORY-CENTRAL 2000 LABORATORY TSH (07/08/2022 11:23 AM CDT) athologist Signature TSH 1.90 0.35 - 4.94 07/09/[address] [facility] uIU/mL 1:01 AM CDT LABORATORY-CENTR AL LABORATORY Specimen Anatomical Collection Method / Collection Time Recei chantelle Time (Source) Location / Volume Laterality Blood BLOOD SPECIMEN / Venipuncture / 07/08/2022 11:23 07/08 Unknown Unknown AM CDT 11:23 AM CDT Narrative [facility] LABORATORY-CENTRAL LABORAT ORY - 07/09/2022 1:01 AM CDT In Adults, TSH values between 5.00 and 10.00 uIU/ml do not necessarily indicate the presence of Hyp othyroidism. Correlation with clinical findings such as presence of goiter and/or Thyroperoxidase (TPO) Antibody ma y be helpful. For more information please refer to CANDACE 20 04; 291: 228-238. Josh Ardon MD CHEMISTRY Performing Organization Address [facility] Phon e Number [facility] [address] [place] [address] LABORATORY-CENTRAL 2000 LABORATORY ANTI HCV (07/08/2022 11:23 AM CDT) [facility] gist Method Time Signature HEPATITIS C Non-Reacti Non-Reacti 07/09/[address] [facility] ANTIBODY ve ve 1:08 AM CDT [...] Ardon MD SEND OUTS Performing Organization Address [facility]/ZIP Code Phon e Number [facility] [address] [place] [address] LABORATORY-CENTRAL 2000 LABORATORY CBC W PLT NO DIFF (07/08/2022 11:23 AM CDT) P athologist Signature WHITE BLOOD 5.5 4.5 - 11.0 07/08/2022 [facility] COUNT thou/cu mm 11:28 AM CDT [facility] RED BLOOD COUNT 4.93 4.00 - 07/08/2022 [facility] 5.20 11:28 AM CDT [place] mil/cu mm [facility]ICAL CLINIC HEMOGLOBIN 13.8 12.0 - 07/08/2022 [facility] 16.0 g/dL 11:28 AM CDT [facility] HEMATOCRIT 42.5 33.0 - 07/08/2022 [facility] 51.0 % 11:28 AM CDT [facility] MCV 86 80 - 100 07/08/[address] [facility] fL 11:28 AM CDT [facility] MCH 28.0 26.0 - 07/08/2022 [facility] 34.0 pg 11:28 AM CDT [facility] MCHC 32.5 32.0 - 07/08/2022 [facility] 36.0 g/dL 11:28 AM CDT [facility] RDW 13.2 11.5 - 07/08/[address] [facility] 15.5 % 11:28 AM CDT [facility] PLATELET COUNT 362 140 - 440 07/08/[address] [facility] thou/cu mm 11:28 AM CDT [facility] MPV 9.1 6.5 - 11.0 07/08/[address] [facility] fL 11:28 AM CDT [facility] NRBC 0.0 % 07/08/[address] [facility] 11:28 AM CDT [facility] ABS NRBC 0.0 thou /cu 07/08/[address] [facility] mm 11:28 AM CDT [facility] Specimen Anatomical Collection Method / Collection Time Recei chantelle Time (Source) Location / Volume Laterality Blood BLOOD SPECIMEN / Venipuncture / 07/08/2022 11:23 07/08 Unknown Unknown AM CDT 11:23 AM CDT Josh Ardon MD HEMATOLOGY Performing Organization Address City/State/ZIP Code Phon e Number [facility] [address] [place], [place] [address] [facility] CLINIC LUTEINIZING HORMONE (07/08/2022 11:23 AM CDT) P athologist Signature LUTEINIZING 5.4 mIU/mL 07/09/2022 [facility] HORMONE 6:05 AM CDT LABORATORY-[facility] TRAL LABORATORY Specimen Anatomical Collection Method / Collection Time Recei chantelle Time (Source) Location / Volume Laterality Blood BLOOD SPECIMEN / Venipuncture / 07/08/2022 11:23 07/08 Unknown Unknown AM CDT 11:23 AM CDT Narrative [facility] LABORATORY-CENTRAL LABORAT ORY - 07/09/2022 6:05 AM CDT ? Female: ??Follicular ? (2.4-6.6) ?Ovulatory Peak ? (9.1-74.2) ?Luteal ? (0.9-9.3) ?Post Menopausal ?(10.4-64.6) ? Male: ? (1.1-8.7) ?? Josh Ardon MD CHEMISTRY Performing Organization Address City/State/ZIP Code Phon e Number [employer] [address] [place] [address] LABORATORY-CENTRAL 2000 LABORATORY T4,FREE (07/08/2022 11:23 AM CDT) P athologist Signature T4,FREE 0.90 0.70 - 1.80 07/09/2022 [facility] ng/dL 1:01 AM CDT LABORATORY-CENTR AL LABORATORY Specimen Anatomical Collection Method / Collection Time Recei chantelle Time (Source) Location / Volume Laterality Blood BLOOD SPECIMEN / Venipuncture / 07/08/2022 11:23 07/08 Unknown Unknown AM CDT 11:23 AM CDT Josh Ardon MD CHEMISTRY Performing Organization Address City/State/ZIP Code Phon e Number [employer] [address] [place] [address] LABORATORY-CENTRAL 2000 LABORATORY FSH (07/08/2022 11:23 AM CDT) P athologist Signature FSH 9.1 mIU/mL 07/09/[address] [facility] 6:07 AM CDT LABORATORY-CENTR AL LABORATORY Specimen Anatomical Collection Method / Collection Time Recei chantelle Time (Source) Location / Volume Laterality Blood BLOOD SPECIMEN / Venipuncture / 07/08/2022 11:23 07/08 Unknown Unknown AM CDT 11:23 AM CDT Narrative [facility] LABORATORY-CENTRAL LABORAT ORY - 07/09/2022 6:07 AM CDT ? Female: ??Follicular ? (3.0-8.1) ?Ovulatory Peak ? (2.6-16.7) ?Luteal ? (1.4-5.5) ?Post Menopausal ?(26.7-133.4) ? Male: ? (1.0-12.0) Josh Ardon MD CHEMISTRY Performing Organization Address City/State/ZIP Code Phon e Number [facility] [address] [place] [address] LABORATORY-CENTRAL 1999 LABORATORY (ABNORMAL) BASIC METABOLIC PANEL (07/08/2022 11:23 AM CDT) Analysis Performed At Patho logist Time Signature SODIUM 138 135 - 145 07/09/2022 [facility] mmol/L 1:05 AM CDT LABORATORY-[facility] TRAL LABORATORY POTASSIUM 4.4 3.5 - 5.0 07/09/2022 [facility] mmol/L 1:05 AM CDT LABORATORY-[facility] TRAL LABORATORY CHLORIDE 104 98 - 110 07/09/2022 [facility] mmol/L 1:05 AM CDT LABORATORY-[facility] TRAL LABORATORY CO2,TOTAL 23 21 - 31 07/09/2022 [facility] mmol/L 1:05 AM CDT LABORATORY-[facility] TRAL LABORATORY ANION GAP 11 5 - 18 07/09/2022 [facility] 1:05 AM CDT LABORATORY-[facility] TRAL LABORATORY GLUCOSE 164 (H) 65 - 100 07/09/2022 [facility] mg/dL 1:05 AM CDT LABORATORY-[facility] TRAL LABORATORY CALCIUM 9.1 8.5 - 10.5 07/09/2022 [facility] mg/dL 1:05 AM CDT LABORATORY-[facility] TRAL LABORATORY BUN 11 8 - 25 07/09/2022 [facility] mg/dL 1:05 AM CDT LABORATORY-[facility] TRAL LABORATORY CREATININE 0.77 0.57 - 07/09/2022 [facility] 1.11 mg/dL 1:05 AM CDT LABORATORY-[facility] TRAL LABORATORY BUN/CREAT RATIO 14 10 - 20 07/09/2022 [facility] 1:05 AM CDT LABORATORY-[facility] TRAL LABORATORY eGFR >90 >90 07/09/2022 [facility] mL/min/1.7 1:05 AM CDT LABORATORY-[facility] 3m2 TRAL [...] Organization Address City/State/ZIP Code Phon e Number [facility] [address] [place] [address] LABORATORY-CENTRAL 2000 LABORATORY ASSEMBLER CRIMPER THIN PREP PAP SCREEN IMAGED (07/08/2022 10:40 AM CDT) Component Value Ref Test Analysis Performed At [facility] gist Range Method Time Signature Case Report Gynecologic Cytology Report ? Case: [id number] ? 07/20/2022 [facility] Authorizing Provider: ??Josh Ardon MD ? Collected: ? 07/08/2022 1040 ? 3:12 PM HEALTH Ordering Location: ? [facility] Received: ?07/08/2022 1235 ? CDT LABOR ATORY-C ? Clinic ? ENTRAL First Screen: ? [facility] ? LABORATORY Specimen: ?ASSEMBLER CRIMPER ThinPrep Vial Screening, Cervical ? INTERPRETATION NEGATIVE [...] LABORATORY Abnormal Pap No 07/20/2022 [facility] or [place] Bx in 3:12 PM HEALTH last 5 years CDT LABORATORY-C ENTRAL LABORATORY Menstrual Regular Periods 07/20/2022 [facility] Status 3:12 PM HEALTH CDT LABORATORY-C ENTRAL LABORATORY [place] Bx Done No 07/20/2022 [facility] Today 3:12 PM HEALTH CDT LABORATORY-C ENTRAL LABORATORY Additional None given 07/20/2022 [facility] Information 3:12 PM HEALTH CDT LABORATORY-C ENTRAL LABORATORY Comment: Cytology is screened at [facility], Central Laboratory - [address], [place] [address] and [facility] - [address], [place] [address] and [facility] - [address] [place] [address] Interpreted at [facility], Central Laboratory - [address], [place] [address] Automated Review Successful 07/20/2022 3:12 PM CDT [facility] LABORATORY-CENTRAL L ABORATORY Comment: Specimen processed successfully by automated refractory bricklayer device, ThinPrep Imaging System, [employer] ANCILLARY TESTING HPV Ordered, 07/20/2022 3:[address] [facility] ASSEMBLER CRIMPER Please see CDT LABORATORY-CENTRAL separate report LABORATORY Note The pap test is a 07/20/2022 3:12 PM [facility] screening CDT LABORATORY-CENTRAL technique, not a [...] Organization Address City/State/ZIP Code Phon e Number [facility] [address] [place] [address] LABORATORY-CENTRAL 2000 LABORATORY HPV HIGH RISK (07/08/2022 10:40 AM CDT) Analysis Performed At Patho logist Time Signature TYPE 16 Negative Negative 07/13/[address] [facility] 2:34 PM CDT LABORATORY-EM[facility] TRAL LABORATORY TYPE 18 Negative Negative 07/13/[address] [facility] 2:34 PM CDT LABORATORY-EMMY TRAL LABORATORY OTHER HIGH Negative Negative 07/13/[address] [facility] RISK TYPES 2:34 PM CDT LABORATORY-EMMY TRAL LABORATORY Specimen Anatomical Collection Method Collection Time Receive d Time (Source) Location / / Volume Laterality Other (Cervical) Non-Blood / 07/08/2022 10:40 022 8:47 Unknown AM CDT AM CDT Narrative [facility] LABORATORY-CENTRAL LABORAT ORY - 07/13/2022 2:34 PM CDT HPV types 16, 18, 31, 33, 35, 39, 45, 51, 52, 56, 58, 59, 66 and 68 DNA were undetectable or below the pre-set threshold. Methodology: [employer] 4800 HPV Test Josh Ardon MD MICROBIOLOGY Performing Organization Address City/[facility]/ZIP Code Phon e Number [facility] [address] [place] [address] LABORATORY-CENTRAL 2000 LABORATORY from Last 3 Months Insurance Payer Benefit Plan / Subscriber ID Effective Dates Phone Addre ss Type Group ARE [facility] [id number] 2021-Present [address] [place] [address] Ermelinda Calderon Personal/Family Self 1995 [address] (Home) [address] [place] [address] Advance Directives Latest Code Status on File Code Status Date Activated Date Inactivated Comments Full Code 03/03/2022 2:50 AM 03/03/2022 12:10 PM Code Status Discussion: Reviewed Preferences Full Code 02/17/2022 7:08 AM 03/01/2022 8:54 PM Code Status Discussion: Reviewed Preferences Full Code 02/16/2022 5:29 PM 02/17/2022 7:08 AM Code Status Discussion: Unable to Assess Preferences, Provid er to review later Care Teams Financial Services Associate Relationship Specialty Start Date End Date Wagner Kaye MD PCP - General Family Practice 08/03/[address] [place] [address] [phone]
--- OUTSIDE RECORDS SUMMARY | 2022-09-24 17:39 | XMS_ITS | Encounter Summary ---
:1995 Author Organization [employer] Address [address], [place] [address] Care Team Providers Name Role Phone Unavailable Primary Care Provider Unavailable Reason for Visit Reason Comments Medication Change Encounter Details Date Type Department Care Team Description 10/09/2021 Telephone [facility] [address] edication Change Endocrinology TMD [address] [place] [address] [address] [place], [place] [phone] (Wo rk) Social History Tobacco Use Types [...] stating she will call back another time. O PLANT TECHNICIAN Tracey Clark, RN - 10/09/2021 1:21 PM CST LVM for pt to call back for below. O PLANT TECHNICIAN Celina Acosta MD - 10/09/2021 12:55 PM CST She can start with just once at night and at 16 units only and follow up with Grisel in 1-[address] she will not have any lows. We will slowly titrate it depending on sugars. Celina Acosta MD Endocrinology Service O PLANT TECHNICIAN Tracey Clark, SAIMA - 10/09/2021 12:33 PM CST Pt calling today questioning new prescription for NPH insulin. She was under the understanding her new long acting insulin was going to be taken at night. She wants to verify she was prescribed the right drug with the right instructions. Reviewed visit note with pt- she still insisted MD be notified of her questions. O PLANT TECHNICIAN documented in this encounter Plan of Treatment Not on filedocumented as of this encounter Visit Diagnoses Not on filedocumented in this encounter
--- OUTSIDE RECORDS SUMMARY | 2022-09-24 17:39 | XMS_ITS | Encounter Summary ---
:1995 Author Organization [employer] Address [address] [place] [address] Care Team Providers Name Role Phone Unavailable Primary Care Provider Unavailable Reason for Visit Reason Comments Diabetes Eye Exam Pt 5 mins late Encounter Details Date Type Department Care Team Description 01/27/2021 Office Visit [place] [address] Rose[address]a Thornton, OD Diabetes mellitus type 2 without retinop athy (HRC) (Primary Dx); Ophthalmology [address] [facility] Examination of eyes [place] visi on; [address] [facility] [address] [place]; [place], [place] Dry eyes [id number] [phone] (Wo rk) Social History Tobacco Use Types Packs/Day Years Used Date Smoking Tobacco: Never Smokeless Tobacco: Never Sex Assigned at Date Recorded Not on file documented as of this encounter Progress Notes Bryanna Whitney, OD - 01/27/2021 1:40 PM CDT General [...]
--- OUTSIDE RECORDS SUMMARY | 2022-09-24 17:39 | XMS_ITS | Encounter Summary ---
:1995 Author Organization [facility] Address [address] [place] [address] Care Team Providers Name Role Phone Unavailable Primary Care Provider Unavailable Reason for Visit Reason Comments LAB RESULTS Encounter Details Date Type Department Care Team Description 01/13/2021 Telephone [facility] [address] Cel[address] , LAB RESULTS Endocrinology [address] [place] [address] [place], [place] [phone] (Wo rk) Social History Tobacco Use Types Packs/Day Years Used Date Smoking Tobacco: Never Smokeless Tobacco: Never Sex Assigned at Date Recorded Not on file documented as of this encounter Nursing Notes Grace Ryan RN - 01/14/2021 1:17 PM CST Called Pt. And relayed message below. Left call back number if Pt. Has any further questions or concerns. OMIC ADVISER Celina Acosta MD - 01/14/2021 12:52 PM CST No metformin -- but may be needed in future if sugars are still high, as planned. Celina Acosta MD Endocrinology Service OMIC ADVISER Colin Marshall RN - 01/13/2021 2:45 PM CST Called Pt. And relayed message below. Pt. Verbalized understanding, agrees with plan, and has no further questions. Pt also wants to know about monitoring of high LDL cholesterol jessi, as well as if Metformin is required at this time. Detailed VM ok per pt. OMIC ADVISER Colin Marshall RN - 01/13/2021 2:45 PM CST ----- Message from Celina Acosta MD sent at 01/13/2021 10:58 AM ECONOMIC ADVISER ----- Please report to Ermelinda that the liver function test returned completely normal and hepatitis panel was negative as well for Hepatitis A, B and C. No further testing is needed. Celina Acosta MD Endocrinology Service OMIC ADVISER documented in this encounter Plan of Treatment Not on filedocumented as of this encounter Visit Diagnoses Not on filedocumented in this encounter
--- OUTSIDE RECORDS SUMMARY | 2022-09-24 17:39 | XMS_ITS | Encounter Summary ---
:1995 Author Organization [facility] Address [address] [place] [address] Care Team Providers Name Role Phone Unavailable Primary Care Provider Unavailable Encounter Details Date Type Department Care Team Description 02/27/2021 Lab Visit [facility] Uncontrolled type 2 diabetes [address] [facility] [place] [address] ([facility]) [phone] Social History Tobacco Use Types Packs/Day Years Used Date Smoking Tobacco: Never Smokeless Tobacco: Never Sex Assigned at Date Recorded Not on file documented as of this encounter Plan of Treatment Not on filedocumented as of this encounter Procedures Procedure Name Priority Date/Time Associated Diagnosis Comme nts LIPASE Routine 02/27/2021 4:38 PM Uncontrolled type 2 Re sults for this CDT diabetes mellitus with proce dure are in hyperglycemia (HRC) the resu lts section. documented in this encounter Results Lipase (02/27/2021 4:38 PM CDT) P athologist Signature Lipase 19 8 - 78 U/L 02/27/2021 [facility] 5:20 PM CDT LABORATORY Specimen Anatomical Collection Method / Collection Time Recei chantelle Time (Source) Location / Volume Laterality Blood Venipuncture / 02/27/2021 4:38 02/27/2021 4:38 Unknown PM CDT PM CDT Celina Acosta MD LAB_1 Performing Organization Address City/State/ZIP Code Phon e Number [facility] [address] [place] [address] documented in this encounter Visit Diagnoses Diagnosis Uncontrolled type 2 diabetes mellitus wi th hyperglycemia (HRC) documented in this encounter
--- OUTSIDE RECORDS SUMMARY | 2022-09-24 17:39 | XMS_ITS | Encounter Summary ---
:1995 Author Organization [facility] Address [address] [place] [address] Care Team Providers Name Role Phone Unavailable Primary Care Provider Unavailable Reason for Referral Consult/Transfer Care (Routine) - Closed Specialty Diagnoses / Procedures Referred By Contact Refer red To Contact Diagnoses Uncontrolled type 2 diabetes mellitus with hyperglycemia (HRC) Celina Acosta MD [address] [place], [place] [address] Referral ID Status Reason Start Date Expiration Date Visits Requ ested Visits Authorized [id number] Closed 05/13/2021 08/12/2022 1 1 Scheduling Instructions Your provider has recommended an appoint ment with [facility]. You may call [phone] to schedule yo ur appointment. We suggest you call your health insurance company about your cove rage and benefits for this appointment. Reason for Visit Reason Comments Follow-up Encounter Details Date Type Department Care Team Description 05/13/2021 Telemedicine [facility] [address] Celina Acosta Unc ontrolled type 2 diabetes mellitus with hyperglycemia (HRC) (Primary Dx); Endocrinology Akash Iqbal MD complicated by pre-existing ty pe 2 diabetes in first trimester; Jolene0 [facility] [address] Obgt sity, unspecified obesity severity, unspecified obesity type [place] [address] [id number] Social History Tobacco Use Types Packs/Day Years [...] documented as of this encounter Progress Notes Wagner Castellanos RN - 05/13/2021 3:00 PM CDT [...] last year or 2 after moving to [place] from [place]. She had polyuria and polydipsia and decided [...] are higher than target range. ASSESSMENT Ermelinda Caledron is a 26 y.o. female with: T2DM [...] documented in this encounter Plan of Treatment Scheduled Referrals Name Type Priority Associated Diagnoses [...]
--- OUTSIDE RECORDS SUMMARY | 2022-09-24 17:39 | XMS_ITS | Encounter Summary ---
:1995 Author Organization [facility] Address [address] [place] [address] Care Team Providers Name Role Phone Unavailable Primary Care Provider Unavailable Reason for Visit Reason Comments Follow-up Encounter Details Date Type Department Care Team Description 06/03/2021 Telephone [facility] 38[address] Sanju Rodríguez , Follow-up Endocrinology [address] [place] [address] [place], [place] [phone] (Wo rk) Social History Tobacco Use Types [...] as of this encounter Progress Notes Lavern Richmond RN - 06/04/2021 9:37 AM CDT Addended [...] mg BID. FU in 3 months. Sanju Iqbal. MD Dave Endocrinology Service Elizabeth Vaca RN - 06/03/2021 [...]
--- OUTSIDE RECORDS SUMMARY | 2022-09-24 17:39 | XMS_ITS | Encounter Summary ---
:1995 Author Organization [facility] Address [address], [place] [address] Care Team Providers Name Role Phone Unavailable Primary Care Provider Unavailable Reason for Visit Reason Onset Date Comments Refill 02/11/2022 Encounter Details Date Type Department Care Team Description 02/11/2022 Refill [facility] 38[address] Jeanette Flynn PA-C Refill Endocrinology [address] [place] [address] [place] [address] [phone] Social History Tobacco Use Types Packs/Day Years [...]
--- OUTSIDE RECORDS SUMMARY | 2022-09-24 17:39 | XMS_ITS | Encounter Summary ---
:1995 Author Organization [employer] [facility] Address [address] [place] [address] Care Team Providers Name Role Phone Unavailable Primary Care Provider Unavailable Reason for Visit Reason Comments LAB RESULTS Encounter Details Date Type Department Care Team Description 03/02/2021 Telephone [facility] [address] Celina Acosta , LAB RESULTS Endocrinology [address] [place] [address] [place] [address] (Wo rk) Social History Tobacco [...]
--- OUTSIDE RECORDS SUMMARY | 2022-09-24 17:39 | XMS_ITS | Encounter Summary ---
:1995 Author Organization [facility] Address [address] [place] [address] Care Team Providers Name Role Phone Unavailable Primary Care Provider Unavailable Encounter Details Date Type Department Care Team Description 09/24/2022 Telephone [facility] [address] Celina Acosta , Endocrinology [address] [place] [address] [place] [address] (Wo rk) Social History Tobacco [...] documented as of this encounter Nursing Notes Celina Acosta MD - 09/24/2022 5:04 PM CST Ermelinda can increase dose to 0.5 mg after the first 2 dose of 0.25 mg weekly. Celina Acosta MD Endocrinology Service EN PRINTER HELPER Tiarra Pierce RN - 09/24/2022 2:10 PM CST Patient calling; she is wondering how long she should stay at the 0.25 mg dose of Ozemipc and how she should manage high blood sugars while taking Ozempic. Please advise EN PRINTER HELPER documented in this encounter Plan of Treatment Not on filedocumented as of this encounter Visit Diagnoses Diagnosis Uncontrolled type 2 diabetes mellitus wi th hyperglycemia (HRC) documented in this encounter
--- OUTSIDE RECORDS SUMMARY | 2022-09-24 17:39 | XMS_ITS | Encounter Summary ---
:1995 Author Organization [facility] Address [address] [place] [address] Care Team Providers Name Role Phone Unavailable Primary Care Provider Unavailable Reason for Visit Reason Comments Blood Glucose Readings Encounter Details Date Type Department Care Team Description 10/13/2021 Telephone [facility] [address] lood Glucose Readings Brian Iqbal MD [address] [facility] [place] [address] [phone] (Wo rk) Social History Tobacco Use Types [...] LVM on Pt's recording with message below. BOILER Celina Acosta MD - 10/15/2021 2:37 PM CST Please set visit with me or one of our PA. In the mean time, increase Humulin to 18 units, novolog to 14 units per meal. Celina Acosta MD Endocrinology Service BOILER Lavern Santos RN - 10/13/2021 3:58 PM CST Pt called to report high blood sugars. Novolog 12 units with each meal Humulin 16 units in PM 10/13 after breakfast 162, before lunch 153 12/ bedtime 161, 185 12/ before lunch 125, after lunch 148 These are the only readings Pt had at time of her call. Nurse: Can leave a detailed VM. BOILER documented in this encounter Plan of Treatment Not on filedocumented as of this encounter Visit Diagnoses Not on filedocumented in this encounter
--- OUTSIDE RECORDS SUMMARY | 2022-09-24 17:39 | XMS_ITS | Encounter Summary ---
:1995 Author Organization [facility] Address [address] [place] [address] Care Team Providers Name Role Phone Unavailable Primary Care Provider Unavailable Reason for Visit Reason Comments Referral Patient Calling Back Encounter Details Date Type Department Care Team Description 01/13/2021 Telephone Alyson Alves Pcp, Referral; [facility] Ophthalmology Assignment Calling Back [address] [place] [address] [place], [place] [phone] Social History Tobacco Use Types Packs/Day Years Used Date Smoking Tobacco: Never Smokeless Tobacco: Never Sex Assigned at Date Recorded Not on file documented as of this encounter Nursing Notes Yany Langston - 01/13/2021 1:38 PM CST Made a CEDM check with TS ACE MINER Emilee Johnson - 01/13/2021 1:17 PM CST Pt calling back ACE MINER Renetta Linton COT - 01/13/2021 10:19 AM CST LMTCB ACE MINER Isabela [place]herty - 01/13/2021 10:14 AM CST Patient has referral for eye pain and halos. ACE MINER documented in this encounter Plan of Treatment Not on filedocumented as of this encounter Visit Diagnoses Not on filedocumented in this encounter
--- OUTSIDE RECORDS SUMMARY | 2022-09-24 17:39 | XMS_ITS | Encounter Summary ---
:1995 Author Organization [facility] Address [address] [place] [address] Care Team Providers Name Role Phone Unavailable Primary Care Provider Unavailable Reason for Visit Reason Comments Medication Questions Encounter Details Date Type Department Care Team Description 01/12/2021 Telephone [facility] [address] Celina Acosta edication Questions Endocrinology MD Rasheed 3800 [facility] [address] [facility] [phone] (Wo rk) Social History Tobacco Use Types Packs/Day Years Used Date Smoking Tobacco: Never Smokeless Tobacco: Never Sex Assigned at Date Recorded Not on file documented as of this encounter Nursing Notes Nelli Serrano RN - 01/14/2021 10:44 AM CST Called pt; left a detailed vm (see ok to leave msg below) outlining message below. Wagner Schumacher RN - 01/12/2021 4:05 PM CST Images from the original note were not included. Celina Acosta MD Endo Pn Nursing Team 1 Bydureon was sent to [facility]. Metformin: We planned not to start this at this time given the risk of side effects of starting 2 medications. She should start Bydureon and stop the insulin as discussed. If the sugars are higher, call clinic with BG report and we will plan to add Metformin. Thanks RTS Left message requesting patient return call for provider recommendations above. ERIES MANAGEMENT BIOLOGIST Grace Ryan RN - 01/12/2021 1:28 PM CST Patient calling requesting prescription for metformin and bydureon. Scripts not previously filled byour mansi, RN unable to sign. Pt. States she is not sure what doses and when to take these medications, please advise and order asindicated. Thank you NURSE: okay to LVM ERIES MANAGEMENT BIOLOGIST documented in this encounter Plan of Treatment Not on filedocumented as of this encounter Visit Diagnoses Not on filedocumented in this encounter
--- OUTSIDE RECORDS SUMMARY | 2022-09-24 17:39 | XMS_ITS | Encounter Summary ---
:1995 Author Organization [facility] Address [address] [place] [address] Care Team Providers Name Role Phone Unavailable Primary Care Provider Unavailable Encounter Details Date Type Department Care Team Description 01/12/2021 Lab Visit [facility] Uncontrolled type 2 diabetes [address] [facility] mellitus [place] [address] ([facility]) [phone] Social History Tobacco Use Types Packs/Day Years [...] Results for this WITH REFLEX TO PM PROTOTYPE SEWER diabetes mellitus procedur e are in CONFIRMATION with hyperglycemia the [facility] ([facility]) section. LIVER PANEL(HEPATIC Routine 01/12/2021 12:13 Uncontrolled type 2 Results for this FUNCTION PANEL) PM PROTOTYPE SEWER diabetes mellitus procedu re are in with hyperglycemia the [facility] ([facility]) section. documented in this encounter Results Hepatitis Panel with Reflex to Confirmation (01/12/2021 12:13 PM PROTOTYPE SEWER) [facility] Method Time Signature Hepatitis A Negative Negative 01/12/2021 [facility] Antibody, IgM (Non (Non 8:06 PM [facility] Reactive) Reactive) Comment: IgM anti-HAV not detected. Does not exclude the possibility of exposure to or infection with HAV. Levels of IgM ant i-HAV may be below the cut-off in early infection. Hepatitis Bc Negative (Non Negative 01/12/2021 8:[address] Antibody,IgM Reactive) (Non-Reactive) PM PR[facility]OTYPE [facility]ER [facility] Comment: IgM anti-HBc not detected. Does not exclude the possibility of exposure to or infection with HBV. Hepatitis B Negative (Non Negative (Non 01/12/2021 8:06 [facility] Surface Antigen Reactive) Reactive) PM PR[facility] Hepatitis C Negative (Non Negative (Non 01/12/2021 8:06 [facility] Antibody Reactive) Reactive) PM [facility]OTYPE [facility]ER [facility] Comment: Antibodies to HCV not detected. Does not exclude the possiblity of exposure to HCV. Specimen Anatomical Collection Method / Collection Time Recei chantelle Time (Source) Location / Volume Laterality Blood Venipuncture / 01/12/2021 12:13 1 Unknown PM PROTOTYPE SEWER 12:13 PM PROTOTYPE SEWER Celina Acosta MD LAB_1 Performing Organization Address City/State/[facility] Code Phon e Number [facility] [address] [place] [address] (ABNORMAL) Hepatic Function Panel (01/12/2021 12:13 PM PROTOTYPE SEWER) [facility] Method Time Signature Alkaline 91 40 - 150 01/12/2021 [place] Phosphatase U/L 3:05 PM PROTOTYPE [facility]WER LAB[facility] Bilirubin, Total 0.2 0.2 - 1.2 01/12/2021 [place] mg/dL 3:05 PM PROTOTYPE SEWER LAB[facility] Bilirubin, 0.1 0.0 - 0.5 01/12/2021 [place] Direct mg/dL 3:05 PM PR[facility]OTYPE [facility]ER [facility] AST (SGOT) 21 10 - 40 01/12/2021 [place] U/L 3:05 PM PROTOTYPE [facility]WER LAB[facility] ALT (SGPT) 26 0 - 55 U/L 01/12/2021 [place] 3:05 PM PR[facility]OTYPE [facility]WER LAB[facility] Protein, Total 6.7 6.4 - 8.3 01/12/2021 [place] g/dL 3:05 PM PROTOTYPE SEWER LAB[facility] Albumin 3.1 (L) 3.5 - 5.0 01/12/2021 [place] g/dL 3:05 PM PROTOTYPE SEWER LAB[facility] Specimen Anatomical Collection Method / Collection Time Recei chantelle Time (Source) Location / Volume Laterality Blood Venipuncture / 01/12/2021 12:13 1 Unknown PM PROTOTYPE SEWER 12:13 PM PROTOTYPE SEWER Celina Acosta MD LAB_1 Performing Organization Address City/State/ZIP Code Phon e Number [facility] [address] [place] [address] documented in this encounter Visit Diagnoses Diagnosis Uncontrolled type 2 diabetes mellitus wi th hyperglycemia (HRC) documented in this encounter
--- OUTSIDE RECORDS SUMMARY | 2022-09-24 17:39 | XMS_ITS | Encounter Summary ---
:1995 Author Organization [facility] Address [address] [place] [address] Care Team Providers Name Role Phone Unavailable Primary Care Provider Unavailable Reason for Referral Consult/Transfer Care (Routine) - Closed Specialty Diagnoses / Procedures Referred By Contact Refer red To Contact Diagnoses Eye pain, bilateral Sanju Rodríguez MD [address] [place], [place] [address] Referral ID Status Reason Start Date Expiration Date Visits Requ ested Visits Authorized [id number] Closed 01/12/2021 04/13/2022 1 1 Scheduling Instructions Your provider has recommended an appoint ment with [facility]. You may call [phone] to schedule your appoi ntment. RAM COORDINATOR EXECUTIVE EDUCATION Reason for Visit Reason Comments Diabetes Encounter Details Date Type Department Care Team Description 01/12/2021 Office Visit Sanju Donovan Uncontrol led type 2 diabetes mellitus with hyperglycemia (HRC) (Primary Dx); Brian Iqbal MD Eye pain, bilateral [address] [place] [address] vd [phone] [place] [address] Social History Tobacco Use Types Packs/Day Years Used Date Smoking Tobacco: Never Smokeless Tobacco: Never Sex Assigned at Date Recorded Not on file documented as of this encounter Last Filed Vital Signs Vital Sign Reading Time Taken Comments Blood Pressure 127/96 01/12/2021 11:21 AM PROGRAM COORDINATOR EXECUTIVE EDUCATION Pulse 79 01/12/2021 11:21 AM PROGRAM COORDINATOR EXECUTIVE EDUCATION Temperature - - Respiratory Rate - - Oxygen Saturation - - Inhaled Oxygen Concentration - - Weight 87.1 kg (192 lb 1.6 oz) 01/12/2021 11:21 AM PROGRAM COORDINATOR EXECUTIVE EDUCATION Height 165.1 cm (5' 5) 01/12/2021 11:21 AM PROGRAM COORDINATOR EXECUTIVE EDUCATION Body Mass Index 31.97 01/12/2021 11:21 AM PROGRAM COORDINATOR EXECUTIVE EDUCATION documented in this encounter Patient Instructions Patient InstructionsShSanju bucio MD - 01/12/2021 11:00 AM PROGRAM COORDINATOR EXECUTIVE EDUCATION Stop Lantus and before meal Humalog after [...] use 8 units and call your doctor RAM COORDINATOR EXECUTIVE EDUCATION documented in this encounter Progress Notes Sanju Rodríguez MD - 01/12/2021 11:00 AM PROGRAM COORDINATOR EXECUTIVE EDUCATION Addended by: SANJU RODRÍGUEZ on: 01/12/2021 03:54 PM Modules accepted: Orders RAM COORDINATOR EXECUTIVE EDUCATION Sanju Rodríguez MD - 01/12/2021 11:00 AM [...] or 2 after moving to [place] from [place]. She had polyuria and polydipsia and decided [...] or 2 after moving to [place] from [place]. She had polyuria and polydipsia and decided [...] / SH / MED / ALL in [facility]. OBJECTIVE BP (!) 127/96 (BP [...] 12/29/2020 Hemoglobin A1C, POCT 10.5 (A) 12/29/2020 RAM COORDINATOR EXECUTIVE EDUCATION documented in this encounter Plan of Treatment Scheduled Referrals Name Type Priority Associated Diagnoses Order S chedule Ophthalmology Referral Routine Eye pain, bilateral Ordered : 01/12/2021 Consult-Adult/Peds documented as of this encounter Results Hepatitis Panel with Reflex to Confirmation (01/12/2021 12:13 PM PROGRAM COORDINATOR EXECUTIVE EDUCATION) [facility] Method Time Signature Hepatitis A Negative Negative 01/12/2021 [facility] Antibody, IgM (Non (Non 8:06 PM PROGRAM COORDINATOR EXECUTIVE EDUCATION LABORATORY Reactive) Reactive) Comment: IgM anti-HAV not detected. Does not exclude the possibility of exposure to or infection with HAV. Levels of IgM ant i-HAV may be below the cut-off in early infection. Hepatitis Bc Negative (Non Negative 01/12/2021 8:[address] Antibody,IgM Reactive) (Non-Reactive) PM PROGRAM COORDINATOR EXECUTIVE EDUCATION LABORATORY Comment: IgM anti-HBc not detected. Does not exclude the possibility of exposure to or infection with HBV. Hepatitis B Negative (Non Negative (Non 01/12/2021 8:06 [facility] Surface Antigen Reactive) Reactive) PM PROGRAM COORDINATOR EXECUTIVE EDUCATION LABORATORY Hepatitis C Negative (Non Negative (Non 01/12/2021 8:06 [facility] Antibody Reactive) Reactive) PM PROGRAM COORDINATOR EXECUTIVE EDUCATION LABORATORY Comment: Antibodies to HCV not detected. Does not exclude the possiblity of exposure to HCV. Specimen Anatomical Collection Method / Collection Time Recei chantelle Time (Source) Location / Volume Laterality Blood Venipuncture / 01/12/2021 12:13 Unknown PM PROGRAM COORDINATOR EXECUTIVE EDUCATION 12:13 PM PROGRAM COORDINATOR EXECUTIVE EDUCATION Sanju Rodríguez MD LAB_1 Performing Organization Address City/State/ZIP Code Phon e Number [facility] [address] [place] [address] (ABNORMAL) Hepatic Function Panel (01/12/2021 12:13 PM PROGRAM COORDINATOR EXECUTIVE EDUCATION) [facility] Method Time Signature Alkaline 91 40 - 150 01/12/2021 [place] Phosphatase U/L 3:05 PM PROGRAM COORDINATOR EXECUTIVE EDUCATION LABORATORY Bilirubin, Total 0.2 0.2 - 1.2 01/12/2021 [place] mg/dL 3:05 PM PROGRAM COORDINATOR EXECUTIVE EDUCATION LABORATORY Bilirubin, 0.1 0.0 - 0.5 01/12/2021 [place] Direct mg/dL 3:05 PM PROGRAM COORDINATOR EXECUTIVE EDUCATION LABORATORY AST (SGOT) 21 10 - 40 01/12/2021 [place] U/L 3:05 PM PROGRAM COORDINATOR EXECUTIVE EDUCATION LABORATORY ALT (SGPT) 26 0 - 55 U/L 01/12/2021 [place] 3:05 PM PROGRAM COORDINATOR EXECUTIVE EDUCATION LABORATORY Protein, Total 6.7 6.4 - 8.3 01/12/2021 [place] g/dL 3:05 PM PROGRAM COORDINATOR EXECUTIVE EDUCATION LABORATORY Albumin 3.1 (L) 3.5 - 5.0 01/12/2021 [place] g/dL 3:05 PM PROGRAM COORDINATOR EXECUTIVE EDUCATION LABORATORY Specimen Anatomical Collection Method / Collection Time Recei chantelle Time (Source) Location / Volume Laterality Blood Venipuncture / 01/12/2021 12:13 1 Unknown PM PROGRAM COORDINATOR EXECUTIVE EDUCATION 12:13 PM PROGRAM COORDINATOR EXECUTIVE EDUCATION Sanju Rodríguez MD LAB_1 Performing Organization Address City/State/ZIP Code Phon e Number [facility] [address] [place] [address] documented in this encounter Visit Diagnoses Diagnosis Uncontrolled type 2 diabetes mellitus wi th hyperglycemia (HRC) - Primary Eye pain, bilateral documented in this encounter
--- OUTSIDE RECORDS SUMMARY | 2022-09-24 17:39 | XMS_ITS | Encounter Summary ---
:1993 Author Organization [facility] Address [address] [place] [address] Care Team Providers Name Role Phone Unavailable Primary Care Provider Unavailable Reason for Referral Consult/Transfer Care (Routine) - New Request Specialty Diagnoses / Procedures Referred By Contact Refer red To Contact Diagnoses Uncontrolled type 2 diabetes mellitus with hyperglycemia (HRC) Obesity, unspecified obesity severity, unspecified obesity type (HRC) Celina Acosta MD [address] [place], [place] [address] Referral ID Status Reason Start Date Expiration Date Visits V isits Requested Authorized [id number] New Request 09/30/2021 12/30/2022 1 1 Scheduling Instructions Your provider has recommended an appoint ment with [facility]. You may call [phone] to schedule yo ur appointment. We suggest you call your health insurance company about your cove rage and benefits for this appointment. LITY ARCHITECT MANAGER Encounter Details Date Type Department Care Team Description 09/30/2021 Telemedicine [facility] [address] Celina Acosta Unc ontrolled type 2 diabetes mellitus with hyperglycemia (HRC) (Primary Dx); Endocrinology Akash Iqbal MD Obesity, unspecified obesity severity, u nspecified obesity type [address] [place] [address] [phone] Social History Tobacco Use Types Packs/Day Years [...] InstructionsShCelina bucio MD - 09/30/2021 3:00 PM MOBILITY ARCHITECT MANAGER Switch to NPH. Fasting glucose should be less than 95 Novolog 10 units per meal. Post meal At 1 hour should be less than 140 Learn carb count - closely work with CDE, FARZANA teams to closely follow progress. LITY ARCHITECT MANAGER documented in this encounter Progress Notes Celina [...] last year or 2 after moving to [place] from [place]. She had polyuria and polydipsia and decided [...] (H) 12/29/2020 Hemoglobin A1C 10.5 (A) 12/29/2020 LITY ARCHITECT MANAGER documented in this encounter Plan of Treatment [...]
--- OUTSIDE RECORDS SUMMARY | 2022-09-24 17:39 | XMS_ITS | Encounter Summary ---
:1995 Author Organization [email or web address] Address [address] [place] [address] Care Team Providers Name Role Phone Unavailable Primary Care Provider Unavailable Reason for Visit Reason Comments Other Encounter Details Date Type Department Care Team Description 02/27/2021 Telephone [facility] [address] Celina Acosta , Other Endocrinology [address] [place] [address] [place], [place] [phone] (Wo rk) Social History Tobacco Use Types [...] day. Celina Acosta MD Endocrinology Service Wagner Castellanos RN - 02/27/2021 1:17 PM CDT Pt [...] Not on filedocumented as of this encounter Results Lipase (02/27/2021 4:38 PM CDT) P athologist Signature Lipase 19 8 - 78 U/L 02/27/2021 [facility] 5:20 PM CDT LABORATORY Specimen Anatomical Collection Method / Collection Time Recei chantelle Time (Source) Location / Volume Laterality Blood Venipuncture / 02/27/2021 4:38 02/27/2021 4:38 Unknown PM CDT PM CDT Celina Acosta MD LAB_1 Performing Organization Address City/State/ZIP Code Phon e Number [facility] [address] [place] [address] documented in this encounter Visit Diagnoses Diagnosis Uncontrolled type 2 diabetes mellitus wi th hyperglycemia (HRC) - Primary documented in this encounter
--- OUTSIDE RECORDS SUMMARY | 2022-09-24 17:39 | XMS_ITS | Encounter Summary ---
:1995 Author Organization [facility] Address [address] [place] [address] Care Team Providers Name Role Phone Unavailable Primary Care Provider Unavailable Reason for Visit Reason Comments Appt. Needed Encounter Details Date Type Department Care Team Description 12/30/2020 Telephone [facility] [address] Celina Acosta , Appt. Needed Endocrinology [address] [place] [address] [place] [address] [phone] (Wo rk) Social History Tobacco Use Types Packs/Day Years Used Date Smoking Tobacco: Never Smokeless Tobacco: Never Sex Assigned at Date Recorded Not on file documented as of this encounter Nursing Notes Evangelina Smith - 12/30/2020 12:13 PM CST LVM to schedule 4 week f/u with Dr. Acosta ING COACH documented in this encounter Plan of Treatment Not on filedocumented as of this encounter Visit Diagnoses Not on filedocumented in this encounter
--- OUTSIDE RECORDS SUMMARY | 2022-09-24 17:39 | XMS_ITS | Encounter Summary ---
:1995 Author Organization [facility] Address [address] [place] [address] Care Team Providers Name Role Phone Unavailable Primary Care Provider Unavailable Reason for Visit Reason Comments LAB RESULTS Encounter Details Date Type Department Care Team Description 01/06/2021 Telephone [facility] [address] Celina Acosta , LAB RESULTS Endocrinology [address] [place] [address] [place] [address] (Wo rk) Social History Tobacco Use Types Packs/Day Years Used Date Smoking Tobacco: Never Smokeless Tobacco: Never Sex Assigned at Date Recorded Not on file documented as of this encounter Nursing Notes Colin Marshall RN - 01/06/2021 4:21 PM CST Called Pt. And relayed message below. Pt. Verbalized understanding, agrees with plan, and has no further questions. UIT BOARD INSPECTOR Colin Marshall RN - 01/06/2021 4:17 PM CST ----- Message from Celina Acosta MD sent at 01/06/2021 3:54 PM CIRCUIT BOARD INSPECTOR ----- Please report to Ms. Calderon that [...] medication changes. Celina Acosta MD Endocrinology Service UIT BOARD INSPECTOR documented in this encounter Plan of Treatment Not on filedocumented as of this encounter Visit Diagnoses Not on filedocumented in this encounter
--- OUTSIDE RECORDS SUMMARY | 2022-09-24 17:39 | XMS_ITS | Encounter Summary ---
:1995 Author Organization [email or web address] Address [address] [place] [address] Care Team Providers Name Role Phone Unavailable Primary Care Provider Unavailable Reason for Visit Reason Comments Appt. Needed 4W f/u w/APC Encounter Details Date Type Department Care Team Description 05/14/2021 Telephone [facility] [address] Celina Acosta ppt. Needed (4W f/u Endocrinology T, w/APC) [address] [place] [facility] [address] [facility] 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
--- OUTSIDE RECORDS SUMMARY | 2022-09-24 17:39 | XMS_ITS | Encounter Summary ---
:1995 Author [facility] Address [address] [place] [address] Care Team Providers Name Role Phone Unavailable Primary Care Provider Unavailable Reason for Visit Reason Onset Date Comments Medication Questions 04/01/2021 Isaac Encounter Details Date Type Department Care Team Description 04/01/2021 Telephone [facility] [address] Sanju Rodríguez edication Questions Endocrinology MD [facility] [address] [facility] [address] [facility] [place] [address] [phone] (Wo rk) Social History Tobacco Use Types [...] Thank you. Please see telephone encounter 02/27/21 [facility]--Anton PH: [phone] documented in this encounter Plan of Treatment Not on filedocumented as of this encounter Visit Diagnoses Not on filedocumented in this encounter
--- OUTSIDE RECORDS SUMMARY | 2022-09-24 17:40 | XMS_ITS | Encounter Summary ---
:1995 Author Organization [facility] Address [address] [place] [address] Care Team Providers Name Role Phone Unavailable Primary Care Provider Unavailable Encounter Details Date Type Department Care Team Description 12/29/2020 Lab Visit [facility] Uncontrolled type 2 diabetes [address] [facility] [place] [address] ([facility]) [phone] Social History Tobacco Use Types Packs/Day Years [...] medication changes. Celina Acosta MD Endocrinology Service [employer] DRIVER documented in this encounter Plan of Treatment Not on filedocumented as of this encounter Procedures Procedure Name Priority Date/Time Associated Diagnosis Comme nts ALBUMIN/CREAT RATIO Routine 12/29/2020 2:51 Uncontrolled type 2 Results for this PM [employer] diabetes mellitus procedure are in with hyperglycemia the resul ts ([facility]) section. ISLET CELL IGG Routine 12/29/2020 2:32 Uncontrolled type 2 Res ults for this ANTIBODY PM [employer] diabetes mellitus procedure are in with hyperglycemia the [facility] ts ([facility]) section. INSULIN ANTIBODIES Routine 12/29/2020 2:32 Uncontrolled type 2 Results for this PANEL PM [employer] diabetes mellitus procedure are in with hyperglycemia the resul ts ([facility]) section. GLUTAMIC ACID Routine 12/29/2020 2:32 Uncontrolled type 2 Resu lts for this DECARBOXYLASE PM [employer] diabetes mellitus procedure are in ANTIBODY with hyperglycemia the resul ts ([facility]) section. C-PEPTIDE, SERUM Routine 12/29/2020 2:32 Uncontrolled type 2 R esults for this PM [employer]IVER diabetes mellitus procedure are in with hyperglycemia the resul ts ([facility]) section. 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 LDL CHOLESTEROL, Routine 12/29/2020 2:32 Uncontrolled type 2 R esults for this DIRECT MEASURED PM [employer]IVER diabetes mellitus procedu re are in with hyperglycemia the resul ts ([facility]) section. BASIC METABOLIC PANEL Routine 12/29/2020 2:32 Uncontrolled typ e 2 Results for this PM [employer] diabetes mellitus procedure are in with hyperglycemia the resul ts ([facility]) section. TSH, SENSITIVE (WITH Routine 12/29/2020 2:32 Uncontrolled type 2 Results for this REFLEX) PM [employer] diabetes mellitus procedure are in with hyperglycemia the resul ts ([facility]) section. HGB A1C Routine 12/29/2020 2:32 Uncontrolled type 2 Resul ts for this PM [employer] diabetes mellitus procedure are in with hyperglycemia the resul ts ([facility]) section. 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 documented in this encounter Results Microalbumin/Creatinine Ratio (12/29/2020 2:51 PM [employer] DRIVER) P athologist Signature Albumin, 27.4 mg/L 12/29/2020 [facility] Urine, Random 4:45 PM [employer] Creatinine, 165 >20 mg/dL 12/29/2020 [facility] Urine, Random 4:45 PM [employer] Albumin/Creati 17 <30 mg/g 12/29/2020 [facility] nine Ratio, 4:45 PM [employer] Urine, Random Specimen Anatomical Collection Method Collection Time Receive d Time (Source) Location / / Volume Laterality Urine Non-blood 12/29/2020 2:51 PM 2:51 Collection / [employer] DRIVER PM [employer] DRIVER Unknown Celina Acosta MD LAB_1 Performing Organization Address [facility] Phon e Number [facility] [address] [place] [phone] (ABNORMAL) ALT (SGPT) (12/29/2020 2:32 PM [employer] DRIVER) P athologist Signature ALT (SGPT) 61 (H) 0 - 55 U/L 12/29/2020 [facility] 4:19 PM [employer] Specimen Anatomical Collection Method / Collection Time Recei chantelle Time (Source) Location / Volume Laterality Blood Venipuncture / 12/29/2020 2:32 12/29/2020 2:32 Unknown PM [employer] DRIVER PM [employer] DRIVER Celina Acosta MD LAB_1 Performing Organization Address [facility] Phon e Number [facility] [address] [place], [place] [phone] TSH with Free T4 (if TSH Abnormal) (12/29/2020 2:32 PM [employer] DRIVER) P athologist Signature TSH, Reflex 2.39 0.30 - 4.50 12/29/2020 [facility] uIU/mL 7:10 PM [employer] Specimen Anatomical Collection Method / Collection Time Recei chantelle Time (Source) Location / Volume Laterality Blood Venipuncture / 12/29/2020 2:32 12/29/2020 2:32 Unknown PM [employer] DRIVER PM [employer] DRIVER Narrative [facility] - 12/29/2020 7:10 P M [employer] DRIVER Lab will automatically reflex to Free T4 when TSH results are <0.30 uIU/mL or >4.50 mIU/mL. Celina Acosta MD LAB_1 Performing Organization Address City/State/ZIP Code Phon e Number [facility] [address] [place] [address] (ABNORMAL) Hgb A1C (12/29/2020 2:32 PM [employer] DRIVER) [facility] Method Time Signature Hemoglobin A1C 11.5 (H) <=5.6 % 12/30/2020 [facility] 12:24 PM [employer] DRIVER CENTRAL LAB Specimen Anatomical Collection Method / Collection Time Recei chantelle Time (Source) Location / Volume Laterality Blood Venipuncture / 12/29/2020 2:32 12/29/2020 2:32 Unknown PM [employer] DRIVER PM [employer] DRIVER Narrative [facility] - 12/30/2020 12:24 PM [employer] DRIVER For patients not previously diagnosed with diabetes: 5.7-6.4%: Increased risk for diabetes 6.5% and greater: Diagnostic for diabete s For patients diagnosed with diabetes: <8.0%: Goal of therapy for ages 18-75 Clinicians may recommend a higher or low er goal for specific individuals. Celina Acosta MD LAB_1 Performing Organization Address City/[facility]/ZIP Code Phon e Number [facility] C[facility]TRAL [facility] [address] [address] Vitamin B12 Only (12/29/2020 2:32 PM [employer] DRIVER) athologist Signature Vitamin B12 680 213 - 816 12/29/2020 [facility] pg/mL 7:10 PM [employer] [facility] Specimen Anatomical Collection Method / Collection Time Recei chantelle Time (Source) Location / Volume Laterality Blood Venipuncture / 12/29/2020 2:32 12/29/2020 2:32 Unknown PM [employer] DRIVER PM [employer] DRIVER Celina Acosta MD LAB_1 Performing Organization Address City/[facility]/ZIP Code Phon e Number [facility] [address] [place] [address] CK, Total (12/29/2020 2:32 PM [employer] DRIVER) athologist Signature CK, Total 75 29 - 168 12/29/2020 [place] U/L 4:19 PM [employer]IVER LAB[facility]ORY Specimen Anatomical Collection Method / Collection Time Recei chantelle Time (Source) Location / Volume Laterality Blood Venipuncture / 12/29/2020 2:32 12/29/2020 2:32 Unknown PM [employer] DRIVER PM [employer] DRIVER Celina Acosta MD LAB_1 Performing Organization Address [facility]/ZIP Code Phon e Number [facility] [address] [place] [address] (ABNORMAL) LDL Cholesterol, Direct Measured (12/29/2020 2:32 PM [employer] DRIVER) P athologist Signature LDL, Direct 160 (H) <=130 12/29/2020 [facility] mg/dL 4:19 PM [employer] Specimen Anatomical Collection Method / Collection Time Recei chantelle Time (Source) Location / Volume Laterality Blood Venipuncture / 12/29/2020 2:32 12/29/2020 2:32 Unknown PM [employer] DRIVER PM [employer] DRIVER Celina Acosta MD LAB_1 Performing Organization Address [facility]/ZIP Code Phon e Number [facility] [address] [place] [address] (ABNORMAL) Basic Metabolic Panel (12/29/2020 2:32 PM [employer] DRIVER) Analysis Performed At Patho logist Time Signature Sodium 137 136 - 145 12/29/2020 [facility] mmol/L 4:19 PM [employer] LAB[facility]ORY Potassium 3.8 3.5 - 5.1 12/29/2020 [facility] mmol/L 4:19 PM [employer] Chloride 105 98 - 109 12/29/2020 [facility] mmol/L 4:19 PM [employer] CO2 24 20 - 29 12/29/2020 [facility] mmol/L 4:19 PM [employer] Anion Gap 8 7 - 16 12/29/2020 [facility] mmol/L 4:19 PM [employer] Calcium 8.9 8.4 - 10.4 12/29/2020 [facility] mg/dL 4:19 PM [employer] BUN 11 7 - 26 12/29/2020 [facility] mg/dL 4:19 PM [employer] [facility] Creatinine 0.60 0.55 - 12/29/2020 [facility] 1.02 mg/dL 4:19 PM [employer] GFR, Est If >60 >60 12/29/2020 [facility] mL/min/1.7 4:19 PM [employer] DRIVER LABORATORY Singaporean 3m2 Glucose 273 (H) 70 - 100 12/29/2020 [facility] mg/dL 4:19 PM [employer] Comment: The given reference range is fo r the fasting state. Non-fasting reference range for glucose is 70 - 180 mg/dL. Hours Fasting 2 12/29/2020 4:[address] [employer] [employer] [address] [facility] Specimen Anatomical Collection Method / Collection Time Recei chantelle Time (Source) Location / Volume Laterality Blood Venipuncture / 12/29/2020 2:32 12/29/2020 2:32 Unknown PM [employer] DRIVER PM [employer] DRIVER Celina Acosta MD LAB_1 Performing Organization Address City/[facility] Phon e Number [facility] [address] [place] [address] C-Peptide, Serum or Plasma (12/29/2020 2:32 PM [employer] DRIVER) athologist Signature C-Peptide 2.2 0.8 - 3.5 12/31/2020 [facility] ng/mL 2:38 PM [employer] DRIVER Comment: INTERPRETIVE INFORMATION: C-Peptide, Ser um or Plasma Reference Interval applies to fasting sp ecimens. To convert to nmol/L, multiply by 0.33 Performed By: [facility] [address] [place] [address] Game Operator: Yaneli Lopez MD Specimen Anatomical Collection Method / Collection Time Recei chantelle Time (Source) Location / Volume Laterality Blood Venipuncture / 12/29/2020 2:32 12/29/2020 2:32 Unknown PM [employer] DRIVER PM [employer] DRIVER Celina Acosta MD LAB_1 Performing Organization Address City/[facility] Phon e Number [facility] [address] [place] [phone] Islet Cell IGG Antibody (12/29/2020 2:32 PM [employer] DRIVER) P athologist Signature Islet Cell <1:4 <1:4 12/31/2020 [facility] Antibody 5:20 PM [employer] DR[facility] LAB[facility]IES Comment: INTERPRETIVE INFORMATION: Islet Cell Ab, [...] and its performa nce characteristics determined by [facility]. It has not been cleared or approved by the [place] Food and Drug Adminis tration. This test was performed in a CLIA certified laboratory and is intended for clinical purposes. Performed By: [facility] [address] [place] [id number] Game Operator: Yaneli Lopez MD Specimen Anatomical Collection Method / Collection Time Recei chantelle Time (Source) Location / Volume Laterality Blood Venipuncture / 12/29/2020 2:32 12/29/2020 2:32 Unknown PM [employer] DRIVER PM [employer] DRIVER Celina Acosta MD LAB_1 Performing Organization Address City/State/ZIP Code Phon e Number [facility] [address] [place], [place] [phone] IA-2 Antibody (12/29/2020 2:32 PM [employer] DRIVER) athologist Signature IA-2 Antibody <5.4 0.0 - 7.4 01/02/2021 [facility] U/mL 11:01 AM [employer] LAB[facility]ATORIES Comment: INTERPRETIVE INFORMATION: Islet Antigen- 2 (IA-2) ?A utoantibody, Serum A value greater than or equal to 7.5 Uni ts/mL is considered positive for IA-2 autoantibodies. This assay is intended for the quantitat tani determination of autoantibodies to Islet Antigen-2 (IA-2) in human serum. Results should be interpreted within the context of clinical symptoms. Performed By: [facility] [address] [place] [id number] Game Operator: Yaneli Lopez MD Specimen Anatomical Collection Method / Collection Time Recei chantelle Time (Source) Location / Volume Laterality Blood Venipuncture / 12/29/2020 2:32 12/29/2020 2:32 Unknown PM [employer] DRIVER PM [employer] DRIVER Celina Acosta MD LAB_1 Performing Organization Address [facility] Phon e Number [place] [phone] Glutamic Acid Decarboxylase Antibody (12/29/2020 2:32 PM [employer] DRIVER) Patholo gist Method Time Signature GLUTAMIC ACID <5.0 0.0 - 5.0 01/01/2021 [facility] DECARBOXYLASE IU/mL 5:34 PM [employer] ANTIBODY Comment: INTERPRETIVE INFORMATION: ??Glutamic Aci d Decarboxylase Antibody A value greater than 5.0 IU/mL is consid ered positive for Glutamic Acid Decarboxylase Antibody (RACHEL Ab). Th is assay is intended for the semi-quantitative determination of t he RACHEL Ab in human serum. Results should be interpreted within the context of clinical symptoms. Performed By: [facility] [address] [place] [id number] Game Operator: Yaneli Lopez MD Specimen Anatomical Collection Method / Collection Time Recei chantelle Time (Source) Location / Volume Laterality Blood Venipuncture / 12/29/2020 2:32 12/29/2020 2:32 Unknown PM [employer] DRIVER PM [employer] DRIVER Celina Acosta MD LAB_1 Performing Organization Address [facility] Phon e Number [place] [phone] Insulin Antibodies Panel (12/29/2020 2:32 PM [employer] DRIVER) Analysis Performed At Patho logist Time Signature Insulin <0.4 0.0 - 0.4 01/07/2021 [facility] Antibodies U/mL 12:45 PM [employer] DR[facility] LAB[facility]IES Comment: INTERPRETIVE INFORMATION: Insulin Antibo dy [...] context of clinic al symptoms. Performed By: [facility] [address] [place] [address] Game Operator: Yaneli Lopez MD Specimen Anatomical Collection Method / Collection Time Recei chantelle Time (Source) Location / Volume Laterality Blood Venipuncture / 12/29/2020 2:32 12/29/2020 2:32 Unknown PM [employer] DRIVER PM [employer] DRIVER Narrative [facility] - 01/07/2021 12:45 PM [employer] DRIVER Test delayed. Expected completion 01/11/21 . Due to Unexpected bolus of specimens. Celina Acosta MD LAB_1 Performing Organization Address City/State/ZIP Code Phon e Number [facility] [employer] [facility] [address] [place], [place] [phone] documented in this encounter Visit Diagnoses Diagnosis Uncontrolled type 2 diabetes mellitus wi th hyperglycemia ([facility]) documented in this encounter
--- OUTSIDE RECORDS SUMMARY | 2022-09-24 17:40 | XMS_ITS | Encounter Summary ---
:1995 Author Organization [facility] Address [address] [address] Care Team Providers Name Role Phone Unavailable Primary Care Provider Unavailable Reason for Visit Reason Comments Diabetes Encounter Details Date Type Department Care Team Description 12/29/2020 Office Visit [facility] Celina Acosta led type 2 Endocrinology Akash Iqbal MD diabetes mellitus with [id number] [employer] [address] [place] [address] hyperglycemia (HRC) [place] [address] Blvd (Primary Dx) [phone] [place], [place] [address] Social History Tobacco Use Types Packs/Day Years Used Date Smoking Tobacco: Never Smokeless Tobacco: Never Sex Assigned at Date Recorded Not on file documented as of this encounter Last Filed Vital Signs Vital Sign Reading Time Taken Comments Blood Pressure 119/82 12/29/2020 1:52 PM [facility] Pulse 87 12/29/2020 1:52 PM [facility] Temperature - - Respiratory Rate - - Oxygen Saturation - - Inhaled Oxygen Concentration - - Weight 85.5 kg (188 lb 8 oz) 12/29/2020 1:52 PM [facility] Height 165.1 cm (5' 5) 12/29/2020 1:52 PM [facility] Body Mass Index 31.37 12/29/2020 1:52 PM [facility] documented in this encounter Progress Notes Demetri Rubalcava - 12/29/2020 1:30 PM CST Images from the original note were not included. [facility] Celina Acosta MD - 12/29/2020 1:30 PM CST ENDOCRINOLOGY VISIT OFFICE VISIT Date of visit: 12/29/2020 REASON FOR VISIT: NEW ONSET DM ASSESSMENT Ermelinda Caldeorn is a 25 y.o. female with: Hyperglycemia [...] last year or 2 after moving to [place] from [place]. She had polyuria and polydipsia and decided [...] / SH / MED / ALL in [facility]. OBJECTIVE BP 119/82 (BP Location: [...] Date Hemoglobin A1C, POCT 10.5 (A) 12/29/2020 [facility] documented in this encounter Plan of Treatment Not on filedocumented as of this encounter Procedures Procedure Name Priority Date/Time Associated Diagnosis Comme nts POCT GLYCOSYLATED Routine 12/29/2020 2:12 Uncontrolled type 2 Results for this HEMOGLOBIN (HGB A1C) PM [facility] diabetes mellitus pr ocedure are in with hyperglycemia the resul ts (HRC) section. documented in this encounter Results Microalbumin/Creatinine Ratio (12/29/2020 2:51 PM [facility]) athologist Signature Albumin, 27.4 mg/L 12/29/2020 [facility] Urine, Random 4:45 PM [facility] Creatinine, 165 >20 mg/dL 12/29/2020 [facility] Urine, Random 4:45 PM [facility] Albumin/Creati 17 <30 mg/g 12/29/2020 [facility] nine Ratio, 4:45 PM [facility] Urine, Random Specimen Anatomical Collection Method Collection Time Receive d Time (Source) Location / / Volume Laterality Urine Non-blood 12/29/2020 2:51 PM 2:51 Collection / [facility] PM [facility] Unknown Celina Acosta MD LAB_1 Performing Organization Address [facility]/ZIP [facility] e Jason [facility] [address] [place] [address] (ABNORMAL) ALT (SGPT) (12/29/2020 2:32 PM [facility]) athologist [facility] ALT (SGPT) 61 (H) 0 - 55 U/L 12/29/2020 [facility] 4:19 PM [facility] Specimen Anatomical Collection Method / Collection Time Recei chantelle Time (Source) Location / Volume Laterality Blood Venipuncture / 12/29/2020 2:32 12/29/2020 2:32 Unknown PM [facility] PM [facility] Celina Acosta MD LAB_1 Performing Organization Address City/[facility]/ZIP [facility] e Number [facility] [address] [place] [address] TSH with Free T4 (if TSH Abnormal) (12/29/2020 2:32 PM [facility]) athologist Signature TSH, Reflex 2.39 0.30 - 4.50 12/29/2020 [facility] uIU/mL 7:10 PM [facility] Specimen Anatomical Collection Method / Collection Time Recei chantelle Time (Source) Location / Volume Laterality Blood Venipuncture / 12/29/2020 2:32 12/29/2020 2:32 Unknown PM [facility] PM [facility] Narrative [facility] - 12/29/2020 7:10 P M [facility] Lab will automatically reflex to Free T4 when TSH results are <0.30 uIU/mL or >4.50 mIU/mL. Celina Acosta MD LAB_1 Performing Organization Address [facility]/ZIP [facility] Phon e Number [facility] [address] [place] [address] (ABNORMAL) Hgb A1C (12/29/2020 2:32 PM [facility]) [facility] Method Time Signature Hemoglobin A1C 11.5 (H) <=5.6 % 12/30/2020 [facility] 12:24 PM [facility] Specimen Anatomical Collection Method / Collection Time Recei chantelle Time (Source) Location / Volume Laterality Blood Venipuncture / 12/29/2020 2:32 12/29/2020 2:32 Unknown PM [facility] PM [facility] Narrative [facility] - 12/30/2020 12:24 PM [facility] For patients not previously diagnosed with diabetes: 5.7-6.4%: Increased risk for diabetes 6.5% and greater: Diagnostic for diabete s For patients diagnosed with diabetes: <8.0%: Goal of therapy for ages 18-75 Clinicians may recommend a higher or low er goal for specific individuals. Celina Acosta MD LAB_1 Performing Organization Address [facility] Phon e Number [facility] [address] [address] Vitamin B12 Only (12/29/2020 2:32 PM [facility]) athologist Signature Vitamin B12 680 469 - 646 12/29/2020 [facility] pg/mL 7:10 PM [facility] Specimen Anatomical Collection Method / Collection Time Recei chantelle Time (Source) Location / Volume Laterality Blood Venipuncture / 12/29/2020 2:32 12/29/2020 2:32 Unknown PM [facility] PM [facility] Celina Acosta MD LAB_1 Performing Organization Address City/[facility] Phon e Number [facility] [address] [place] [address] CK, Total (12/29/2020 2:32 PM [facility]) athologist [facility] CK, Total 75 29 - 168 12/29/2020 [facility] U/L 4:19 PM [facility] Specimen Anatomical Collection Method / Collection Time Recei chantelle Time (Source) Location / Volume Laterality Blood Venipuncture / 12/29/2020 2:32 12/29/2020 2:32 Unknown PM [facility] PM [facility] Celina Acosta MD LAB_1 Performing Organization Address [facility]/ZIP Code Phon e Number [facility] [address] [place] [address] (ABNORMAL) LDL Cholesterol, Direct Measured (12/29/2020 2:32 PM [facility]) athologist [facility] LDL, Direct 160 (H) <=130 12/29/2020 [facility] mg/dL 4:19 PM [facility] Specimen Anatomical Collection Method / Collection Time Recei chantelle Time (Source) Location / Volume Laterality Blood Venipuncture / 12/29/2020 2:32 12/29/2020 2:32 Unknown PM [facility] PM [facility] Celina Acosta MD LAB_1 Performing Organization Address [facility]/ZIP Code Phon e Number [facility] [address] [place] [address] (ABNORMAL) Basic Metabolic Panel (12/29/2020 2:32 PM [facility]) Analysis Performed At [facility] Sodium 137 136 - 145 12/29/2020 [facility] mmol/L 4:19 PM [facility] Potassium 3.8 3.5 - 5.1 12/29/2020 [facility] mmol/L 4:19 PM [facility] Chloride 105 98 - 109 12/29/2020 [facility] mmol/L 4:19 PM [facility] CO2 24 20 - 29 12/29/2020 [facility] mmol/L 4:19 PM [facility] Anion Gap 8 7 - 16 12/29/2020 [facility] mmol/L 4:19 PM [facility] Calcium 8.9 8.4 - 10.4 12/29/2020 [facility] mg/dL 4:19 PM [facility] BUN 11 7 - 26 12/29/2020 [facility] mg/dL 4:19 PM [facility] Creatinine 0.60 0.55 - 12/29/2020 [facility] 1.02 mg/dL 4:19 PM [facility] GFR, Est If >60 >60 12/29/2020 [facility] mL/min/1.7 4:19 PM [facility] Cymraes 3m2 Glucose 273 (H) 70 - 100 12/29/2020 [facility] mg/dL 4:19 PM [facility] Comment: The given reference range is fo r the fasting state. Non-fasting reference range for glucose is 70 - 180 mg/dL. Hours Fasting 2 12/29/2020 4:19 PM [facility] Specimen Anatomical Collection Method / Collection Time Recei chantelle Time (Source) Location / Volume Laterality Blood Venipuncture / 12/29/2020 2:32 12/29/2020 2:32 Unknown PM [facility] PM [facility] Celina Acosta MD LAB_1 Performing Organization Address City/[facility]/ZIP [facility] Phon e Number [facility] [address] [place] [phone] C-Peptide, Serum or Plasma (12/29/2020 2:32 PM [facility]) athologist Signature C-Peptide 2.2 0.8 - 3.5 12/31/2020 [facility] [employer] ng/mL 2:38 PM [facility] Comment: INTERPRETIVE INFORMATION: C-Peptide, Ser um or Plasma Reference Interval applies to fasting sp ecimens. To convert to nmol/L, multiply by 0.33 Performed By: [employer] [facility] [address] [place] [address] [employer]: Yaneli Lopez MD Specimen Anatomical Collection Method / Collection Time Recei chantelle Time (Source) Location / Volume Laterality Blood Venipuncture / 12/29/2020 2:32 12/29/2020 2:32 Unknown PM [facility] PM [facility] Celina Acosta MD LAB_1 Performing Organization Address [facility] Phon e Number [facility] [address] [place], [place] [address] [phone] Islet Cell IGG Antibody (12/29/2020 2:32 PM [facility]) athologist Signature Islet Cell <1:4 <1:4 12/31/2020 [facility] Antibody 5:20 PM [facility] Comment: INTERPRETIVE INFORMATION: Islet Cell Ab, [...] and its performa nce characteristics determined by [employer] [employer]. It has not been cleared or approved by the [place] Food and Drug Adminis tration. This test was performed in a CLIA certified laboratory and is intended for clinical purposes. Performed By: [employer] [address] [place], [place] [id number] Butter Liquefier: Yaneli Lopez MD Specimen Anatomical Collection Method / Collection Time Recei chantelle Time (Source) Location / Volume Laterality Blood Venipuncture / 12/29/2020 2:32 12/29/2020 2:32 Unknown PM [facility] PM [facility] Celina Acosta MD LAB_1 Performing Organization Address City/State/ZIP Code Phon e Number [facility] [address] [place] [phone] IA-2 Antibody (12/29/2020 2:32 PM [facility]) athologist Signature IA-2 Antibody <5.4 0.0 - 7.4 01/02/2021 [facility] U/mL 11:01 AM [facility] Comment: INTERPRETIVE INFORMATION: Islet Antigen- 2 (IA-2) ?A utoantibody, Serum A value greater than or equal to 7.5 Uni ts/mL is considered positive for IA-2 autoantibodies. This assay is intended for the quantitat tani determination of autoantibodies to Islet Antigen-2 (IA-2) in human serum. Results should be interpreted within the context of clinical symptoms. Performed By: [facility] [address] [place] [address] Butter Liquefier: Yaneli Lopez MD Specimen Anatomical Collection Method / Collection Time Recei chantelle Time (Source) Location / Volume Laterality Blood Venipuncture / 12/29/2020 2:32 12/29/2020 2:32 Unknown PM [facility] PM [facility] Celina Acosta MD LAB_1 Performing Organization Address [facility] e Number [place] [phone] Glutamic Acid Decarboxylase Antibody (12/29/2020 2:32 PM [facility]) Patholo gist Method Time Signature GLUTAMIC ACID <5.0 0.0 - 5.0 01/01/2021 [facility] DECARBOXYLASE IU/mL 5:34 PM [facility] ANTIBODY Comment: INTERPRETIVE INFORMATION: ??Glutamic Aci d Decarboxylase Antibody A value greater than 5.0 IU/mL is consid ered positive for Glutamic Acid Decarboxylase Antibody (RACHEL Ab). Th is assay is intended for the semi-quantitative determination of t he RACHEL Ab in human serum. Results should be interpreted within the context of clinical symptoms. Performed By: [employer] [employer] [address] [place] [address] Butter Liquefier: Yaneli Lopez MD Specimen Anatomical Collection Method / Collection Time Recei chantelle Time (Source) Location / Volume Laterality Blood Venipuncture / 12/29/2020 2:32 12/29/2020 2:32 Unknown PM [facility] PM [facility] Celina Acosta MD LAB_1 Performing Organization Address [facility] e Number [place] [phone] Insulin Antibodies Panel (12/29/2020 2:32 PM [facility]) Analysis Performed At Patho logist Time Signature Insulin <0.4 0.0 - 0.4 01/07/2021 [facility] Antibodies U/mL 12:45 PM [facility] Comment: INTERPRETIVE INFORMATION: Insulin Antibo dy [...] context of clinic al symptoms. Performed By: [employer] [employer] [facility] [address] [place] [address] Butter Liquefier: Yaneli Lopez MD Specimen Anatomical Collection Method / Collection Time Recei chantelle Time (Source) Location / Volume Laterality Blood Venipuncture / 12/29/2020 2:32 12/29/2020 2:32 Unknown PM [facility] PM [facility] Narrative [facility] - 01/07/2021 12:45 PM [facility] Test delayed. Expected completion 01/11/21 . Due to Unexpected bolus of specimens. Celina Acosta MD LAB_1 Performing Organization Address City/[facility]/ZIP Code Phon e Number [facility] [address] [place], [place] [phone] (ABNORMAL) POCT glycosylated hemoglobin (Hb A1C) (12/29/2020 2:12 PM [facility]) Analysis Performed At Patho logist Time Signature Hemoglobin A1C 10.5 (A) 5.6 % POCT (Rapid) Cartridge Lot# [id number] POCT Specimen (Source) Anatomical Collection Method Collection Time Re ceived Time Location / / Volume Laterality Blood 12/29/2020 2:12 PM [facility] Celina Acosta MD ET POINT OF CARE TEST ENTER/ EDIT ORDERABLES Performing Organization Address City/[facility]/ZIP Code Phon e Number POCT documented in this encounter Visit Diagnoses Diagnosis Uncontrolled type 2 diabetes mellitus wi th hyperglycemia (HRC) - Primary documented in this encounter
--- OUTSIDE RECORDS SUMMARY | 2022-09-24 17:40 | XMS_ITS | Encounter Summary ---
:1995 Author Organization [facility] Address [address] [place] [address] Care Team Providers Name Role Phone Unavailable Primary Care Provider Unavailable Reason for Visit Reason Comments Appt. Needed referral Encounter Details Date Type Department Care Team Description 12/26/2020 Telephone [facility] 3800 Nurse, [id number] End Appt. Needed Endocrinology [address] Vandana Rendon (referral) [address] [facility] [place] [address] Social History Tobacco Use Types Packs/Day Years Used Date Smoking Tobacco: Never Assessed Sex Assigned at Date Recorded Not on file documented as of this encounter Nursing Notes Evangelina Smith - 12/26/2020 10:28 AM CST Faxed referral rec'd from [facility] for Hyperglycemia and DM2, records sent to scan doc R SETTER documented in this encounter Plan of Treatment Not on filedocumented as of this encounter Visit Diagnoses Not on filedocumented in this encounter
== END 2022-09-24 16:10 | disposition home or self-care (01) ==
PROVIDERS: PCP Obstetrics & Gynecology; Visit Provider Emergency Medicine
DX: J02.9 Acute pharyngitis, unspecified (principal)
CPT/HCPCS: 84443

== ENCOUNTER 2023-04-27 08:32 | Outpatient (CLI) | payer MEDICAID, SELFPAY | END 2023-04-27 08:33 | disposition home or self-care (01) | PROVIDERS: PCP Obstetrics & Gynecology; Visit Provider Physician Assistant Medical | DX: E53.8 Deficiency of other specified B group vitamins (principal); R51.9 Headache, unspecified; R79.89 Other specified abnormal findings of blood chemistry | CPT/HCPCS: 80053; 82306; 82607; 84443 ==

== ENCOUNTER 2023-05-02 12:53 | Outpatient (CLI) | payer MEDICAID, SELFPAY ==
--- NOTE | 2023-05-02 13:00 | CRLHL7_ITS ---
For Patients: As a result of the Century Cures Act, medical imaging exams and procedure reports are released immediately into your electronic medical record. You may view this report before your referring provider. If you have questions, please contact your health care provider. INDICATION: Right upper quadrant pain TECHNIQUE: Ultrasound abdomen limited. Sonographic images of the right upper quadrant were obtained using sherman-scale and color Doppler images. COMPARISON: 12/20/2020 FINDINGS: Liver: Normal in size and echotexture. No masses. No intrahepatic biliary dilatation. Gallbladder: Cholelithiasis. No gallbladder wall thickening. No pericholecystic fluid. Common bile duct: 3 mm. Pancreas: Normal. Right kidney: 11.2 cm. Normal echotexture and cortex. No masses, stones, or hydronephrosis. Vasculature: Proximal abdominal aorta and IVC are normal. IMPRESSION: Cholelithiasis in an otherwise normal-appearing gallbladder. Normal common bile duct. Dictated by Adam Webster MD @ 05/02/2023 7:34:41 PM (Electronically Signed)
== END 2023-05-02 12:54 | disposition home or self-care (01) ==
LOC: US 12:54
PROVIDERS: PCP Obstetrics & Gynecology; Visit Provider Physician Assistant Medical
DX: R10.11 Right upper quadrant pain (principal); K80.20 Calculus of gallbladder without cholecystitis without obstruction
CPT/HCPCS: 76705

== ENCOUNTER 2023-05-09 12:42 | Outpatient (CLI) | payer MEDICAID, SELFPAY ==
--- NOTE | 2023-05-09 13:00 | CRLHL7_ITS ---
For Patients: As a result of the Century Cures Act, medical imaging exams and procedure reports are released immediately into your electronic medical record. You may view this report before your referring provider. If you have questions, please contact your health care provider. Indication: Migraine headaches. Technique: Noncontrast sagittal T1, axial FLAIR, T2, diffusion weighted sequences are provided. No comparisons. Findings: The ventricles, sulci and gyri are normal size, shape and contour for age. The midline structures are centrally located with no evidence of shift. There are no suspicious intra or extra-axial fluid collections. No region of restricted diffusion. Expected flow voids in the cavernous carotids and basilar artery. Impression: 1. No radiographic evidence of acute intracranial abnormalities. Dictated by Conor Lopez MD @ 05/09/2023 6:37:31 PM (Electronically Signed)
== END 2023-05-09 12:43 | disposition home or self-care (01) ==
LOC: MRI 12:43
PROVIDERS: PCP Obstetrics & Gynecology; Visit Provider Physician Assistant Medical
DX: G43.909 Migraine, unspecified, not intractable, without status migrainosus (principal)
CPT/HCPCS: 70551

== ENCOUNTER 2024-01-30 12:58 | Emergency (ER) | payer MEDICAID, SELFPAY ==
[2024-01-30 13:01] VITALS: BP 128/82; PULSE 96; RESP 18; TEMP 36.2; O2SAT 98; BMI 29.1
--- NOTE | 2024-01-30 13:10 | ED.GENADULT ---
HPI - General Adult General Date Seen: 01/30/24 Chief complaint: Abdominal Pain Stated complaint: Early , abdominal pain Time Seen by Provider: 01/30/24 13:04 History of Present Illness HPI narrative: 28-year-old female with a history of ectopic who is currently in her 1st trimester , approximately 4 weeks based on LMP is referred to the ER today to get an ultrasound to rule out ectopic because she has been experiencing pelvic pain. She is with 2 healthy deliveries (daughters) 1 miscarriage, and 1 ectopic . She just discovered she was with a test at home 3 days ago on Tuesday. Let us menstrual cycle for this was December 30 which would mean she is approximately 4 weeks and 3 days gestation today. She has been experiencing bilateral lower quadrant cramping since Tuesday night or Tuesday morning. Sometimes is worse on the right but generally tends to be bilateral. No pain through to her back. No fever. No vaginal bleeding. No purulent discharge. Bowel movements normal. She has been urinating a lot the past few days. She has a history of diabetes and was supposed to be on as him back for that but stopped it recently. She is not on any other meds for diabetes. She had her previous obstetric care through the [facility] system and a delivery done at the [facility] in [place]. She delivered her her 1st daughter at [email or web address] [place], [place] Related Data Home Medications Medication Instructions Recorded Confirmed semaglutide 0.25 mg or 0.5 mg (2 0.25 mg subcut QWEEK 09/24/22 04/27/23 mg/1.5 mL) subcutaneous pen injector (Ozempic) Previous Rx's Medication Instructions Recorded sumatriptan succinate 50 mg tablet See Rx Instructions PO .COMPLEX #9 04/27/23 (Imitrex) tabs Allergies Allergy/AdvReac Type Severity Reaction Status Date / Time No Known Drug Allergies Allergy Verified 04/27/23 08:09 [facility] Medical History (Updated 01/30/24 @ 16:49 by Joseph Duran MD) Vertigo ?R42 - Dizziness and giddiness (ICD-10) Nausea & vomiting ?R11.2 - Nausea with vomiting, unspecified (ICD-10) Dizziness ?R42 - Dizziness and giddiness (ICD-10) Vaginal bleeding ?N93.9 - Abnormal uterine and vaginal bleeding, unspecified (ICD-10) Toothache ?K08.89 - Other specified disorders of teeth and supporting structures (ICD-10) Right lower quadrant abdominal pain ?R10.31 - Right lower quadrant pain (ICD-10) ?Z34.90 - Encounter for supervision of normal , unspecified, unspecified trimester (ICD-10) Pain in pelvis ?R10.2 - Pelvic and perineal pain (ICD-10) History of severe pre-eclampsia ?Z87.59 - Personal history of other complications of , childbirth and the puerperium (ICD-10) History of menorrhagia ?Z87.42 - Personal history of other diseases of the female genital tract (ICD-10) History of gestational diabetes mellitus (GDM) ?Z86.32 - Personal history of gestational diabetes (ICD-10) Hemorrhage in early ?O20.9 - Hemorrhage in early , unspecified (ICD-10) Ectopic ?O00.90 - Unspecified ectopic without intrauterine (ICD-10) Surgical History (Updated 04/22/23 @ 14:14 by Rosey Baker) Status post delivery ?Z98.891 - History of uterine scar from previous surgery (ICD-10) Family History (Updated 04/22/23 @ 14:11 by Rosey Baker) Family/Other Diabetes Social History (Updated 04/22/23 @ 14:11 by Rosey Baker) Narrative: has 1 child, , nonsmoker Smoking Status: Never smoker Do you use any of these nicotine containing products: None Second hand tobacco smoke exposure: No How often do you have a drink containing alcohol: never How often do you have six or more drinks on one occasion: Never AUDIT-C Alcohol total score: 0 Non-prescribed substance use: denies use and other Non-prescribed substance use details: diet pills service: No Exam Narrative: Exam Narrative: Constitutional: Appears well-developed and well-nourished. Alert. Conversant. Non toxic. wearing her bladder covering and face mask. HENT: Head: Atraumatic. Nose: Nose normal. Mouth/Throat: Oral mucosa is clear and moist. no trismus. Pharynx normal. Tonsils symmetric. No tonsillar enlargement, erythema, or exudate. Eyes: Conjunctivae normal. EOM normal. Pupils equal, round, and reactive to light. No scleral icterus. Neck: Normal range of motion. Neck supple. No tracheal deviation present. Cardiovascular: Normal rate, regular rhythm. No gallop. No friction rub. No murmur heard. Pulmonary/Chest: Effort normal. No stridor. No respiratory distress. No wheezes. No rales. No rhonchi . No tenderness. Abdominal: Soft. Bowel sounds normal. No distension. No mass. RLQ, suprapubic and LLQ tenderness. No rebound. No guarding. No CVA tenderness Musculoskeletal: RUE: Normal range of motion. No tenderness. No deformity LUE: Normal range of motion. No tenderness. No deformity RLE: Normal range of motion. No edema. No tenderness. No deformity LLE: Normal range of motion. No edema. No tenderness. No deformity Neurological: Alert and oriented to person, place, and time. Normal strength. CN II-VII intact. No sensory deficit. GCS eye subscore is 4. GCS verbal subscore is 5. GCS motor subscore is 6. Normal coordination Skin: Skin is warm and dry. No rash noted. No pallor. Normal capillary refill. Psychiatric: Normal mood. Normal affect. Const: Vital Signs, click to edit/add: Vital Signs - 24 hr 01/30/24 13:01 Temperature 97.2 F L Pulse Rate [Right Pulse Oximeter] 96 Respiratory Rate 18 Blood Pressure [Ri ght Upper Arm] 128/82 Pulse Oximetry 98 Oxygen Delivery Me thod Room Air Course Vital Signs Vital signs: Initial Vital Signs Temperature 97.2 F L 01/30/24 13:01 Temperature Source Temporal Artery Scan 01/30/24 13:01 Pulse Rate 96 01/30/24 13:01 Respiratory Rate 18 01/30/24 13:01 Blood Pressure 128/82 01/30/24 13:01 Blood Pressure Mean 97 01/30/24 13:01 Blood Pressure Position Sitting 01/30/24 13:01 Pulse Oximetry 98 01/30/24 13:01 Oxygen Delivery Method Room Air 01/30/24 13:01 Vital Signs Temperature 97.2 F L 01/30/24 13:01 Pulse Rate 96 01/30/24 13:01 Respiratory Rate 18 01/30/24 13:01 Blood Pressure 128/82 01/30/24 13:01 Pulse Oximetry 98 01/30/24 13:01 Oxygen Delivery Method Room Air 01/30/24 13:01 Temperature 97.2 F L 01/30/24 13:01 Pulse Rate 96 01/30/24 13:01 Respiratory Rate 18 01/30/24 13:01 Blood Pressure 128/82 01/30/24 13:01 Pulse Oximetry 98 01/30/24 13:01 Oxygen Delivery Method Room Air 01/30/24 13:01 Medical Decision Making MDM Narrative Medical decision making narrative: Very pleasant 28-year-old female who is currently approximately 4 weeks by dates presenting to the ER today with bilateral lower quadrant abdominal pain. Quantitative hCG is positive at 280. She is not having any vaginal bleeding or vaginal fluid discharge. Concern here is for possible ectopic (patient has a history of 1 previous ectopic) versus early miscarriages versus other complication. Also consider other pathology such as ovarian cyst or torsion. She does not have leukocytosis. No localizing tenderness to the right lower quadrant or any guarding rebound to raise high suspicion for appendicitis. At this point would hold off on CT imaging. Primary concern is for possible complications such as ectopic or miscarriage. Hemoglobin is normal. White count normal. Pelvic ultrasound does not show any clear evidence of . I suspect this may be because she is very early at only 4 weeks. At this point no evidence for ectopic but no confirmed IUP either. Discussed with the patient. She will need follow-up evaluation with hCG and ultrasound in OB Clinic. She is also diabetic and has been noting urinary frequency lately. Urinalysis negative for glucosuria and serum glucose is only 174. No evidence for DKA. Urinalysis shows no evidence for UTI or blood to suggest kidney stone. Lab Data Labs: Lab Results 01/30/24 01/30/24 Range/Units 13:38 14:10 WBC 9.24 (4.50-11.00) K/uL RBC 4.63 (4.00-5.20) m/uL Hgb 13.2 (12.0-16.0) gm/dL Hct 40.5 (33.0-51.0) % MCV 88 (80-100) fL MCH 29 (26-34) pg MCHC 33 (32-36) gm/dL RDW Coeff of Yolanda 13.3 (11.5-15.5) % Plt Count 411 (140-440) K/uL Neut % (Auto) 63.1 (42.0-72.0) % Lymph % (Auto) 30.2 (20-44) % [place] % (Auto) 5.4 (0.0-11.0) % Eos % (Auto) 0.6 (0.0-7.0) % Baso % (Auto) 0.3 (0.0-3.0) % Neut # (Auto) 5.82 (1.7-7.0) K/uL Lymph # (Auto) 2.79 (0.90-2.90) K/uL [place] # (Auto) 0.50 (0.00-0.90) K/UL Eos # (Auto) 0.06 (0.00-0.50) K/uL Baso # (Auto) 0.03 (0.00-0.30) K/uL Abs Immat Gran (auto) 0.04 (0.00-0.30) K/uL Imm/Tot Granulo (auto) 0.4 % Sodium 137 (135-149) mmol/L Potassium 4.6 (3.6-5.1) mmol/L Chloride 104 (96-114) mmol/L Carbon Dioxide 26 (20-32) mmol/L Anion Gap 7 (7-15) mEq/L BUN 15 (5-24) mg/dL Creatinine 0.5 (0.5-1.5) mg/dL Estimated Creat Clear 148.04 Estimated GFR 129 ml/min Glucose 174 H (60-115) mg/dL Calcium 9.1 (8.4-10.6) mg/dL HCG, Quant 280.64 mIU/mL Urine Color Yellow (Yellow) Urine Appearance Clear (Clear) Urine pH 7.5 (5.0-8.5) Ur Specific [place] 1.020 (1.000-1.030) Urine Protein Negative (Negative) Urine Glucose (UA) Negative (Negative) Urine Ketones Negative (Negative) Urine Blood Negative (Negative) Urine Nitrite Negative (Negative) Urine Bilirubin Negative (Negative) Urine Urobilinogen 0.2 (0.2-1.0) Ur Leukocyte Esterase Negative (Negative) Urine RBC 0-2 (0-2) Urine WBC 0-2 (0-5) Ur Squamous Epith Cells None (None-Few) Urine Bacteria Few A (None) Imaging Data US pelvis: Attestation: I have reviewed the pertinent imaging results. Radiologist's impression: Impression: of unknown location. Recommend follow-up serial quantitative HCGs and pelvic ultrasound in 10-14 days. Discharge Plan Discharge Clinical Impression: Pelvic pain affecting Patient Disposition: Home, Self-Care Condition: Stable Instructions: Abdominal Pain in (ED) Additional Instructions: As we discussed, at this time her laboratory workup looks reassuring. Your hormone level is 280 today. Your ultrasound does not show the location of your baby. This may be because your is too early and the baby is too small to be seen on ultrasound. Unfortunately, when we cannot see the baby, we cannot determine whether the baby is growing appropriately in your uterus or if this is a tubal . Monitor your symptoms carefully and if you have any worsening pain, vaginal bleeding, lightheadedness, or any other concern, return to the ER right away. Please call your OB office to arrange a follow-up appointment within it 1 week to have a repeat ultrasound. You can also ask your OB doctor to repeat your hormone level in the next 48-72 hours. Prescriptions: No Action Ozempic 0.25 mg or 0.5 mg(2 mg/1.5 mL) pen injector 0.25 mg subcut QWEEK Rx Instructions: for 4 doses sumatriptan succinate [Imitrex] 50 mg tablet See Rx Instructions PO .COMPLEX Qty: 9 0RF Rx Instructions: take 1 tab at onset of headache; if no relief may repeat 1 tab after at least 2 hrs; max = 4 tabs/24 hr PO Follow Up/Referrals: Levy Hudson PA-C [Primary Care Provider] - Stand Alone Forms: UP Online Info Instructions
--- NOTE | 2024-01-30 13:23 | US_ITS ---
Patient: DAGOBERTO DEL CID Facility:?[facility] Patient ID:?[id number] Site Patient ID:?[id number]. Site :?[id number] Study:?US-OB Pelvis TA/TV-01/30/2024 3:57:34 PM Ordering Physician:?ED Final Report: Indication: early , right side pain. hx of ectopic and miscarriage. known left pelvic kidney Technique: Transvaginal pelvic ultrasound utilizing grayscale and color flow techniques. Comparison: None. Findings: Uterus: 8 x 5 by 4 centimeters. No cysts or masses. Endometrium: 14 millimeters in thickness. No gestational sac or fluid. Ovaries: Left ovary not visualized secondary to technique, atypical position or surgical absence. Partially visualized left kidney is grossly unremarkable. There are no left adnexal cysts or masses. The right ovary measures 1.8 x 1.6 x 3.7 centimeters. Free fluid: None. Impression: of unknown location. Recommend follow-up serial quantitative HCGs and pelvic ultrasound in 10-14 days. Dictated by Rolando Geller MD @ 01/30/2024 4:39:04 PM Signed by:?Rolando Geller MD @01/30/2024 4:39:04 PM (Electronic Signature)
[2024-01-30 13:57] LABS: Chloride* 104 mmol/L (96-114); Potassium* 4.6 mmol/L (3.6-5.1); Sodium* 137 mmol/L (135-149)
[2024-01-30 13:58] LABS: Basophils Absolute Auto 0.03 K/uL (0.00-0.30); Basophils Percent Auto 0.3 % (0.0-3.0); Eosinophils Absolute Auto 0.06 K/uL (0.00-0.50); Eosinophils Percent Auto 0.6 % (0.0-7.0); Hematocrit 40.5 % (33.0-51.0); Hemoglobin* 13.2 gm/dL (12.0-16.0); Immature Granulocytes Abs Auto 0.04 K/uL (0.00-0.30); Immature Granulocytes Pct Auto 0.4 %; Lymphocytes Absolute Auto 2.79 K/uL (0.90-2.90); Lymphocytes Percent Auto 30.2 % (20-44); Mean Corpuscular HGB Conc 33 gm/dL (32-36); Mean Corpuscular Hemoglobin 29 pg (26-34); Mean Corpuscular Volume 88 fL (80-100); Monocytes Percent Auto 5.4 % (0.0-11.0); Neutrophils Absolute Auto 5.82 K/uL (1.7-7.0); Neutrophils Percent Auto 63.1 % (42.0-72.0); Platelet Count* 411 K/uL (140-440); RDW Coefficient of Variation % 13.3 % (11.5-15.5); Red Blood Count 4.63 m/uL (4.00-5.20); White Blood Count* 9.24 K/uL (4.50-11.00)
[2024-01-30 13:59] LABS: Creatinine* 0.5 mg/dL (0.5-1.5); Est. Creatinine Clearance* 148.04; Estimated Glomerular Filt Rate 129 ml/min
[2024-01-30 14:00] LABS: Anion Gap 7 mEq/L (7-15); Blood Urea Nitrogen* 15 mg/dL (5-24); Calcium* 9.1 mg/dL (8.4-10.6); Carbon Dioxide* 26 mmol/L (20-32); Glucose* 174 mg/dL (60-115)
[2024-01-30 14:07] LABS: Slide Review Reflex No
[2024-01-30 14:17] LABS: HCG Quantitative* 280.64 mIU/mL
[2024-01-30 14:17] LABS: Appearance Urine Clear (Clear); Bilirubin Urine Negative (Negative); Blood Urine Negative (Negative); Color Urine Yellow (Yellow); Glucose Urine Negative (Negative); Ketones Urine Negative (Negative); Leukocyte Esterase Urine Negative (Negative); Nitrite Urine Negative (Negative); Protein Urine Negative (Negative); Urobilinogen Urine 0.2 (0.2-1.0); pH Urine 7.5 (5.0-8.5)
[2024-01-30 14:27] LABS: Bacteria Urine Few; RBC Urine 0-2 (0-2); WBC Urine 0-2 (0-5)
--- NOTE | 2024-02-03 11:11 | ED_ITS ---
HPI - General Adult General Time Seen by Provider: 11:11 Chief complaint: Abdominal Pain Stated complaint: Early , abdominal pain Time Seen by Provider: 01/30/24 13:04 History of Present Illness HPI narrative: addendum to recent ER visit. was in ER for pelvic pain during first trimester. UA negative. no UTI symptoms . Urine culture shows [id number] CFU enterococcus faecalis. needs repeat urine culture to diagnose asymptomatic bacteriuria. called patient at her listed phone number [phone] on 02/02. message left to call ER Related Data Home Medications Medication Instructions Recorded Confirmed semaglutide 0.25 mg or 0.5 mg (2 0.25 mg subcut QWEEK 09/24/22 04/27/23 mg/1.5 mL) subcutaneous pen injector (Ozempic) Previous Rx's Medication Instructions Recorded sumatriptan succinate 50 mg tablet See Rx Instructions PO .COMPLEX #9 04/27/23 (Imitrex) tabs Allergies Allergy/AdvReac Type Severity Reaction Status Date / Time No Known Drug Allergies Allergy Verified 04/27/23 08:09 [facility] Medical History (Updated 01/30/24 @ 16:49 by Joseph Duran MD) Vertigo ?R42 - Dizziness and giddiness (ICD-10) Nausea & vomiting ?R11.2 - Nausea with vomiting, unspecified (ICD-10) Dizziness ?R42 - Dizziness and giddiness (ICD-10) Vaginal bleeding ?N93.9 - Abnormal uterine and vaginal bleeding, unspecified (ICD-10) Toothache ?K08.89 - Other specified disorders of teeth and supporting structures (ICD-1 0) Right lower quadrant abdominal pain ?R10.31 - Right lower quadrant pain (ICD-10) ?Z34.90 - Encounter for supervision of normal , unspecified, unspecified trimester (ICD-10) Pain in pelvis ?R10.2 - Pelvic and perineal pain (ICD-10) History of severe pre-eclampsia ?Z87.59 - Personal history of other complications of , childbirth and the puerperium (ICD-10) History of menorrhagia ?Z87.42 - Personal history of other diseases of the female genital tract (ICD-10) History of gestational diabetes mellitus (GDM) ?Z86.32 - Personal history of gestational diabetes (ICD-10) Hemorrhage in early ?O20.9 - Hemorrhage in early , unspecified (ICD-10) Ectopic ?O00.90 - Unspecified ectopic without intrauterine (ICD- 10) Surgical History (Updated 04/22/23 @ 14:14 by Rosey Baker) Status post delivery ?Z98.891 - History of uterine scar from previous surgery (ICD-10) Family History (Updated 04/22/23 @ 14:11 by Rosey Baker) Family/Other Diabetes Social History (Updated 04/22/23 @ 14:11 by Rosey Baker) Narrative: has 1 child, , nonsmoker Smoking Status: Never smoker Do you use any of these nicotine containing products: None Second hand tobacco smoke exposure: No How often do you have a drink containing alcohol: never How often do you have six or more drinks on one occasion: Never AUDIT-C Alcohol total score: 0 Non-prescribed substance use: denies use and other Non-prescribed substance use details: diet pills service: No Course Vital Signs Vital signs: Initial Vital Signs Temperature 97.2 F L 01/30/24 13:01 Temperature Source Temporal Artery Scan 01/30/24 13:01 Pulse Rate 96 01/30/24 13:01 Respiratory Rate 18 01/30/24 13:01 Blood Pressure 128/82 01/30/24 13:01 Blood Pressure Mean 97 01/30/24 13:01 Blood Pressure Position Sitting 01/30/24 13:01 Pulse Oximetry 98 01/30/24 13:01 Oxygen Delivery Method Room Air 01/30/24 13:01 Vital Signs Temperature 97.2 F L 01/30/24 13:01 Pulse Rate 96 01/30/24 13:01 Respiratory Rate 18 01/30/24 13:01 Blood Pressure 128/82 01/30/24 13:01 Pulse Oximetry 98 01/30/24 13:01 Oxygen Delivery Method Room Air 01/30/24 13:01 Temperature 97.2 F L 01/30/24 13:01 Pulse Rate 96 01/30/24 13:01 Respiratory Rate 18 01/30/24 13:01 Blood Pressure 128/82 01/30/24 13:01 Pulse Oximetry 98 01/30/24 13:01 Oxygen Delivery Method Room Air 01/30/24 13:01 Medical Decision Making Lab Data Labs: Lab Results 01/30/24 01/30/24 Range/Units 13:38 14:10 WBC 9.24 (4.50-11.00) K/uL RBC 4.63 (4.00-5.20) m/uL Hgb 13.2 (12.0-16.0) gm/dL Hct 40.5 (33.0-51.0) % MCV 88 (80-100) fL MCH 29 (26-34) pg MCHC 33 (32-36) gm/dL RDW Coeff of Yolanda 13.3 (11.5-15.5) % Plt Count 411 (140-440) K/uL Neut % (Auto) 63.1 (42.0-72.0) % Lymph % (Auto) 30.2 (20-44) % [place] % (Auto) 5.4 (0.0-11.0) % Eos % (Auto) 0.6 (0.0-7.0) % Baso % (Auto) 0.3 (0.0-3.0) % Neut # (Auto) 5.82 (1.7-7.0) K/uL Lymph # (Auto) 2.79 (0.90-2.90) K/uL [place] # (Auto) 0.50 (0.00-0.90) K/UL Eos # (Auto) 0.06 (0.00-0.50) K/uL Baso # (Auto) 0.03 (0.00-0.30) K/uL Abs Immat Gran (auto) 0.04 (0.00-0.30) K/uL Imm/Tot Granulo (auto) 0.4 % Sodium 137 (135-149) mmol/L Potassium 4.6 (3.6-5.1) mmol/L Chloride 104 (96-114) mmol/L Carbon Dioxide 26 (20-32) mmol/L Anion Gap 7 (7-15) mEq/L BUN 15 (5-24) mg/dL Creatinine 0.5 (0.5-1.5) mg/dL Estimated Creat Clear 148.04 Estimated GFR 129 ml/min Glucose 174 H (60-115) mg/dL Calcium 9.1 (8.4-10.6) mg/dL HCG, Quant 280.64 mIU/mL Urine Color Yellow (Yellow) Urine Appearance Clear (Clear) Urine pH 7.5 (5.0-8.5) Ur Specific [place] 1.020 (1.000-1.030) Urine Protein Negative (Negative) Urine Glucose (UA) Negative (Negative) Urine Ketones Negative (Negative) Urine Blood Negative (Negative) Urine Nitrite Negative (Negative) Urine Bilirubin Negative (Negative) Urine Urobilinogen 0.2 (0.2-1.0) Ur Leukocyte Esterase Negative (Negative) Urine RBC 0-2 (0-2) Urine WBC 0-2 (0-5) Ur Squamous Epith Cells None (None-Few) Urine Bacteria Few A (None) Discharge Plan Discharge Clinical Impression: Pelvic pain affecting Patient Disposition: Home, Self-Care Condition: Stable Instructions: Abdominal Pain in (ED) Additional Instructions: As we discussed, at this time her laboratory workup looks reassuring. Your hormone level is 280 today. Your ultrasound does not show the location of your baby. This may be because your is too early and the baby is too small to be seen on ultrasound. Unfortunately, when we cannot see the baby, we cannot determine whether the baby is growing appropriately in your uterus or if this is a tubal . Monitor your symptoms carefully and if you have any worsening pain, vaginal bleeding, lightheadedness, or any other concern, return to the ER right away. Please call your OB office to arrange a follow-up appointment within it 1 week to have a repeat ultrasound. You can also ask your OB doctor to repeat your hormone level in the next 48-72 hours. Prescriptions: No Action Ozempic 0.25 mg or 0.5 mg(2 mg/1.5 mL) pen injector 0.25 mg subcut QWEEK Rx Instructions: for 4 doses sumatriptan succinate [Imitrex] 50 mg tablet See Rx Instructions PO .COMPLEX Qty: 9 0RF Rx Instructions: take 1 tab at onset of headache; if no relief may repeat 1 tab after at least 2 hrs; max = 4 tabs/24 hr PO Follow Up/Referrals: Levy Hudson PA-C [Primary Care Provider] - Stand Alone Forms: [employer] Info Instructions
--- NOTE | 2024-02-09 16:08 | ED_ITS ---
HPI - General Adult General Chief complaint: Abdominal Pain Stated complaint: Early , abdominal pain Time Seen by Provider: 01/30/24 13:04 History of Present Illness HPI narrative: called pt back today at 4pm. she answered. doing well. she will follow up with her doctor to recheck urine for asymptomatic bacteriuria Related Data Home Medications Medication Instructions Recorded Confirmed insulin glargine 100 unit/mL (3 unit subcut 02/09/24 02/09/24 mL) subcutaneous pen (Lantus Solostar U-100 Insulin) insulin lispro 100 unit/mL subcut 02/09/24 02/09/24 subcutaneous pen Previous Rx's Medication Instructions Recorded sumatriptan succinate 50 mg tablet See Rx Instructions PO .COMPLEX #9 04/27/23 (Imitrex) tabs clotrimazole 1 % vaginal cream 1 appful vaginal QHS #45 grams 02/09/24 Allergies Allergy/AdvReac Type Severity Reaction Status Date / Time No Known Drug Allergies Allergy Verified 02/09/24 12:50 PFSH PFSH Medical History Vertigo ?R42 - Dizziness and giddiness (ICD-10) Nausea & vomiting ?R11.2 - Nausea with vomiting, unspecified (ICD-10) Dizziness ?R42 - Dizziness and giddiness (ICD-10) Vaginal bleeding ?N93.9 - Abnormal uterine and vaginal bleeding, unspecified (ICD-10) Toothache ?K08.89 - Other specified disorders of teeth and supporting structures (ICD- 10) Right lower quadrant abdominal pain ?R10.31 - Right lower quadrant pain (ICD-10) ?Z34.90 - Encounter for supervision of normal , unspecified, unspecified trimester (ICD-10) Pain in pelvis ?R10.2 - Pelvic and perineal pain (ICD-10) History of severe pre-eclampsia ?Z87.59 - Personal history of other complications of , childbirth and the puerperium (ICD-10) History of menorrhagia ?Z87.42 - Personal history of other diseases of the female genital tract (ICD-10) History of gestational diabetes mellitus (GDM) ?Z86.32 - Personal history of gestational diabetes (ICD-10) Hemorrhage in early ?O20.9 - Hemorrhage in early , unspecified (ICD-10) Ectopic ?O00.90 - Unspecified ectopic without intrauterine (ICD- 10) Surgical History Status post delivery ?Z98.891 - History of uterine scar from previous surgery (ICD-10) Family History Family/Other Diabetes Social History Narrative: has 1 child, , nonsmoker Smoking Status: Never smoker Do you use any of these nicotine containing products: None Second hand tobacco smoke exposure: No How often do you have a drink containing alcohol: never How often do you have six or more drinks on one occasion: Never AUDIT-C Alcohol total score: 0 Non-prescribed substance use: denies use and other Non-prescribed substance use details: diet pills service: No Course Vital Signs Vital signs: Initial Vital Signs Temperature 97.2 F L 01/30/24 13:01 Temperature Source Temporal Artery Scan 01/30/24 13:01 Pulse Rate 96 01/30/24 13:01 Respiratory Rate 18 01/30/24 13:01 Blood Pressure 128/82 01/30/24 13:01 Blood Pressure Mean 97 01/30/24 13:01 Blood Pressure Position Sitting 01/30/24 13:01 Pulse Oximetry 98 01/30/24 13:01 Oxygen Delivery Method Room Air 01/30/24 13:01 Vital Signs Temperature 97.2 F L 01/30/24 13:01 Pulse Rate 96 01/30/24 13:01 Respiratory Rate 18 01/30/24 13:01 Blood Pressure 128/82 01/30/24 13:01 Pulse Oximetry 98 01/30/24 13:01 Oxygen Delivery Method Room Air 01/30/24 13:01 Temperature 97.2 F L 01/30/24 13:01 Pulse Rate 96 01/30/24 13:01 Respiratory Rate 18 01/30/24 13:01 Blood Pressure 128/82 01/30/24 13:01 Pulse Oximetry 98 01/30/24 13:01 Oxygen Delivery Method Room Air 01/30/24 13:01 Medical Decision Making Lab Data Labs: Lab Results 01/30/24 01/30/24 Range/Units 13:38 14:10 WBC 9.24 (4.50-11.00) K/uL RBC 4.63 (4.00-5.20) m/uL Hgb 13.2 (12.0-16.0) gm/dL Hct 40.5 (33.0-51.0) % MCV 88 (80-100) fL MCH 29 (26-34) pg MCHC 33 (32-36) gm/dL RDW Coeff of Yolanda 13.3 (11.5-15.5) % Plt Count 411 (140-440) K/uL Neut % (Auto) 63.1 (42.0-72.0) % Lymph % (Auto) 30.2 (20-44) % [place] % (Auto) 5.4 (0.0-11.0) % Eos % (Auto) 0.6 (0.0-7.0) % Baso % (Auto) 0.3 (0.0-3.0) % Neut # (Auto) 5.82 (1.7-7.0) K/uL Lymph # (Auto) 2.79 (0.90-2.90) K/uL [place] # (Auto) 0.50 (0.00-0.90) K/UL Eos # (Auto) 0.06 (0.00-0.50) K/uL Baso # (Auto) 0.03 (0.00-0.30) K/uL Abs Immat Gran (auto) 0.04 (0.00-0.30) K/uL Imm/Tot Granulo (auto) 0.4 % Sodium 137 (135-149) mmol/L Potassium 4.6 (3.6-5.1) mmol/L Chloride 104 (96-114) mmol/L Carbon Dioxide 26 (20-32) mmol/L Anion Gap 7 (7-15) mEq/L BUN 15 (5-24) mg/dL Creatinine 0.5 (0.5-1.5) mg/dL Estimated Creat Clear 148.04 Estimated GFR 129 ml/min Glucose 174 H (60-115) mg/dL Calcium 9.1 (8.4-10.6) mg/dL HCG, Quant 280.64 mIU/mL Urine Color Yellow (Yellow) Urine Appearance Clear (Clear) Urine pH 7.5 (5.0-8.5) Ur Specific [place] 1.020 (1.000-1.030) Urine Protein Negative (Negative) Urine Glucose (UA) Negative (Negative) Urine Ketones Negative (Negative) Urine Blood Negative (Negative) Urine Nitrite Negative (Negative) Urine Bilirubin Negative (Negative) Urine Urobilinogen 0.2 (0.2-1.0) Ur Leukocyte Esterase Negative (Negative) Urine RBC 0-2 (0-2) Urine WBC 0-2 (0-5) Ur Squamous Epith Cells None (None-Few) Urine Bacteria Few A (None) Discharge Plan Discharge Clinical Impression: Pelvic pain affecting Patient Disposition: Home, Self-Care Condition: Stable Instructions: Abdominal Pain in (ED) Additional Instructions: As we discussed, at this time her laboratory workup looks reassuring. Your hormone level is 280 today. Your ultrasound does not show the location of your baby. This may be because your is too early and the baby is too small to be seen on ultrasound. Unfortunately, when we cannot see the baby, we cannot determine whether the baby is growing appropriately in your uterus or if this is a tubal . Monitor your symptoms carefully and if you have any worsening pain, vaginal bleeding, lightheadedness, or any other concern, return to the ER right away. Please call your OB office to arrange a follow-up appointment within it 1 week to have a repeat ultrasound. You can also ask your OB doctor to repeat your hormone level in the next 48-72 hours. Prescriptions: No Action sumatriptan succinate [Imitrex] 50 mg tablet See Rx Instructions PO .COMPLEX Qty: 9 0RF Rx Instructions: take 1 tab at onset of headache; if no relief may repeat 1 tab after at least 2 hrs; max = 4 tabs/24 hr PO insulin lispro 100 unit/mL insulin pen subcut insulin glargine [Lantus Solostar U-100 Insulin] 100 unit/mL (3 mL) insulin pen subcut clotrimazole 1 % cream 1 appful vaginal QHS Qty: 45 0RF Follow Up/Referrals: Levy Hudson PA-C [Primary Care Provider] - Stand Alone [facility] Info Instructions
== END 2024-01-30 16:59 | disposition home or self-care (01) ==
PROVIDERS: Emergency Provider Emergency Medicine; PCP Physician Assistant Medical
DX: R10.2 Pelvic and perineal pain (principal); Z3A.01 Less than 8 weeks gestation of pregnancy
CPT/HCPCS: 36415; 76817; 80048; 81001; 84702; 85025; 87086; 87186; 99281; 99283

== ENCOUNTER 2024-02-09 12:30 | Outpatient (CLI) | payer MEDICAID, SELFPAY | END 2024-02-09 12:31 | disposition home or self-care (01) | LOC: NFLDREF 02-13 07:07 | PROVIDERS: PCP Physician Assistant Medical; Referring Provider Physician Assistant Medical; Visit Provider Physician Assistant | DX: N89.8 Other specified noninflammatory disorders of vagina (principal); B37.31 Acute candidiasis of vulva and vagina | CPT/HCPCS: 87086 ==